=== PATIENT | female | born 1950 | race Caucasian/White ===

== ENCOUNTER 2017-02-14 07:49 | Emergency (ER) | payer MEDICARE, OTHER ==
[2017-02-14 07:56] VITALS: RESP 18; TEMP 97
[2017-02-14] MEDS ORDERED: HYDROcodone/APAP 5-325MG 1 EACH TAB PO STA (08:14)
--- NOTE | 2017-02-14 08:17 | ED ---
Fall HPI - General Chief Complaint: Fall Stated Complaint: fall knee injury Time Seen by Provider: 02/14/17 08:06 Source: patient, RN notes reviewed Mode of arrival: ambulatory Limitations: no limitations - History of Present Illness Initial Comments: 66-year-old female presents emergency Department with chief complaint of fall, left rib pain. Patient states that it was dark in the living room this morning states she tripped and fell. She states she bumped her left knee on the coffee table right knee on another object. Patient states that she is able to ambulate they're just sore. Patient states that she has no hip pain denies any neck or back pain. She states that she bumped her head on the couch but did not feel dazed or lose consciousness. Patient states that she has no headache no dizziness no blurred vision no focal weakness denies any nausea vomiting. Patient states she is left anterior to lateral rib pain and states it is worse with deep inspiration. Patient's had prior rib fractures on the right never on the left but states it feels very similar. Patient denies any other injuries at this time. Patient did not take anything for the pain. - Related Data Home Medications Medication Instructions Recorded Confirmed Ascorbic Acid [Vitamin C] 500 mg PO DAILY 06/25/15 02/17/16 Aspirin [Adult Low Dose Aspirin EC] 81 mg PO DAILY 06/25/15 02/17/16 Atenolol [Tenormin] 25 mg PO QAM 06/25/15 02/17/16 Atorvastatin [Lipitor] 20 mg PO Q48H 06/25/15 02/17/16 Enalapril Maleate [Vasotec] 10 mg PO BID 06/25/15 02/17/16 Gabapentin [Neurontin] 300 mg PO TID 06/25/15 02/17/16 Loratadine [Claritin] 10 mg PO DAILY 06/25/15 02/17/16 Multivit-Min/FA/Lycopen/Lutein 1 tab PO DAILY 06/25/15 02/17/16 [Centrum Silver Tablet] Potassium Gluconate 99 mg PO DAILY 06/25/15 02/17/16 Calcium Carbonate [Calcium] 1,200 mg PO DAILY 01/21/16 02/17/16 Furosemide [Lasix] 10 mg PO DAILY PRN 01/21/16 02/17/16 Hydrocodone/Acetaminophen [[place] 1 tab PO Q6H PRN 01/21/16 02/17/16 10-325] Ibuprofen [Motrin] 200 - 800 mg PO Q6HR PRN 01/21/16 02/17/16 Zinc Gluconate [Zinc] 50 mg PO DAILY 01/21/16 02/17/16 ALPRAZolam [Xanax] 1 mg PO HS 02/17/16 02/17/16 Cyclobenzaprine [Flexeril] 10 mg PO TID PRN 02/17/16 02/17/16 Previous Rx's Medication Instructions Recorded Meclizine [Antivert] 12.5 mg PO Q6H #30 tablet 02/17/16 Allergies Allergy/AdvReac Type Severity Reaction Status Date / Time Penicillins Allergy Swelling Verified 02/14/17 07:56 silver Allergy blister Verified 02/14/17 07:56 sulfamethoxazole Allergy Rash/Hives Verified 02/14/17 07:56 [From Bactrim] trimethoprim [From Bactrim] Allergy Rash/Hives Verified 02/14/17 07:56 adhesive AdvReac pulls skin Verified 02/14/17 07:56 off gold Allergy blister Uncoded 02/14/17 07:56 metal Allergy blister Uncoded 02/14/17 07:56 Review of Systems ROS Statement: Those systems with pertinent positive or pertinent negative responses have been documented in the HPI. ROS Other: All systems not noted in ROS Statement are negative. Past Medical History Past Medical History: Coronary Artery Disease (CAD), Hypertension Additional Past Medical History / Comment(s): neuropathy sciatica History of Any Multi-Drug Resistant Organisms: None Reported Past Surgical History: Heart Catheterization With Stent, Orthopedic Surgery Additional Past Surgical History / Comment(s): shoulder surg Past Anesthesia/Blood Transfusion Reactions: No Reported Reaction Date of Last Stent Placement:: 1998 Past Psychological History: No Psychological Hx Reported Smoking Status: Former smoker Past Alcohol Use History: Rare Past Drug Use History: None Reported - Past Family History Mother Family Medical History: No Reported History General Exam Limitations: no limitations General appearance: alert, in no apparent distress Head exam: Present: atraumatic, normocephalic, normal inspection Eye exam: Present: normal appearance, PERRL, EOMI. Absent: scleral icterus, conjunctival injection, periorbital swelling ENT exam: Present: normal exam, normal oropharynx, mucous membranes moist, TM's normal bilaterally, normal external ear exam Neck exam: Present: normal inspection, full ROM. Absent: tenderness, meningismus, lymphadenopathy Respiratory exam: Present: normal lung sounds bilaterally, chest wall tenderness (Moderate left anterior to lateral rib tenderness). Absent: respiratory distress, wheezes, rales, rhonchi, stridor Cardiovascular Exam: Present: regular rate, normal rhythm, normal heart sounds. Absent: systolic murmur, diastolic murmur, rubs, gallop, clicks GI/Abdominal exam: Present: soft, normal bowel sounds. Absent: distended, tenderness, guarding, rebound, rigid Extremities exam: Present: normal inspection, full ROM, normal capillary refill. Absent: tenderness, pedal edema, joint swelling, calf tenderness, other (Small area of ecchymosis noted to the left knee patient has full range of motion passive and active there is minimal tenderness, bilateral lower extremities full range of motion right knee small erythematous capri noted. Minimally tender in no pain with range of motion remaining extremity exam within normal limits) Back exam: Present: normal inspection, full ROM. Absent: tenderness, muscle spasm, paraspinal tenderness, vertebral tenderness Neurological exam: Present: alert, oriented X3, CN II-XII intact, reflexes normal. Absent: motor sensory deficit Skin exam: Present: warm, dry, intact, normal color. Absent: rash Course Vital Signs 02/14/17 07:52 Temperature 97.0 F L Pulse Rate 66 Respiratory 18 Rate Blood Pressure 200/81 O2 Sat by Pulse 97 Oximetry Medical Decision Making - Medical Decision Making 66-year-old female presented for fall. Patient primary complaint of left rib pain. Patient x-rays not showing any evidence of displaced rib fracture there may be a small nondisplaced that was not identified I did expenses the patient. Patient be discharged with pain medication advised to take 10 deep inspirations every hour. Return parameters were discussed. Patient had contusions noted to her knee had full range of motion and was able to ambulate. Patient states that she did hit her head but this is only on the couch padding she has no headache no dizziness. Disposition Clinical Impression: Fall, Contusion, knee, Contusion of rib on left side Disposition: HOME SELF-CARE Condition: Stable Instructions: Rib Contusion (ED) Additional Instructions: Please return to the Emergency Department if symptoms worsen or any other concerns. Referrals: Daniel Bansal DO [Primary Care Provider] - 1-2 days Time of Disposition: 08:42
--- NOTE | 2017-02-14 08:32 | XR ---
EXAMINATION TYPE: XR ribs LT w pa chest x-ray DATE OF EXAM: 02/14/2017 CLINICAL HISTORY: Following injury today with left-sided rib pain. TECHNIQUE: Single frontal view of the chest is obtained. A frontal and oblique images of the left-sided ribs are acquired. COMPARISON: None FINDINGS: There is chronic parenchymal change without suspicious focal air space opacity, pleural ef fusion, or pneumothorax seen bilaterally. The cardiac silhouette size is stable and upper limits of normal with atherosclerotic thoracic aorta. The osseous structures are demineralized. Dedicated images of the left-sided ribs show no acute displaced left-sided rib fracture. Incidental n ote is made of coronary stent on last image acquired. IMPRESSION: 1. No acute cardiopulmonary process. 2. No acute displaced left-sided rib fracture is evident.
[2017-02-14 09:00] VITALS: BP 162/77; PULSE 63
== END 2017-02-14 08:53 | disposition home or self-care (01) ==
LOC: EC 07:49
DX: S80.02XA Contusion of left knee, initial encounter (principal); S20.212A Contusion of left front wall of thorax, initial encounter; I10 Essential (primary) hypertension; I25.10 Atherosclerotic heart disease of native coronary artery without angina pectoris; Z87.891 Personal history of nicotine dependence; Z79.82 Long term (current) use of aspirin; Z79.899 Other long term (current) drug therapy; Z88.0 Allergy status to penicillin; Z88.2 Allergy status to sulfonamides; Z91.048 Other nonmedicinal substance allergy status; Z95.5 Presence of coronary angioplasty implant and graft; Z98.890 Other specified postprocedural states; W01.190A Fall on same level from slipping, tripping and stumbling with subsequent striking against furniture, initial encounter; Y92.009 Unspecified place in unspecified non-institutional (private) residence as the place of occurrence of the external cause
CPT/HCPCS: 99283

== ENCOUNTER 2017-02-24 14:10 | Emergency (ER) | payer MEDICARE, OTHER ==
[2017-02-24] MEDS ORDERED: KETOROLAC 30 MG/ML 1 ML VIAL IVP STA (15:03)
[2017-02-24] MEDS ORDERED: RX INFO: IV CONTRAST WAS GIVEN 1 EACH MISC MISCELLANE PRN (15:03)
--- NOTE | 2017-02-24 15:20 | ED ---
General Adult HPI - General Chief complaint: Recheck/Abnormal Lab/Rx Stated complaint: bruising/pain from fall last week Time Seen by Provider: 02/24/17 14:45 Source: patient Mode of arrival: ambulatory Limitations: no limitations - History of Present Illness Initial comments: Patient presents with a chief complaint of rib pain. She was seen one week ago after a fall accident. Patient had an x-ray that time that showed no acute fractures or intrathoracic process. Over the last week though the patient states that her pain has been getting worse. She has a bruise on her anterior chest. Patient states that it feels a deep ache, it is worsened with movement and palpation, and is alleviated with rest. Patient denies being short of breath, she states that she went for a 3 mile walk yesterday and did not have any difficulty and felt good. Patient did not have any other complaints at this time. - Related Data Home Medications Medication Instructions Recorded Confirmed Ascorbic Acid [Vitamin C] 500 mg PO DAILY 06/25/15 02/24/17 Aspirin [Adult Low Dose Aspirin EC] 81 mg PO DAILY 06/25/15 02/24/17 Atenolol [Tenormin] 25 mg PO QAM 06/25/15 02/24/17 Atorvastatin [Lipitor] 20 mg PO DAILY 06/25/15 02/24/17 Enalapril Maleate [Vasotec] 10 mg PO BID 06/25/15 02/24/17 Gabapentin [Neurontin] 300 mg PO TID 06/25/15 02/24/17 Loratadine [Claritin] 10 mg PO DAILY 06/25/15 02/24/17 Multivit-Min/FA/Lycopen/Lutein 1 tab PO DAILY 06/25/15 02/24/17 [Centrum Silver Tablet] Potassium Gluconate 99 mg PO DAILY 06/25/15 02/24/17 Calcium Carbonate [Calcium] 1,200 mg PO DAILY 01/21/16 02/24/17 Furosemide [Lasix] 10 mg PO DAILY PRN 01/21/16 02/24/17 Hydrocodone/Acetaminophen [[place] 1 tab PO Q6H PRN 01/21/16 02/24/17 10-325] Ibuprofen [Motrin] 200 - 800 mg PO Q6HR PRN 01/21/16 02/24/17 Zinc Gluconate [Zinc] 50 mg PO DAILY 01/21/16 02/24/17 ALPRAZolam [Xanax] 2 mg PO HS 02/24/17 02/24/17 Meclizine [Antivert] 12.5 mg PO Q6H PRN 02/24/17 02/24/17 Previous Rx's Medication Instructions Recorded Ibuprofen [Motrin] 800 mg PO Q6HR #21 tab 02/24/17 Methocarbamol [Robaxin] 500 mg PO QID #15 tab 02/24/17 Allergies Allergy/AdvReac Type Severity Reaction Status Date / Time Penicillins Allergy Swelling Verified 02/24/17 15:34 silver Allergy blister Verified 02/24/17 15:34 sulfamethoxazole Allergy Rash/Hives Verified 02/24/17 15:34 [From Bactrim] trimethoprim [From Bactrim] Allergy Rash/Hives Verified 02/24/17 15:34 adhesive AdvReac pulls skin Verified 02/24/17 15:34 off gold Allergy blister Uncoded 02/24/17 14:16 metal Allergy blister Uncoded 02/24/17 14:16 Review of Systems ROS Statement: Those systems with pertinent positive or pertinent negative responses have been documented in the HPI. Patient denies dizziness, lightheadedness, visual changes, chest pain, shortness of breath, nausea, vomiting, dysuria, constipation, diarrhea. ROS Other: All systems not noted in ROS Statement are negative. Past Medical History Past Medical History: Coronary Artery Disease (CAD), Hypertension Additional Past Medical History / Comment(s): neuropathy sciatica History of Any Multi-Drug Resistant Organisms: None Reported Past Surgical History: Heart Catheterization With Stent, Orthopedic Surgery Additional Past Surgical History / Comment(s): shoulder surg Past Anesthesia/Blood Transfusion Reactions: No Reported Reaction Date of Last Stent Placement:: 1998 Past Psychological History: No Psychological Hx Reported Smoking Status: Former smoker Past Alcohol Use History: Rare Past Drug Use History: None Reported - Past Family History Mother Family Medical History: No Reported History General Exam Limitations: no limitations General appearance: alert, in no apparent distress Head exam: Present: atraumatic, normocephalic Eye exam: Present: normal appearance, PERRL ENT exam: Present: normal exam, normal oropharynx Neck exam: Present: normal inspection Respiratory exam: Present: normal lung sounds bilaterally Cardiovascular Exam: Present: regular rate, normal rhythm GI/Abdominal exam: Present: soft Rectal exam: Present: deferred Extremities exam: Present: normal inspection Back exam: Present: normal inspection Neurological exam: Present: oriented X3 Psychiatric exam: Present: normal affect, normal mood Skin exam: Present: warm, dry, intact, other (Patient has ecchymosis over the anterior middle left aspect of her chest. There is some tenderness to palpation of the chest wall.) Course Vital Signs 02/24/17 02/24/17 02/24/17 14:16 15:29 16:37 Temperature 98.5 F 97.2 F L 98 F Pulse Rate 68 64 60 Respiratory 17 16 16 Rate Blood Pressure 147/89 132/70 102/60 O2 Sat by Pulse 97 98 95 Oximetry Medical Decision Making - Medical Decision Making Patient presents with a chief complaint anterior chest wall pain status post a fall 1 week ago. Patient was evaluated initially had a normal chest x-ray that showed no acute displaced fractures or intrathoracic process. Of note bone mineral density was diminished on that film. Patient returns today saying that her pain has increased over the last week and seems to be worse with movement. It is suspected that this is musculoskeletal in nature. Patient will be sent for a computed tomography scan of the chest today to rule out occult fracture. We'll send basic labs, and get EKG. Vital signs are stable initially, patient is in no acute distress. 3:42 PM EKG performed at 1536 shows normal sinus rhythm with a rate of 65 bpm. The left bundle branch block present. When compared to study performed 02/17/2016 EKG is similar. 5:43 PM Computed tomography scan of the chest with contrast shows no bony abnormality. Further there is no evidence of pleural effusion or lung contusion. At this point, patient is likely suffering from chest wall pain secondary to fall. Further discussion with the patient reveals that she has been taking Motrin periodically however she has not been on any consistent medications for pain control. I discussed appropriately dosed Motrin with her, and Robaxin for use at nighttime for sleep and muscle spasm. At this point, patient remains stable , she is safe for discharge and follow-up primary care. She is instructed to return to the emergency department if her symptoms worsen or change in anyway. - Lab Data Result diagrams: 02/24/17 15:20 02/24/17 15:20 Lab Results 02/24/17 02/24/17 Range/Units 15:20 15:20 WBC 7.7 (3.8-10.6) k/uL RBC 4.51 (3.80-5.40) m/uL Hgb 13.8 (11.4-16.0) gm/dL Hct 41.8 (34.0-46.0) % MCV 92.8 (80.0-100.0) fL MCH 30.7 (25.0-35.0) pg MCHC 33.1 (31.0-37.0) g/dL RDW 13.3 (11.5-15.5) % Plt Count 244 (150-450) k/uL Neutrophils % 61 % Lymphocytes % 28 % Monocytes % 6 % Eosinophils % 3 % Basophils % 1 % Neutrophils # 4.7 (1.3-7.7) k/uL Lymphocytes # 2.2 (1.0-4.8) k/uL Monocytes # 0.4 (0-1.0) k/uL Eosinophils # 0.3 (0-0.7) k/uL Basophils # 0.1 (0-0.2) k/uL Sodium 140 (137-145) mmol/L Potassium 4.3 (3.5-5.1) mmol/L Chloride 103 (98-107) mmol/L Carbon Dioxide 28 (22-30) mmol/L Anion Gap 9 mmol/L BUN 15 (7-17) mg/dL Creatinine 0.75 (0.52-1.04) mg/dL Est GFR (MDRD) Af Amer >60 (>60 ml/min/1.73 sqM) Est GFR (MDRD) Non-Af >60 (>60 ml/min/1.73 sqM) Glucose 87 (74-99) mg/dL Calcium 9.2 (8.4-10.2) mg/dL Disposition Clinical Impression: Chest pain, musculoskeletal, Contusion of rib on left side Disposition: HOME SELF-CARE Condition: Good Instructions: Chest Pain (ED) Prescriptions: Ibuprofen [Motrin] 800 mg PO Q6HR #21 tab Methocarbamol [Robaxin] 500 mg PO QID #15 tab Referrals: Daniel Bansal DO [Primary Care Provider] - 1-2 days
[2017-02-24 15:30] VITALS: RESP 16
[2017-02-24 15:40] LABS: Basophils # (A) 0.1 k/uL (0-0.2); Basophils % (A) 1 %; CH 31.1; CHCM 33.6; Eosinophils # (A) 0.3 k/uL (0-0.7); Eosinophils % (A) 3 %; HCT 41.8 % (34.0-46.0); HDW 2.35; HGB 13.8 gm/dL (11.4-16.0); Luc # (Auto) 0.11; Luc % (Auto) 1; Lymphocytes # (A) 2.2 k/uL (1.0-4.8); Lymphocytes % (A) 28 %; MCH 30.7 pg (25.0-35.0); MCHC 33.1 g/dL (31.0-37.0); MCV 92.8 fL (80.0-100.0); Mean Platelet Volume 7.7; Monocytes # (A) 0.4 k/uL (0-1.0); Monocytes % (A) 6 %; Neutrophils # (A) 4.7 k/uL (1.3-7.7); Neutrophils % (A) 61 %; RBC 4.51 m/uL (3.80-5.40); RDW 13.3 % (11.5-15.5); WBC 7.7 k/uL (3.8-10.6); WBC (Perox) 7.37
[2017-02-24 15:49] LABS: Anion Gap 9 mmol/L; Blood Urea Nitrogen 15 mg/dL (7-17); Calcium 9.2 mg/dL (8.4-10.2); Carbon Dioxide 28 mmol/L (22-30); Chloride 103 mmol/L (98-107); Glucose 87 mg/dL (74-99); Non-African American GFR(MDRD) >60 (>60 ml/min/1.73 sqM); Potassium 4.3 mmol/L (3.5-5.1); Sodium 140 mmol/L (137-145)
--- NOTE | 2017-02-24 17:13 | CT ---
EXAMINATION TYPE: CT chest w con DATE OF EXAM: 02/24/2017 COMPARISON: NONE HISTORY: Fall 1 week ago. Left sided rib pain and bruising. CT DLP: 806.20 mGycm Automated exposure control for dose reduction was used. CONTRAST: CT scan of the chest is performed with IV Contrast, patient injected with 100 mL of Omnipaque 300. FINDINGS: There is no acute or subacute fracture or malalignment. Multifocal right rib remodeling not ed, consistent with remote healed prior fractures. LUNGS: The lungs are grossly clear, there is no concerning parenchymal mass or nodule identified. T here is no pleural effusion or pneumothorax seen. The tracheobronchial tree is patent. MEDIASTINUM: There are no greater than 1 cm hilar or mediastinal lymph nodes. No pericardial effusi on is seen. There is mild enlargement of the cardiac silhouette with panchamber enlargement. Prominen t left and right coronary calcifications are appreciated on in addition to scattered atherosclerotic locations throughout the visualized arterial anatomy. OTHER: The spleen and remainder of the visualized subdiaphragmatic structures are unremarkable. No a dditional significant abnormality is seen. IMPRESSION: 1. Negative for acute or subacute fracture or malalignment. Negative for pleural effusion or pneumoth orax. 2. Incidental coronary calcifications.
[2017-02-24 17:59] VITALS: BP 115/70; PULSE 57; TEMP 97.4
== END 2017-02-24 17:59 | disposition home or self-care (01) ==
LOC: EC 14:10
DX: S20.212D Contusion of left front wall of thorax, subsequent encounter (principal); R07.89 Other chest pain; I44.7 Left bundle-branch block, unspecified; I25.10 Atherosclerotic heart disease of native coronary artery without angina pectoris; I10 Essential (primary) hypertension; Z87.891 Personal history of nicotine dependence; Z88.0 Allergy status to penicillin; Z88.2 Allergy status to sulfonamides; Z91.048 Other nonmedicinal substance allergy status; Z79.82 Long term (current) use of aspirin; Z79.899 Other long term (current) drug therapy
CPT/HCPCS: 36415; 93005; 80048; 85025; 71260; 99284; 96374; J1885; Q9967

== ENCOUNTER 2017-11-26 11:55 | Emergency (ER) | payer MEDICARE ==
[2017-11-26 12:06] VITALS: BP 139/73; PULSE 64; RESP 18; TEMP 98.4
--- NOTE | 2017-11-26 12:24 | ED ---
Fall HPI - General Chief Complaint: Fall Stated Complaint: Fell/shoulder/arm injury Time Seen by Provider: 11/26/17 12:12 Source: patient, RN notes reviewed Mode of arrival: wheelchair Limitations: no limitations - History of Present Illness Initial Comments: This is a pleasant 67-year-old female who presents emergency department after falling at her mother's nursing facility. She states that she stubbed her toe on a wood floor tripping forward and falling into a door jam. Patient states that the majority pain is at the right elbow. Although she does have some pain radiating toward the wrist and toward the shoulder. Patient states the pain is sharp, exacerbated by movement, relieved by rest, patient also has some mild pain to the right side of her neck, however, no midline tenderness. No shortness of breath or chest pain. No abdominal pain. No rib pain. Patient was able to get up and walk on her own. Patient sustained no head injury, no loc. no other injury. Onset/Timin -: hour(s) Fall From: standing When Fall Occurred: 1 hour [employer] Fall Witnessed: yes, by family, yes, by bystander Loss of Consciousness: none Prolonged Down Time?: no Symptoms Prior to Fall: none Location - Extremities: Right: Shoulder, Elbow, Hand Severity: severe Quality: sharp Context: tripped/slipped - Related Data Home Medications Medication Instructions Recorded Confirmed Ascorbic Acid [Vitamin C] 500 mg PO DAILY 06/25/15 02/24/17 Aspirin [Adult Low Dose Aspirin EC] 81 mg PO DAILY 06/25/15 02/24/17 Atenolol [Tenormin] 25 mg PO QAM 06/25/15 02/24/17 Atorvastatin [Lipitor] 20 mg PO DAILY 06/25/15 02/24/17 Enalapril Maleate [Vasotec] 10 mg PO BID 06/25/15 02/24/17 Gabapentin [Neurontin] 300 mg PO TID 06/25/15 02/24/17 Loratadine [Claritin] 10 mg PO DAILY 06/25/15 02/24/17 Multivit-Min/FA/Lycopen/Lutein 1 tab PO DAILY 06/25/15 02/24/17 [Centrum Silver Tablet] Potassium Gluconate 99 mg PO DAILY 06/25/15 02/24/17 Calcium Carbonate [Calcium] 1,200 mg PO DAILY 01/21/16 02/24/17 Furosemide [Lasix] 10 mg PO DAILY PRN 01/21/16 02/24/17 Hydrocodone/Acetaminophen [[place] 1 tab PO Q6H PRN 01/21/16 02/24/17 10-325] Ibuprofen [Motrin] 200 - 800 mg PO Q6HR PRN 01/21/16 02/24/17 Zinc Gluconate [Zinc] 50 mg PO DAILY 01/21/16 02/24/17 ALPRAZolam [Xanax] 2 mg PO HS 02/24/17 02/24/17 Meclizine [Antivert] 12.5 mg PO Q6H PRN 02/24/17 02/24/17 Previous Rx's Medication Instructions Recorded Ibuprofen [Motrin] 800 mg PO Q6HR #21 tab 02/24/17 Methocarbamol [Robaxin] 500 mg PO QID #15 tab 02/24/17 HYDROcodone/APAP 5-325MG [[place] 1 tab PO Q6HR PRN 3 Days #12 tab 11/26/17 5-325] Allergies Allergy/AdvReac Type Severity Reaction Status Date / Time Penicillins Allergy Swelling Verified 11/26/17 12:06 silver Allergy blister Verified 11/26/17 12:06 sulfamethoxazole Allergy Rash/Hives Verified 11/26/17 12:06 [From Bactrim] trimethoprim [From Bactrim] Allergy Rash/Hives Verified 11/26/17 12:06 adhesive AdvReac pulls skin Verified 11/26/17 12:06 off gold Allergy blister Uncoded 11/26/17 12:06 metal Allergy blister Uncoded 11/26/17 12:06 Review of Systems ROS Statement: Those systems with pertinent positive or pertinent negative responses have been documented in the HPI. ROS Other: All systems not noted in ROS Statement are negative. Past Medical History Past Medical History: Coronary Artery Disease (CAD), Hypertension Additional Past Medical History / Comment(s): neuropathy sciatica History of Any Multi-Drug Resistant Organisms: None Reported Past Surgical History: Heart Catheterization With Stent, Orthopedic Surgery Additional Past Surgical History / Comment(s): shoulder surg Past Anesthesia/Blood Transfusion Reactions: No Reported Reaction Date of Last Stent Placement:: 1998 Past Psychological History: No Psychological Hx Reported Smoking Status: Former smoker Past Alcohol Use History: Rare Past Drug Use History: None Reported Additional History: Past medical history was reviewed - Past Family History Mother Family Medical History: No Reported History General Exam - General Exam Comments Initial Comments: this is an obese female in mild distress. Limitations: no limitations General appearance: alert, in no apparent distress Head exam: Present: atraumatic, normocephalic, normal inspection Eye exam: Present: normal appearance, PERRL, EOMI. Absent: scleral icterus, conjunctival injection, periorbital swelling ENT exam: Present: normal exam, mucous membranes moist Neck exam: Present: normal inspection, tenderness (right side neck muscular), full ROM. Absent: meningismus, lymphadenopathy Respiratory exam: Present: normal lung sounds bilaterally. Absent: respiratory distress, wheezes, rales, rhonchi, stridor Cardiovascular Exam: Present: regular rate, normal rhythm, normal heart sounds. Absent: systolic murmur, diastolic murmur, rubs, gallop, clicks GI/Abdominal exam: Present: soft. Absent: distended, tenderness, guarding, rebound, rigid Extremities exam: Present: normal inspection, tenderness, normal capillary refill. Absent: full ROM, pedal edema, joint swelling, calf tenderness Right Shoulder Exam: Present: normal inspection, tenderness. Absent: full ROM, swelling, abrasion, laceration, ecchymosis, deformity, crepitus, dislocation, erythema, tenderness over AC joint Upper Arm exam: Present: normal inspection. Absent: tenderness Elbow exam: Present: normal inspection, tenderness. Absent: full ROM, swelling , abrasion, ecchymosis Forearm Wrist exam: Present: normal inspection, full ROM. Absent: tenderness Hand Wrist exam: Present: normal inspection, full ROM, tenderness. Absent: swelling, abrasion Neuro motor exam: Present: wrist extension intact, thumb opposition intact, thumb IP flexion intact, thumb adduction intact, fingers 2-5 abduction intact Vascular: Present: normal capillary refill. Absent: vascular compromise, Pallo , pulse deficit radial art, pulse deficit ulnar art, pulse deficit brachial art Back exam: Present: normal inspection, full ROM Neurological exam: Present: alert, oriented X3, CN II-XII intact Psychiatric exam: Present: normal affect, normal mood Skin exam: Present: warm, dry, intact, normal color. Absent: rash Course Vital Signs 11/26/17 12:02 Temperature 98.4 F Pulse Rate 64 Respiratory 18 Rate Blood Pressure 139/73 O2 Sat by Pulse 97 Oximetry Procedures - Orthopedic Splinting/Casting Injury #1 Side: right Upper Extremity Injury Location: elbow Upper Extremity Immobilizer: ulnar gutter (Long-arm, sling. Neurovascular status intact both pre-and post-application.) Medical Decision Making - Medical Decision Making I did review all of the plain film x-rays of the cervical spine, right shoulder , right elbow, right wrist, there were no abnormalities, acutely to the shoulder wrist and cervical spine as read by me awaiting radiology interpretation. I do believe there is a posterior fat pad on the right elbow, which is subtle. Studies were read by radiology prior to patient discharge. They were read as normal. Given the patient's symptomology and pain with supination and pronation I'm going to go ahead and splint her as well as put her in a sling and follow her up with orthopedics. We'll treat as a fractured otherwise noted. Return and follow-up parameters discussed. Case discussed with ER attending physician. Return to the ER at once if the symptoms worsen or problems or difficulties arise. Disposition Clinical Impression: Fracture of radial head, right, closed, Sprain of wrist, right, Cervical strain , acute, Strain of right shoulder Disposition: HOME SELF-CARE Condition: Good Instructions: Fall Prevention for Older Adults (ED), Elbow Fracture (ED), Rotator Cuff Injury (ED) Additional Instructions: Return to the ER at once if the symptoms worsen or problems or difficulties arise. Prescriptions: HYDROcodone/APAP 5-325MG [[place] 5-325] 1 tab PO Q6HR PRN 3 Days #12 tab PRN Reason: Pain Is patient prescribed a controlled substance at d/c from ED?: Yes When asked, does pt state using other controlled substances?: No Referrals: Nabil Mireles MD [STAFF PHYSICIAN] - 11/28/17 Time of Disposition: 13:38
[2017-11-26] MEDS ORDERED: MORPHINE SULFATE 4 MG/ML SYRINGE IM STA (13:15)
[2017-11-26] MEDS ORDERED: KETOROLAC 60 MG/2 ML VIAL IM STA (13:15)
--- NOTE | 2017-11-26 13:16 | XR ---
EXAMINATION TYPE: XR elbow complete RT , 3 VIEWS DATE OF EXAM ORDERED: 11/26/2017 HISTORY: Pain. COMPARISON: None. FINDINGS: No fracture, dislocation or elbow joint effusion is seen. IMPRESSION: NO ACUTE OSSEOUS LESION.
--- NOTE | 2017-11-26 13:18 | XR ---
EXAMINATION TYPE: XR wrist complete RT , 4 VIEWS DATE OF EXAM ORDERED: 11/26/2017 HISTORY: Pain. COMPARISON: None. FINDINGS: There are degenerative changes in the right first carpal metacarpal joint. There is an uln ar minus variant. No fracture is identified. A well-corticated ossific fragment just distal to the ul enid styloid may relate to previous trauma. There is some mild widening of the scapholunate distance. IMPRESSION: 1. NO ACUTE OSSEOUS LESION. 2. EVIDENCE OF PREVIOUS TRAUMA. 3. I COULD NOT EXCLUDE DISRUPTION OF THE SCAPHOLUNATE LIGAMENT. 4. DEGENERATIVE CHANGE IN THE FIRST CARPAL METACARPAL JOINT.
--- NOTE | 2017-11-26 13:19 | XR ---
EXAMINATION TYPE: XR shoulder complete RT , 4 VIEWS DATE OF EXAM ORDERED: 11/26/2017 HISTORY: Pain. COMPARISON: None. FINDINGS: No fracture, dislocation or other acute osseous lesion is seen. IMPRESSION: NO ACUTE OSSEOUS LESION.
--- NOTE | 2017-11-26 13:20 | XR ---
EXAMINATION TYPE: XR cervical spine limited , 4 VIEWS DATE OF EXAM ORDERED: 11/26/2017 HISTORY: Pain. COMPARISON: None. FINDINGS: The spine is only well-visualized the level of C5 in the lateral projection. Alignment bel ow this level is normal. Atlantoaxial relationships are normal. No acute fracture is seen. Prevertebr al soft tissues are normal. IMPRESSION: LIMITED STUDY DEMONSTRATING NO ACUTE OSSEOUS LESION.
== END 2017-11-26 14:10 | disposition home or self-care (01) ==
LOC: EC 11:55
DX: S52.121A Displaced fracture of head of right radius, initial encounter for closed fracture (principal); S63.501A Unspecified sprain of right wrist, initial encounter; S16.1XXA Strain of muscle, fascia and tendon at neck level, initial encounter; S46.911A Strain of unspecified muscle, fascia and tendon at shoulder and upper arm level, right arm, initial encounter; M54.2 Cervicalgia; I10 Essential (primary) hypertension; I25.10 Atherosclerotic heart disease of native coronary artery without angina pectoris; G62.9 Polyneuropathy, unspecified; E66.9 Obesity, unspecified; Z87.891 Personal history of nicotine dependence; Z79.82 Long term (current) use of aspirin; Z79.899 Other long term (current) drug therapy; Z88.0 Allergy status to penicillin; Z88.1 Allergy status to other antibiotic agents; Z91.09 Other allergy status, other than to drugs and biological substances; Z98.890 Other specified postprocedural states; Z68.36 Body mass index [BMI] 36.0-36.9, adult; W18.09XA Striking against other object with subsequent fall, initial encounter; Y92.89 Other specified places as the place of occurrence of the external cause
CPT/HCPCS: 99283; 29105; 96372 ×2; 72040; 73030; 73080; 73110; J2270; J1885

== ENCOUNTER → 2017-12-06 | Outpatient (CLI) | payer MEDICARE ==
--- NOTE | 2017-12-06 12:37 | XR ---
EXAMINATION TYPE: XR knee complete RT DATE OF EXAM: 12/06/2017 COMPARISON: NONE HISTORY: Fall on right side November 26 pain TECHNIQUE: Three-view right knee FINDINGS: There is narrowing of the medial compartment joint space. Lateral femoral condylar and late ral tibial plateau spurring is present. No acute fractures evident. No joint effusion is evident. There is loss of the patellofemoral joint s pace with posterior patellar spurring superiorly and inferiorly. Upright views were obtained. There i s greater loss of the joint space of the long the medial compartment on the upright views. IMPRESSION: 1. Moderately advanced degenerative change medial compartment right knee. Moderate narrowing of the patellofemoral joint space is present and spurring is present from the lateral compartment joint spac e. 2. No acute fractures identified
--- NOTE | 2017-12-06 13:12 | XR ---
EXAMINATION TYPE: XR ankle complete RT DATE OF EXAM: 12/06/2017 COMPARISON: NONE HISTORY: Pain left knee pain right ankle SIDE SWELLING TECHNIQUE: Three-view right ankle is performed. FINDINGS: Ankle mortise is intact. No displaced fractures are evident. Diffuse soft tissue swelling m ay be present, slightly greater along the lateral malleolus region. Plantar and Achilles tendon calca stephanie heel spurs are present. IMPRESSION: 1. Mild diffuse soft tissue swelling. 2. Calcaneal heel spurs.
== END | disposition home or self-care (01) ==
LOC: RADXRMAIN 09:37
PROVIDERS: ATTEND Family Medicine
DX: M77.31 Calcaneal spur, right foot (principal); M79.89 Other specified soft tissue disorders; M76.41 Tibial collateral bursitis [Pellegrini-Stieda], right leg

== ENCOUNTER → 2018-02-21 | Outpatient (CLI) | payer MEDICARE ==
--- NOTE | 2018-02-21 23:16 | BD ---
EXAMINATION TYPE: Axial Bone Density DATE OF EXAM: 02/21/2018 COMPARISON: NONE CLINICAL HISTORY: 67-year-old female osteoporosis Height: 5 FT 1 1/2 IN Weight: 281 FRAX RISK QUESTIONS: History of Fracture in Adulthood: YES RISK FACTORS HISTORY OF: History of Wrist Fracture: YES When: 2017 Active: YES Postmenopausal woman: AGE 50 Lost more than 2 inches in height since high school: YES Frequent falls: YES MEDICATIONS: Additional Medications: ZINC, NEURONTIN, IMDUR, ATENOLOL, LASIX, Additional History: ZINC, EXAM MEASUREMENTS: Bone mineral densitometry was performed using the [employer] System. Bone mineral density as measured about the Lumbar spine is: ----- L1-L4(G/cm2): 1.243 T Score Values are as follows: ----- L2: -0.2 ----- L3: 0.9 ----- L4: 0.7 ----- L1-L4: 0.5 BASELINE Bone mineral density about the R hip (g/cm2): 0.879 Bone mineral density about the L hip (g/cm2): 0.892 T Score values are as follows: -----R Neck: -1.1 -----L Neck: -1.1 -----R Total: -0.4 -----L Total: -0.6 BASELINE IMPRESSION: Osteopenia (T Score between -2.5 and -1). There is slightly increased risk of fracture and the patient may be considered for treatment. Re-Screen 2-5 years. NOTE: T-SCORE=SD OF THE YOUNG ADULT MEAN.
--- NOTE | 2018-02-22 13:55 | MM ---
Reason for exam: screening (asymptomatic). Last mammogram was performed 1 year and 10 months ago. History: Patient is postmenopausal. Physical Findings: A clinical breast exam by your physician is recommended on an annual basis and results should be correlated with mammographic findings. MG Screening Mammo w CAD Bilateral CC and MLO view(s) were taken. Prior study comparison: April 23, 2016, bilateral MG screening mammo w CAD. September 11, 2012, bilateral digital screening mammo w/CAD. There are scattered fibroglandular densities. Benign appearing bilateral calcifications. There is no discrete abnormality. ASSESSMENT: Benign, BI-RAD 2 RECOMMENDATION: Routine screening mammogram of both breasts in 1 year.
== END | disposition home or self-care (01) ==
LOC: RADMAMWWP 11:50
PROVIDERS: ATTEND Family Medicine
DX: Z12.31 Encounter for screening mammogram for malignant neoplasm of breast (principal); M85.80 Other specified disorders of bone density and structure, unspecified site; M19.90 Unspecified osteoarthritis, unspecified site
CPT/HCPCS: 77067; 77080

== ENCOUNTER → 2018-07-25 | Outpatient (CLI) | payer MEDICARE ==
--- NOTE | 2018-07-25 13:33 | XR ---
EXAMINATION TYPE: XR shoulder complete 3 views LT, XR humerus 2 views LT XR forearm 2 views LT XR knee complete 3 views LT DATE OF EXAM: 07/25/2018 COMPARISON: NONE HISTORY: 68-year-old female with pain since trauma in fall FINDINGS: Left shoulder: Mild degenerative joint space narrowing and marginal spurring at the acromioclavicular joint. There i s prominent bony irregularity at the greater tuberosity. No acute fracture, subluxation, or dislocati on is seen. Some limitation in the exam due to underpenetration. Humerus: No humeral shaft fracture. Elbow articulation appears grossly intact. Forearm: No elbow joint effusion. No acute fracture of the visualized radius or ulna. Moderate to severe degen erative changes at the base of the thumb. Left knee: Left knee total arthroplasty is present. Both distal femoral and proximal tibial components of prosth esis appear well seated without periprosthetic fracture. Alignment grossly anatomic. Extensor mechani sm appears intact. Some nonspecific soft tissue calcifications anteromedially below the level of the knee joint line, nonspecific soft tissue calcifications or phleboliths. No knee joint effusion. IMPRESSION: 1. Left shoulder: Mild AC joint OA. Bony changes suggesting chronic rotator cuff tendinopathy. No acu te osseous abnormality seen. 2. Humerus and forearm: No acute osseous abnormality seen. Moderate to severe osteoarthrosis at the b ase of the thumb. 3. Left knee: Uncomplicated left total knee arthroplasty.
== END | disposition home or self-care (01) ==
LOC: RADXRMAIN 08:41
PROVIDERS: ATTEND Family Medicine
DX: M19.012 Primary osteoarthritis, left shoulder (principal); M19.042 Primary osteoarthritis, left hand; M79.602 Pain in left arm; M25.562 Pain in left knee; Z96.652 Presence of left artificial knee joint

== ENCOUNTER → 2018-12-05 | Outpatient (CLI) | payer MEDICARE ==
--- NOTE | 2018-12-05 15:15 | XR ---
EXAMINATION TYPE: XR hand complete RT DATE OF EXAM: 12/05/2018 CLINICAL HISTORY: First digit right hand pain at the metacarpal phalangeal joint after injury one yea r ago TECHNIQUE: Frontal, lateral and oblique images of the right hand are obtained. COMPARISON: 11/26/2017 FINDINGS: There is no acute fracture/dislocation evident in the right hand. There is advanced arthro jarek of the first carpometacarpal joint with opposing surface sclerosis, joint space narrowing, and osseous laceration. Findings are seen to a much lesser degree of the distal interphalangeal joints in the distribution of osteoarthritis. There is a well-corticated ovoid osseous fragment of the distal ulna from prior fracture deformity. Negative ulnar variance is also incidentally noted. Exam there is slight widening of the scapholunate interval as seen on the prior of 11/26/2017. The overlying soft tissue appears unremarkable. IMPRESSION: 1. There is no acute fracture or dislocation in the right hand. 2. Extensive arthropathy of the first carpometacarpal joint and mild of the distal interphalangeal eve int in the distribution of osteoarthritis. 3. Persistent widening of the scapholunate interval that may relate to scapholunate ligament tear and could be confirmed with MRI.
== END | disposition home or self-care (01) ==
LOC: RADXRMAIN 14:23
PROVIDERS: ATTEND Family Medicine
DX: M18.11 Unilateral primary osteoarthritis of first carpometacarpal joint, right hand (principal); M19.041 Primary osteoarthritis, right hand

== ENCOUNTER → 2019-04-13 | Outpatient (CLI) | payer MEDICARE ==
--- NOTE | 2019-04-17 08:23 | MM ---
Reason for exam: screening (asymptomatic). Last mammogram was performed 1 year and 2 months ago. History: Patient is postmenopausal. Physical Findings: A clinical breast exam by your physician is recommended on an annual basis and results should be correlated with mammographic findings. MG 3D Screening Mammo W/Cad Bilateral CC and MLO view(s) were taken. Prior study comparison: February 21, 2018, bilateral MG screening mammo w CAD. April 23, 2016, bilateral MG screening mammo w CAD. There are scattered fibroglandular densities. No significant changes when compared with prior studies. ASSESSMENT: Negative, BI-RAD 1 RECOMMENDATION: Routine screening mammogram of both breasts in 1 year.
== END | disposition home or self-care (01) ==
LOC: RADMAMWWP 09:56
PROVIDERS: ATTEND Family Medicine
DX: Z12.31 Encounter for screening mammogram for malignant neoplasm of breast (principal)
CPT/HCPCS: 77063; 77067

== ENCOUNTER 2019-05-05 08:58 | Emergency (ER) | payer MEDICARE ==
[2019-05-05] MEDS ORDERED: LIDOCAINE 2% GEL 30 ML TUBE TOPICAL ONE (09:18)
--- NOTE | 2019-05-05 09:21 | ED ---
Fall HPI - General Chief Complaint: Fall Stated Complaint: FALL, LEFT EAR LAC Time Seen by Provider: 05/05/19 09:05 Source: patient, EMS Mode of arrival: EMS Limitations: no limitations - History of Present Illness Initial Comments: 68-year-old female presents emergency Department with chief complaint of fall, head injury. Patient states that she slipped getting out of bed she states that she may have lost consciousness when she struck her head. Patient has a laceration to her left ear her tetanus is up-to-date last 5 years. Patient complains of left-sided headache pain denies neck pain, no extremity pain denies any back or upper and lower back pain. Denies any blood thinners. - Related Data Home Medications Medication Instructions Recorded Confirmed Aspirin [Adult Low Dose Aspirin EC] 81 mg PO DAILY 06/25/15 05/05/19 Atorvastatin [Lipitor] 20 mg PO HS 06/25/15 05/05/19 Gabapentin [Neurontin] 300 mg PO BID 06/25/15 05/05/19 Multivit-Min/FA/Lycopen/Lutein 1 tab PO DAILY 06/25/15 05/05/19 [Centrum Silver Tablet] Potassium Gluconate 99 mg PO DAILY 06/25/15 05/05/19 Furosemide [Lasix] 10 mg PO DAILY PRN 01/21/16 05/05/19 Zinc Gluconate [Zinc] 50 mg PO DAILY 01/21/16 05/05/19 ALPRAZolam [Xanax] 2 mg PO HS 02/24/17 05/05/19 Meclizine [Antivert] 12.5 mg PO Q6H PRN 02/24/17 05/05/19 Atenolol [Tenormin] 50 mg PO DAILY 05/05/19 05/05/19 Bromfenac Sodium [Prolensa Ophth 1 drop LEFT EYE DIRECTED 05/05/19 05/05/19 Soln] Calcium Carbonate/Vitamin D3 1 tab PO DAILY 05/05/19 05/05/19 [Calcium 500-Vit D3 200 Tablet] DULoxetine HCL [Cymbalta] 60 mg PO DAILY 05/05/19 05/05/19 Difluprednate [Durezol] 1 drop LEFT EYE DIRECTED 05/05/19 05/05/19 Enalapril Maleate [Vasotec] 20 mg PO BID 05/05/19 05/05/19 Loteprednol Etabonate [Alrex] 1 drop BOTH EYES DAILY 05/05/19 05/05/19 Ofloxacin 0.3% Ophth Soln [Ocuflox 1 drops LEFT EYE DIRECTED 05/05/19 05/05/19 Ophth Soln] Tetrahydrozoline HCl/Zinc Sulf 1 drop BOTH EYES DAILY PRN 05/05/19 05/05/19 [Visine Allergy Relief Drop] Allergies Allergy/AdvReac Type Severity Reaction Status Date / Time Penicillins Allergy Swelling Verified 05/05/19 09:43 silver Allergy blister Verified 05/05/19 09:43 sulfamethoxazole Allergy Rash/Hives Verified 05/05/19 09:43 [From Bactrim] trimethoprim [From Bactrim] Allergy Rash/Hives Verified 05/05/19 09:43 adhesive AdvReac pulls skin Verified 05/05/19 09:43 off gold Allergy blister Uncoded 05/05/19 09:43 metal Allergy blister Uncoded 05/05/19 09:43 Review of Systems ROS Statement: Those systems with pertinent positive or pertinent negative responses have been documented in the HPI. ROS Other: All systems not noted in ROS Statement are negative. Past Medical History Past Medical History: Coronary Artery Disease (CAD), Hypertension Additional Past Medical History / Comment(s): neuropathy sciatica History of Any Multi-Drug Resistant Organisms: None Reported Past Surgical History: Heart Catheterization With Stent, Orthopedic Surgery Additional Past Surgical History / Comment(s): shoulder surg, heart stents in 1997 Past Anesthesia/Blood Transfusion Reactions: No Reported Reaction Date of Last Stent Placement:: 1998 Past Psychological History: No Psychological Hx Reported Smoking Status: Former smoker Past Alcohol Use History: Rare Past Drug Use History: None Reported - Past Family History Mother Family Medical History: No Reported History General Exam General appearance: alert, in no apparent distress Head exam: Present: atraumatic, normocephalic, normal inspection Eye exam: Present: normal appearance, PERRL, EOMI. Absent: scleral icterus, conjunctival injection, periorbital swelling ENT exam: Present: normal oropharynx, mucous membranes moist, TM's normal bilaterally. Absent: normal exam, normal external ear exam (2 cm V-shaped laceration on posterior aspect of the left ear) Neck exam: Present: normal inspection, full ROM. Absent: tenderness, meningismus, lymphadenopathy Respiratory exam: Present: normal lung sounds bilaterally. Absent: respiratory distress, wheezes, rales, rhonchi, stridor Cardiovascular Exam: Present: regular rate, normal rhythm, normal heart sounds. Absent: systolic murmur, diastolic murmur, rubs, gallop, clicks Neurological exam: Present: alert, oriented X3, CN II-XII intact, reflexes normal. Absent: motor sensory deficit Skin exam: Present: warm, dry, intact, normal color. Absent: rash Course Vital Signs 05/05/19 08:59 Temperature 98.6 F Pulse Rate 74 Respiratory 18 Rate Blood Pressure 168/81 O2 Sat by Pulse 96 Oximetry Procedures - Laceration Laceration #1 Consent Obtained: verbal consent Indication: laceration Site: other (Left ear) Size (cm): 2 Description: flap, irregular Depth: simple, single layer Anesthetic Used: lidocaine 1%, without epi Anesthesia Technique: local infiltration Amount (mls): 3 Pre-repair: wound explored, irrigated extensively, deep structures intact Type of Sutures: nylon Size of Sutures: 5-0 Number of Sutures: 7 Technique: simple, interrupted Patient Tolerated Procedure: well, no complications Medical Decision Making - Medical Decision Making Patient CT of the brain and C-spine are unremarkable. Patient did have an irregular extensive laceration of her left ear this was approximated. We discussed wound care, wound recheck within 48 hours and return parameters. Disposition Clinical Impression: Fall, Laceration of left ear, Head injury Disposition: HOME SELF-CARE Condition: Stable Instructions (If sedation given, give patient instructions): Care For Your Stit ches (ED), Laceration (ED) Additional Instructions: Have sutures removed in 7 days.Please return to the Emergency Department if symptoms worsen or any other concerns. Is patient prescribed a controlled substance at d/c from ED?: No Referrals: Daniel Bansal DO [Primary Care Provider] - 1-2 days Time of Disposition: 11:06
--- NOTE | 2019-05-05 10:01 | CT ---
EXAMINATION TYPE: CT brain sandy rosario con DATE OF EXAM: 05/05/2019 COMPARISON: Previous study dated 01/04/2015. HISTORY: Fall, Left ear laceration CT DLP: 1837.4 mGycm Automated exposure control for dose reduction was used. TECHNIQUE: CT scan of the head and cervical spine are performed without contrast. FINDINGS: BRAIN: There are generalized changes of sulcal prominence and ventriculomegaly, compatible with atrop hic change. There is diffuse periventricular white matter lucency, compatible with chronic white katy er ischemic change. There is no acute focal lesion, mass effect or midline shift identified. I do not see evidence of intracranial blood. There is chronic mucoperiosteal thickening involving the maxillary sinuses bilaterally. The mastoid a ir cells are clear. The bony calvarium is intact. IMPRESSION: 1. NO ACUTE INTRACRANIAL ABNORMALITY. 2. MILD DEGENERATIVE CHANGE. 3. CHRONIC, BILATERAL MAXILLARY SINUS MUCOSAL DISEASE. CERVICAL SPINE: Visualized portions of the lungs are clear. Prevertebral soft tissues are normal. Vertebral body height and alignment are maintained. Atlantoaxial relationships are normal. There is d egenerative disc disease and mild hypertrophic spondylosis at C5-6. The facet and uncovertebral joint s are normal. No definite protrusion is seen. No fractures are identified. IMPRESSION: 1. NO ACUTE OSSEOUS LESION. 2. MINIMAL DEGENERATIVE CHANGE.
[2019-05-05] MEDS ORDERED: LIDOCAINE 1% INJ 10MG/ML (20 ML MDV) SQ ONE (10:24)
[2019-05-05 11:24] VITALS: BP 141/95; PULSE 66; RESP 16; TEMP 97.6
== END 2019-05-05 11:25 | disposition home or self-care (01) ==
LOC: EC 08:58
DX: S01.312A Laceration without foreign body of left ear, initial encounter (principal); I25.10 Atherosclerotic heart disease of native coronary artery without angina pectoris; I10 Essential (primary) hypertension; Z79.82 Long term (current) use of aspirin; Z79.899 Other long term (current) drug therapy; Z88.0 Allergy status to penicillin; Z88.1 Allergy status to other antibiotic agents; Z88.2 Allergy status to sulfonamides; Z91.048 Other nonmedicinal substance allergy status; Z88.8 Allergy status to other drugs, medicaments and biological substances; Z95.5 Presence of coronary angioplasty implant and graft; Z87.891 Personal history of nicotine dependence; W06.XXXA Fall from bed, initial encounter; Y92.003 Bedroom of unspecified non-institutional (private) residence as the place of occurrence of the external cause
CPT/HCPCS: 72125; 70450; 99283; 12011; J2001

== ENCOUNTER 2019-10-27 09:14 | Emergency (ER) | payer MEDICARE ==
[2019-10-27 09:20] VITALS: RESP 18; TEMP 97.8
--- NOTE | 2019-10-27 09:29 | ED ---
Lower Extremity Injury HPI - General Chief Complaint: Extremity Injury, Lower Stated Complaint: RIGHT FOOT SWELLING Time Seen by Provider: 10/27/19 09:21 Source: patient, RN notes reviewed, old records reviewed Mode of arrival: wheelchair Limitations: no limitations - History of Present Illness Initial Comments: This is a 69-year-old female presents emergency Department with chief complaint of right leg, right foot pain. Patient states that her foot was half asleep states that she went to stand up and states that she rolled her foot. Patient has pain in her lower leg, right foot region. She's had no prior fractures no prior surgeries. Patient denies any discoloration. Patient states there is mild swelling to the lateral portion of her foot. She denies any hip pain denies any fall or head trauma from this. - Related Data Home Medications Medication Instructions Recorded Confirmed Aspirin [Adult Low Dose Aspirin EC] 81 mg PO DAILY 06/25/15 05/05/19 Atorvastatin [Lipitor] 20 mg PO HS 06/25/15 05/05/19 Gabapentin [Neurontin] 300 mg PO BID 06/25/15 05/05/19 Multivit-Min/FA/Lycopen/Lutein 1 tab PO DAILY 06/25/15 05/05/19 [Centrum Silver Tablet] Potassium Gluconate 99 mg PO DAILY 06/25/15 05/05/19 Furosemide [Lasix] 10 mg PO DAILY PRN 01/21/16 05/05/19 Zinc Gluconate [Zinc] 50 mg PO DAILY 01/21/16 05/05/19 ALPRAZolam [Xanax] 2 mg PO HS 02/24/17 05/05/19 Meclizine [Antivert] 12.5 mg PO Q6H PRN 02/24/17 05/05/19 Atenolol [Tenormin] 50 mg PO DAILY 05/05/19 05/05/19 Bromfenac Sodium [Prolensa Ophth 1 drop LEFT EYE DIRECTED 05/05/19 05/05/19 Soln] Calcium Carbonate/Vitamin D3 1 tab PO DAILY 05/05/19 05/05/19 [Calcium 500-Vit D3 200 Tablet] DULoxetine HCL [Cymbalta] 60 mg PO DAILY 05/05/19 05/05/19 Difluprednate [Durezol] 1 drop LEFT EYE DIRECTED 05/05/19 05/05/19 Enalapril Maleate [Vasotec] 20 mg PO BID 05/05/19 05/05/19 Loteprednol Etabonate [Alrex] 1 drop BOTH EYES DAILY 05/05/19 05/05/19 Ofloxacin 0.3% Ophth Soln [Ocuflox 1 drops LEFT EYE DIRECTED 05/05/19 05/05/19 Ophth Soln] Tetrahydrozoline HCl/Zinc Sulf 1 drop BOTH EYES DAILY PRN 05/05/19 05/05/19 [Visine Allergy Relief Drop] Allergies Allergy/AdvReac Type Severity Reaction Status Date / Time Penicillins Allergy Swelling Verified 10/27/19 09:20 silver Allergy blister Verified 10/27/19 09:20 sulfamethoxazole Allergy Rash/Hives Verified 10/27/19 09:20 [From Bactrim] trimethoprim [From Bactrim] Allergy Rash/Hives Verified 10/27/19 09:20 adhesive AdvReac pulls skin Verified 10/27/19 09:20 off gold Allergy blister Uncoded 10/27/19 09:20 metal Allergy blister Uncoded 10/27/19 09:20 Review of Systems ROS Statement: Those systems with pertinent positive or pertinent negative responses have been documented in the HPI. ROS Other: All systems not noted in ROS Statement are negative. Past Medical History Past Medical History: Coronary Artery Disease (CAD), Hypertension Additional Past Medical History / Comment(s): neuropathy sciatica History of Any Multi-Drug Resistant Organisms: None Reported Past Surgical History: Heart Catheterization With Stent, Orthopedic Surgery Additional Past Surgical History / Comment(s): shoulder surg, heart stents in 1997 Past Anesthesia/Blood Transfusion Reactions: No Reported Reaction Date of Last Stent Placement:: 1998 Past Psychological History: No Psychological Hx Reported Smoking Status: Former smoker Past Alcohol Use History: Rare Past Drug Use History: None Reported - Past Family History Mother Family Medical History: No Reported History General Exam Limitations: no limitations General appearance: alert, in no apparent distress Head exam: Present: atraumatic, normocephalic, normal inspection Respiratory exam: Present: normal lung sounds bilaterally. Absent: respiratory distress, wheezes, rales, rhonchi, stridor Cardiovascular Exam: Present: regular rate, normal rhythm, normal heart sounds. Absent: systolic murmur, diastolic murmur, rubs, gallop, clicks Extremities exam: Present: other (There is tenderness the right foot no lateral portion of the fifth metatarsal region, pedal pulses dorsal pedis and posterior tibialis are equal bilaterally equal color equal warmth, there is some mild proximal tib-fib tenderness but no obvious deformity no noted swelling or erythema.) Neurological exam: Present: alert, oriented X3, CN II-XII intact, reflexes normal. Absent: motor sensory deficit Skin exam: Present: warm, dry, intact, normal color. Absent: rash Course Vital Signs 10/27/19 09:18 Temperature 97.8 F Pulse Rate 66 Respiratory 18 Rate Blood Pressure 164/129 O2 Sat by Pulse 96 Oximetry Procedures - Orthopedic Splinting/Casting Injury #1 Side: right Lower Extremity Injury Location: short leg, foot Lower Extremity Immobilizer: posterior splint, synthetic pre-padded splint Other Orthopedic Equipment: walker Medical Decision Making - Medical Decision Making 69-year-old female presented for right foot injury, right leg pain. X-ray shows evidence of right fifth metatarsal fracture. She's neurovascularly intact. Patient is advised to be nonweightbearing or limit weightbearing to right foot. She is advised follow-up with orthopedics on Tuesday return for any worsening symptoms. She was splinted and is walking device at home. Disposition Clinical Impression: Nondisplaced fracture of fifth right metatarsal bone Disposition: HOME SELF-CARE Condition: Stable Instructions (If sedation given, give patient instructions): Foot Fracture in Adults (ED) Additional Instructions: Please return to the Emergency Department if symptoms worsen or any other concerns. Is patient prescribed a controlled substance at d/c from ED?: No Referrals: Daniel Bansal DO [Primary Care Provider] - 1-2 days Nabil Mireles MD [STAFF PHYSICIAN] - 1-2 days Time of Disposition: 09:59
--- NOTE | 2019-10-27 09:43 | XR ---
EXAMINATION TYPE: XR foot complete RT , 3 VIEWS DATE OF EXAM ORDERED: 10/27/2019 HISTORY: pain. COMPARISON: None. FINDINGS: There is a mild hallux valgus deformity. There is an undisplaced fracture of the base of t he fifth metatarsal. There are both plantar and calcaneal spurs. There are degenerative changes in th e intertarsal row. IMPRESSION: 1. UNDISPLACED "DAS" FRACTURE OF THE FIFTH METATARSAL. 2. MILD HALLUX VALGUS DEFORMITY. 3. CALCANEAL SPURS. 4. DEGENERATIVE CHANGE CODE A: INITIAL ENCOUNTER FOR CLOSED FRACTURE.
--- NOTE | 2019-10-27 09:45 | XR ---
EXAMINATION TYPE: XR tibia fibula RT , 2 VIEWS DATE OF EXAM ORDERED: 10/27/2019 HISTORY: pain. COMPARISON: None. FINDINGS: . Also reaction along the middle diaphysis of the midshaft of the right fibula. This may b e related to previous trauma. There are degenerative changes within the right knee joint. No acute fr acture or dislocation is seen. IMPRESSION: NO ACUTE OSSEOUS LESION.
[2019-10-27] MEDS ORDERED: ACET/COD 300 MG/30 MG STARTER PACK 6 TAB BTL PO STA (09:59)
[2019-10-27 10:13] VITALS: BP 170/74; PULSE 75
== END 2019-10-27 10:15 | disposition home or self-care (01) ==
LOC: EC 09:14
DX: S92.354A Nondisplaced fracture of fifth metatarsal bone, right foot, initial encounter for closed fracture (principal); I25.10 Atherosclerotic heart disease of native coronary artery without angina pectoris; I10 Essential (primary) hypertension; G62.9 Polyneuropathy, unspecified; Z79.82 Long term (current) use of aspirin; Z79.899 Other long term (current) drug therapy; Z88.0 Allergy status to penicillin; Z88.1 Allergy status to other antibiotic agents; Z88.2 Allergy status to sulfonamides; Z91.048 Other nonmedicinal substance allergy status; Z87.891 Personal history of nicotine dependence; Z95.5 Presence of coronary angioplasty implant and graft; X50.9XXA Other and unspecified overexertion or strenuous movements or postures, initial encounter
CPT/HCPCS: 29515; 99284

== ENCOUNTER → 2020-02-15 | Outpatient (CLI) | payer MEDICARE | END | disposition home or self-care (01) | LOC: LABWHC1 11:27 | PROVIDERS: ATTEND Family Medicine | DX: R05 Cough (principal); R50.9 Fever, unspecified | CPT/HCPCS: U0003; C9803 ==

== ENCOUNTER 2020-04-21 12:55 | Emergency (ER) | payer MEDICARE ==
[2020-04-21 13:14] VITALS: RESP 18; TEMP 97.6
--- NOTE | 2020-04-21 13:21 | ED ---
Female Urogenital HPI - General Chief complaint: Vaginal Bleeding Stated complaint: Vaginal Bleeding Time Seen by Provider: 04/21/20 13:20 Source: patient Mode of arrival: wheelchair Limitations: no limitations - History of Present Illness Initial comments: Patient is 69-year-old female presenting to emergency Department with chief complaint of vaginal bleeding. Patient states the vaginal bleeding started this morning around 7 AM. Patient reports subsequently she developed some lower abdominal cramping. States there is some blood clots in the vagina that she was able to notice on her underwear. Patient believes this is vaginal bleeding rather than hematuria that is noted on the underwear. Patient states she's had a UTI several months ago but that was treated with antibiotics. She denies any vaginal itching, follow small or other discharge. Denies dysuria, increased urgency or frequency. Denies hematuria, hematochezia or melena. States she is sexually active with her . States that she was not sexually active prior to onset of symptoms. Abdominal surgical history includes and appendectomy. - Related Data Home Medications Medication Instructions Recorded Confirmed Aspirin [Adult Low Dose Aspirin EC] 81 mg PO DAILY 06/25/15 05/05/19 Atorvastatin [Lipitor] 20 mg PO HS 06/25/15 05/05/19 Gabapentin [Neurontin] 300 mg PO BID 06/25/15 05/05/19 Multivit-Min/FA/Lycopen/Lutein 1 tab PO DAILY 06/25/15 05/05/19 [Centrum Silver Tablet] Potassium Gluconate 99 mg PO DAILY 06/25/15 05/05/19 Furosemide [Lasix] 10 mg PO DAILY PRN 01/21/16 05/05/19 Zinc Gluconate [Zinc] 50 mg PO DAILY 01/21/16 05/05/19 ALPRAZolam [Xanax] 2 mg PO HS 02/24/17 05/05/19 Meclizine [Antivert] 12.5 mg PO Q6H PRN 02/24/17 05/05/19 Bromfenac Sodium [Prolensa Ophth 1 drop LEFT EYE DIRECTED 05/05/19 05/05/19 Soln] Calcium Carbonate/Vitamin D3 1 tab PO DAILY 05/05/19 05/05/19 [Calcium 500-Vit D3 200 Tablet] DULoxetine HCL [Cymbalta] 60 mg PO DAILY 05/05/19 05/05/19 Difluprednate [Durezol] 1 drop LEFT EYE DIRECTED 05/05/19 05/05/19 Enalapril Maleate [Vasotec] 20 mg PO BID 05/05/19 05/05/19 Loteprednol Etabonate [Alrex] 1 drop BOTH EYES DAILY 05/05/19 05/05/19 Ofloxacin 0.3% Ophth Soln [Ocuflox 1 drops LEFT EYE DIRECTED 05/05/19 05/05/19 Ophth Soln] Tetrahydrozoline HCl/Zinc Sulf 1 drop BOTH EYES DAILY PRN 05/05/19 05/05/19 [Visine Allergy Relief Drop] atenoloL [Tenormin] 50 mg PO DAILY 05/05/19 05/05/19 Allergies Allergy/AdvReac Type Severity Reaction Status Date / Time Penicillins Allergy Swelling Verified 04/21/20 13:15 silver Allergy blister Verified 04/21/20 13:15 sulfamethoxazole Allergy Rash/Hives Verified 04/21/20 13:15 [From Bactrim] trimethoprim [From Bactrim] Allergy Rash/Hives Verified 04/21/20 13:15 adhesive AdvReac pulls skin Verified 04/21/20 13:15 off gold Allergy blister Uncoded 04/21/20 13:15 metal Allergy blister Uncoded 04/21/20 13:15 Review of Systems ROS Statement: Those systems with pertinent positive or pertinent negative responses have been documented in the HPI. ROS Other: All systems not noted in ROS Statement are negative. Past Medical History Past Medical History: Coronary Artery Disease (CAD), Hypertension Additional Past Medical History / Comment(s): neuropathy sciatica History of Any Multi-Drug Resistant Organisms: None Reported Past Surgical History: Heart Catheterization With Stent, Orthopedic Surgery Additional Past Surgical History / Comment(s): shoulder surg, heart stents in 1997 Past Anesthesia/Blood Transfusion Reactions: No Reported Reaction Date of Last Stent Placement:: 1998 Past Psychological History: No Psychological Hx Reported Smoking Status: Former smoker Past Alcohol Use History: Rare Past Drug Use History: None Reported - Past Family History Mother Family Medical History: No Reported History General Exam Limitations: no limitations General appearance: alert, in no apparent distress, obese (Morbidly obese) Head exam: Present: atraumatic, normocephalic, normal inspection Eye exam: Present: normal appearance, PERRL, EOMI Pupils: Present: normal accommodation ENT exam: Present: normal exam, normal oropharynx, mucous membranes moist, TM's normal bilaterally, normal external ear exam Neck exam: Present: normal inspection, full ROM. Absent: tenderness Respiratory exam: Present: normal lung sounds bilaterally. Absent: respiratory distress, wheezes, rales Cardiovascular Exam: Present: regular rate, normal rhythm, normal heart sounds GI/Abdominal exam: Present: soft. Absent: distended, tenderness, guarding External exam: Present: normal external exam. Absent: erythema, swelling Speculum exam: Present: normal speculum exam, vaginal bleeding (Scant amount of vaginal bleeding). Absent: erythema, vaginal discharge Extremities exam: Present: normal inspection, full ROM, normal capillary refill, other (+2 ulnar and radial pulses bilaterally.). Absent: tenderness Back exam: Present: normal inspection, full ROM. Absent: tenderness, CVA tenderness (R), CVA tenderness (L) Neurological exam: Present: alert, oriented X3 Psychiatric exam: Present: normal affect, normal mood Skin exam: Present: warm, dry, intact, normal color Course Vital Signs 04/21/20 04/21/20 04/21/20 13:12 14:30 15:30 Temperature 97.6 F Pulse Rate 63 69 67 Respiratory 18 18 18 Rate Blood Pressure 132/71 193/84 139/68 O2 Sat by Pulse 97 98 98 Oximetry Medical Decision Making - Medical Decision Making Patient is a 69-year-old male presenting to the emergency department with a chief complaint of vaginal bleeding. On physical examination, patient has scant amount of vaginal bleeding. This appears to be residual blood rather than any active bleeding. CBC and CMP are unremarkable. UA is positive for moderate amounts of blood but no red blood cells. Elevated leukocyte esterase. No concern for urinary tract infection at this time. Transvaginal ultrasound along with a transabdominal per recommendation of the vascular technologist was performed. Imaging study was somewhat limiting due to the pain that the patient was not able to tolerate. The imaging study revealed leiomyomatous changes of the uterus. There is a concern for possible endometrial hyperplasia or cancer. Patient was advised to follow-up with a spanish moss picker. Strict return parameters were thoroughly discussed with patient is understanding and agreeable. Case discussed with physician. - Lab Data Result diagrams: 04/21/20 14:08 04/21/20 14:08 Lab Results 04/21/20 04/21/20 04/21/20 Range/Units 14:08 14:08 14:08 WBC 7.6 (3.8-10.6) k/uL RBC 4.69 (3.80-5.40) m/uL Hgb 13.8 (11.4-16.0) gm/dL Hct 42.7 (34.0-46.0) % MCV 91.1 (80.0-100.0) fL MCH 29.3 (25.0-35.0) pg MCHC 32.2 (31.0-37.0) g/dL RDW 12.5 (11.5-15.5) % Plt Count 244 (150-450) k/uL Neutrophils % 60 % Lymphocytes % 29 % Monocytes % 6 % Eosinophils % 3 % Basophils % 1 % Neutrophils # 4.5 (1.3-7.7) k/uL Lymphocytes # 2.2 (1.0-4.8) k/uL Monocytes # 0.4 (0-1.0) k/uL Eosinophils # 0.2 (0-0.7) k/uL Basophils # 0.1 (0-0.2) k/uL PT (9.0-12.0) sec INR (<1.2) APTT (22.0-30.0) sec Sodium 138 (137-145) mmol/L Potassium 4.2 (3.5-5.1) mmol/L Chloride 103 (98-107) mmol/L Carbon Dioxide 30 (22-30) mmol/L Anion Gap 5 mmol/L BUN 16 (7-17) mg/dL Creatinine 0.74 (0.52-1.04) mg/dL Est GFR (CKD-EPI)AfAm >90 (>60 ml/min/1.73 sqM) Est GFR (CKD-EPI)NonAf 84 (>60 ml/min/1.73 sqM) Glucose 105 H (74-99) mg/dL Calcium 9.3 (8.4-10.2) mg/dL Total Bilirubin 0.6 (0.2-1.3) mg/dL AST 34 (14-36) U/L ALT 24 (4-34) U/L Alkaline Phosphatase 94 (38-126) U/L Total Protein 7.0 (6.3-8.2) g/dL Albumin 4.3 (3.5-5.0) g/dL Urine Color Yellow Urine Appearance Clear (Clear) Urine pH 5.0 (5.0-8.0) Ur Specific [place] 1.023 (1.001-1.035) Urine Protein Negative (Negative) Urine Glucose (UA) Negative (Negative) Urine Ketones Negative (Negative) Urine Blood Small H (Negative) Urine Nitrite Negative (Negative) Urine Bilirubin Negative (Negative) Urine Urobilinogen <2.0 (<2.0) mg/dL Ur Leukocyte Esterase Moderate H (Negative) Urine RBC 5 (0-5) /hpf Urine WBC 2 (0-5) /hpf Ur Squamous Epith Cells 1 (0-4) /hpf Urine Bacteria Rare H (None) /hpf Urine Mucus Rare H (None) /hpf 04/21/20 Range/Units 14:08 WBC (3.8-10.6) k/uL RBC (3.80-5.40) m/uL Hgb (11.4-16.0) gm/dL Hct (34.0-46.0) % MCV (80.0-100.0) fL MCH (25.0-35.0) pg MCHC (31.0-37.0) g/dL RDW (11.5-15.5) % Plt Count (150-450) k/uL Neutrophils % % Lymphocytes % % Monocytes % % Eosinophils % % Basophils % % Neutrophils # (1.3-7.7) k/uL Lymphocytes # (1.0-4.8) k/uL Monocytes # (0-1.0) k/uL Eosinophils # (0-0.7) k/uL Basophils # (0-0.2) k/uL PT 10.4 (9.0-12.0) sec INR 1.0 (<1.2) APTT 23.1 (22.0-30.0) sec Sodium (137-145) mmol/L Potassium (3.5-5.1) mmol/L Chloride (98-107) mmol/L Carbon Dioxide (22-30) mmol/L Anion Gap mmol/L BUN (7-17) mg/dL Creatinine (0.52-1.04) mg/dL Est GFR (CKD-EPI)AfAm (>60 ml/min/1.73 sqM) Est GFR (CKD-EPI)NonAf (>60 ml/min/1.73 sqM) Glucose (74-99) mg/dL Calcium (8.4-10.2) mg/dL Total Bilirubin (0.2-1.3) mg/dL AST (14-36) U/L ALT (4-34) U/L Alkaline Phosphatase (38-126) U/L Total Protein (6.3-8.2) g/dL Albumin (3.5-5.0) g/dL Urine Color Urine Appearance (Clear) Urine pH (5.0-8.0) Ur Specific [place] (1.001-1.035) Urine Protein (Negative) Urine Glucose (UA) (Negative) Urine Ketones (Negative) Urine Blood (Negative) Urine Nitrite (Negative) Urine Bilirubin (Negative) Urine Urobilinogen (<2.0) mg/dL Ur Leukocyte Esterase (Negative) Urine RBC (0-5) /hpf Urine WBC (0-5) /hpf Ur Squamous Epith Cells (0-4) /hpf Urine Bacteria (None) /hpf Urine Mucus (None) /hpf Disposition Clinical Impression: Vaginal bleeding Disposition: HOME SELF-CARE Condition: Stable Instructions (If sedation given, give patient instructions): Uterine Artery Embolization for Fibroids (DC) Additional Instructions: Follow up with a spanish moss picker. Return to emergency department if symptoms worsen. Is patient prescribed a controlled substance at d/c from ED?: No Referrals: Vinay Mendez DO [Doctor of Osteopathic Medicine] - 1-2 days Daniel Bansal DO [Primary Care Provider] - 1-2 days Kusum Wyatt DO [Doctor of Osteopathic Medicine] - 1-2 days Amy Flores MD [STAFF PHYSICIAN] - 1-2 days Time of Disposition: 16:00
[2020-04-21 14:33] LABS: Basophils # (A) 0.1 k/uL (0-0.2); Basophils % (A) 1 %; Eosinophils # (A) 0.2 k/uL (0-0.7); Eosinophils % (A) 3 %; HCT 42.7 % (34.0-46.0); HGB 13.8 gm/dL (11.4-16.0); Lymphocytes # (A) 2.2 k/uL (1.0-4.8); Lymphocytes % (A) 29 %; MCH 29.3 pg (25.0-35.0); MCHC 32.2 g/dL (31.0-37.0); MCV 91.1 fL (80.0-100.0); Mean Platelet Volume 7.2; Monocytes # (A) 0.4 k/uL (0-1.0); Monocytes % (A) 6 %; Neutrophils # (A) 4.5 k/uL (1.3-7.7); Neutrophils % (A) 60 %; Platelet Count 244 k/uL (150-450); RBC 4.69 m/uL (3.80-5.40); RDW 12.5 % (11.5-15.5); WBC 7.6 k/uL (3.8-10.6)
[2020-04-21 14:41] LABS: Partial Thromboplastin Time 23.1 sec (22.0-30.0); Prothrombin Time 10.4 sec (9.0-12.0)
[2020-04-21 14:49] LABS: ALT 24 U/L (4-34); AST 34 U/L (14-36); African American GFR (CKD) >90 (>60 ml/min/1.73 sqM); Albumin 4.3 g/dL (3.5-5.0); Alkaline Phosphatase 94 U/L (38-126); Anion Gap 5 mmol/L; Appearance,Urine Clear (Clear); Bacteria,Urine Rare /hpf; Bilirubin,Urine Negative (Negative); Blood Urea Nitrogen 16 mg/dL (7-17); Blood,Urine Small (Negative); Calcium 9.3 mg/dL (8.4-10.2); Carbon Dioxide 30 mmol/L (22-30); Chloride 103 mmol/L (98-107); Color,Urine Yellow; Glucose 105 mg/dL (74-99); Glucose,Urine (UA) Negative (Negative); Ketones,Urine Negative (Negative); Leukocyte Esterase,Urine Moderate (Negative); Mucus,Urine Rare /hpf; Nitrite,Urine Negative (Negative); Non-African American GFR(CKD) 84 (>60 ml/min/1.73 sqM); Potassium 4.2 mmol/L (3.5-5.1); Protein,Urine Negative (Negative); RBC,Urine 5 /hpf (0-5); Sodium 138 mmol/L (137-145); Specific Gravity,Urine 1.023 (1.001-1.035); Squamous Epithelial Cell,Urine 1 /hpf (0-4); Total Bilirubin 0.6 mg/dL (0.2-1.3); Urobilinogen,Urine <2.0 mg/dL (<2.0); WBC,Urine 2 /hpf (0-5)
--- NOTE | 2020-04-21 15:34 | US ---
EXAMINATION TYPE: US transvaginal DATE OF EXAM: 04/21/2020 COMPARISON: NONE CLINICAL HISTORY: vaginal bleeding, concern for endometrial abdorman. abnormal vaginal bleeding TECHNIQUE: Transvaginal (TV). Transabdominal sonographic images of the pelvis were acquired. Trans vaginal sonographic images were medically necessary to better assess the following anatomy: Date of LMP: Post menopausal EXAM MEASUREMENTS: Uterus: 10.0 x 8.0 x 5.4 cm cm Endometrial Stripe: 0.4 cm Right Ovary: Not seen cm Left Ovary: Not seen cm 1. Uterus: Anteverted Partially Obscured by overlying bowel gas. Uterus appears enlarged and heter ogeneous. ? myomas. 2. Endometrium: wnl 3. Right Ovary: Not seen 4. Left Ovary: Not seen Spectral, color and waveform doppler imaging shows good arterial and venous flow within the ovaries ; there is no evidence for ovarian torsion. 5. Bilateral Adnexa: Obscured by overlying bowel gas, No masses seen. 6. Posterior cul-de-sac: Obscured by overlying bowel gas, No masses seen. Patient did not tolerate exam well due to pelvic discomfort and pain. She could not elevate hips to a llow full angling of transducer. IMPRESSION: 1. Leiomyomatous change of the uterus.
[2020-04-21 15:35] VITALS: BP 139/68; PULSE 67
== END 2020-04-21 16:31 | disposition home or self-care (01) ==
LOC: EC 12:55
DX: N93.9 Abnormal uterine and vaginal bleeding, unspecified (principal); R10.30 Lower abdominal pain, unspecified; I10 Essential (primary) hypertension; E66.01 Morbid (severe) obesity due to excess calories; I25.10 Atherosclerotic heart disease of native coronary artery without angina pectoris; Z79.899 Other long term (current) drug therapy; Z88.0 Allergy status to penicillin; Z88.2 Allergy status to sulfonamides; Z91.048 Other nonmedicinal substance allergy status; Z87.891 Personal history of nicotine dependence; Z95.5 Presence of coronary angioplasty implant and graft; Z68.41 Body mass index [BMI] 40.0-44.9, adult
CPT/HCPCS: 36415; 76830; 80053; 81001; 85025; 85610; 85730; 87086; 99284

== ENCOUNTER → 2020-05-07 | Outpatient (CLI) | payer MEDICARE ==
[2020-05-07 15:44] VITALS: BP 139/80; PULSE 121; RESP 20; TEMP 98; BMI 53.2
--- NOTE | 2020-05-07 16:13 | P.HPBAR ---
Bariatric H&P - History & Physicial H&P Date: 05/07/20 History & Physicial: Visit/CC: initial visit Patient initial contact: Initial weight: Initial weight in pounds: Height: 5 ft 2.5 in Initial BMI: Last weight: Current weight: 134.263 kg Current weight in pounds: 296.00 Current BMI: 53.2 [place] body weight (based on NIH guidelines): 51.029 kg Excess body weight loss: The patient is a 69 year-old F who presents for Bariatric Assessment. She comes in with 100+ pounds in 2 years for weight gain. She has tried exercise and food adjustment. She has knee replacement. She wants to get down to at least 177 pounds. No moderate GERD at this time. She has heart condition. She is l ooking into the sleeve gastrectomy. She had bleeding from the vagina. She was in the ER. She has never had a colonoscopy. Suprep. No stomach or esophageal cancer. Grandfather had stomach cancer. Still hasd gallbladder. She has a scar along the lower abdomen. Recommend possible check of gallbladder. Her family/son had gallbladder problems. She has not seen a data specialist. Past Medical History Past Medical History: Coronary Artery Disease (CAD), Hypertension Additional Past Medical History / Comment(s): neuropathy sciatica History of Any Multi-Drug Resistant Organisms: None Reported Past Surgical History: Heart Catheterization With Stent, Orthopedic Surgery Additional Past Surgical History / Comment(s): shoulder surg, heart stents in 1997 Past Anesthesia/Blood Transfusion Reactions: No Reported Reaction Date of Last Stent Placement:: 1998 Past Psychological History: No Psychological Hx Reported Smoking Status: Former smoker Past Alcohol Use History: Rare Past Drug Use History: None Reported - Past Family History Mother Family Medical History: No Reported History Surgical - Exam Vital Signs Temp Pulse Resp BP 98 F 121 H 20 139/80 05/07/20 15:13 05/07/20 15:13 05/07/20 15:13 05/07/20 15:13 Bariatric Checklist Checklist: Plan: Checklist: EGD: 1. Hiatal hernia: 2. H. Pylori: HgbA1c: Vitamin D: Smoking: Former smoker Primary care physician referral: Dr Bansal Psychiatry clearance: Cardiology clearance: Sleep study: Diet journal: VTE risk score: VTE risk level: Rehab needs at discharge:
== END | disposition home or self-care (01) ==
LOC: BARWHC3 14:46
PROVIDERS: ATTEND Surgery Plastic and Reconstructive Surgery
DX: E66.01 Morbid (severe) obesity due to excess calories (principal); Z68.43 Body mass index [BMI] 50.0-59.9, adult; Z87.891 Personal history of nicotine dependence
CPT/HCPCS: 99211

== ENCOUNTER → 2020-05-08 | Outpatient (CLI) | payer MEDICARE ==
[2020-05-08 15:53] LABS: HCT 43.1 % (34.0-46.0); HGB 14.2 gm/dL (11.4-16.0); MCH 30.9 pg (25.0-35.0); MCHC 32.8 g/dL (31.0-37.0); MCV 94.3 fL (80.0-100.0); Mean Platelet Volume 7.3; Platelet Count 243 k/uL (150-450); RBC 4.57 m/uL (3.80-5.40); RDW 12.3 % (11.5-15.5); WBC 6.4 k/uL (3.8-10.6)
[2020-05-08 23:18] LABS: Prothrombin Time 10.7 sec (9.9-11.9)
[2020-05-09 01:05] LABS: % Iron Saturation 23.21 (12.00-45.00); African American GFR (CKD) 75.1 (60.0-200.0); Albumin 4.5 g/dL (3.80-4.90); Albumin/Globulin Ratio 1.96 (1.60-3.17); Anion Gap 10.4 mmol/L (4.00-12.00); BUN/Creat Ratio 15.56 Ratio (12.00-20.00); Calcium 9.4 mg/dL (8.7-10.3); Carbon Dioxide 29.6 mmol/L (21.6-31.8); Chol/HDL Ratio 2.4; Globulin 2.3 g/dL (1.6-3.3); LDL Cholesterol,Calculated 37.8 mg/dL (0.0-131.0); Magnesium 1.9 mg/dL (1.5-2.4); Non-African American GFR(CKD) 64.8 (60.0-200.0); Phosphorus 3.4 mg/dL (2.4-5.1); Potassium 3.9 mmol/L (3.5-5.5); Total Bilirubin 0.7 mg/dL (0.3-1.2); Total Protein 6.8 g/dL (6.2-8.2); VLDL Calculation 35.2 mg/dL (5.00-40.00)
[2020-05-09 01:13] LABS: Ferritin 82.3 ng/mL (10.0-291.0)
[2020-05-09 12:50] LABS: Zinc, Serum 110 ug/dL (60-130)
[2020-05-09 13:11] LABS: Vit B1(Thiamine) 75 ug/L (38-122)
[2020-05-11 01:21] LABS: Selenium 126 mcg/L (63-160)
[2020-05-12 08:07] LABS: Vitamin A 34 ug/dL (38-106)
== END | disposition home or self-care (01) ==
LOC: LABWHC1 14:57
PROVIDERS: ATTEND Surgery Plastic and Reconstructive Surgery
DX: D50.8 Other iron deficiency anemias (principal); K90.89 Other intestinal malabsorption; E55.9 Vitamin D deficiency, unspecified; N19 Unspecified kidney failure; K50.90 Crohn's disease, unspecified, without complications; K74.1 Hepatic sclerosis; E89.1 Postprocedural hypoinsulinemia; E66.01 Morbid (severe) obesity due to excess calories
CPT/HCPCS: 36415; 80053; 80061; 82306; 82525; 82607; 82728; 82746; 83540; 83550; 83735; 83970; 84100; 84134; 84255; 84425; 84443; 84590; 84630; 85027; 85610; 85730; 93005

== ENCOUNTER → 2020-05-26 | Outpatient (CLI) | payer MEDICARE ==
[2020-05-26 13:15] LABS: Basophils # (A) 0.1 k/uL (0-0.2); Basophils % (A) 1 %; Eosinophils # (A) 0.2 k/uL (0-0.7); Eosinophils % (A) 2 %; HCT 43.2 % (34.0-46.0); Lymphocytes # (A) 2.2 k/uL (1.0-4.8); Lymphocytes % (A) 29 %; MCHC 32.3 g/dL (31.0-37.0); MCV 92.9 fL (80.0-100.0); Mean Platelet Volume 7.5; Monocytes # (A) 0.5 k/uL (0-1.0); Monocytes % (A) 7 %; Neutrophils # (A) 4.6 k/uL (1.3-7.7); Neutrophils % (A) 61 %; Platelet Count 229 k/uL (150-450); RBC 4.65 m/uL (3.80-5.40); RDW 12.1 % (11.5-15.5); WBC 7.7 k/uL (3.8-10.6)
== END | disposition home or self-care (01) ==
LOC: LABPAT 10:26
PROVIDERS: ATTEND Obstetrics & Gynecology
DX: Z01.818 Encounter for other preprocedural examination (principal); N95.0 Postmenopausal bleeding
CPT/HCPCS: 36415; 85025

== ENCOUNTER 2020-06-16 06:09 | Day surgery (SDC) | payer MEDICARE ==
[2020-06-11 14:07] VITALS: BMI 48.0
[~2020-06-16 06:09] MED LIST: LACTATED RINGERS 1,000 ML IV SCH; Pre Op ABX Message 1 EACH MISC MISCELLANE ONE
[2020-06-16] MEDS ORDERED: LIDOCAINE 1% (10MG/ML) FOR IV START INTRADERMA ONE (06:44)
[2020-06-16] MEDS ORDERED: ONDANSETRON 4 MG/2 ML VIAL ONE (06:51)
[2020-06-16] MEDS ORDERED: ONDANSETRON 4 MG/2 ML VIAL IVP ONE (06:52)
[2020-06-16] MEDS ORDERED: DEXAMETHASONE SOD PHOSPHATE 4 MG/ML 1 ML VIAL IVP ONE (06:53)
[2020-06-16] MEDS ORDERED: fentaNYL (PF) 50 MCG/ML 2 ML AMP ONE (07:22)
[2020-06-16] MEDS ORDERED: PROPOFOL 10 MG/ML 20 ML VIAL IV ONE (07:22)
[2020-06-16] MEDS ORDERED: SUCCINYLCHOLINE CHLORIDE 100 MG/5 ML SYR IV ONE (07:22)
[2020-06-16] MEDS ORDERED: LIDOCAINE 1% INJ 10MG/ML (20 ML MDV) ONE (07:22)
[2020-06-16] MEDS ORDERED: SILVER NITRATE APPLICATOR 1 EACH STICK..EA. TOPICAL ONE (07:56)
--- NOTE | 2020-06-16 08:07 | P.OP ---
Date of Procedure: 06/16/20 Preoperative Diagnosis: Post menopausal bleeding, morbid obesity, atrophic cervix Postoperative Diagnosis: Same, grade 3 cystocele, grade 2 rectocele, essentially negative appearing uterine cavity. Procedure(s) Performed: Hysteroscopy, fractional D&C Anesthesia: ILA Surgeon: Amy Flores Estimated Blood Loss (ml): 10 IV fluids (ml): 300 Urine output (ml): 200 Pathology: other (Cervical and uterine curettings) Condition: stable Disposition: PACU Operative Findings: Essentially negative appearing uterine cavity, no polyps tumors fibroids or defects. Grade 3 cystocele, grade 2 rectocele noted. Description of Procedure: Patient is brought to the operating suite where a general anesthetic is administered without difficulty. She's placed in the dorsal lithotomy position. The cervix, vagina, perineal bodies are all prepped and draped in usual sterile fashion. The appropriate timeout is performed to assure proper patient and procedural identification. Restrained for approximately 200 mL of clear yellow urine using a red Hui catheter. Speculum is then placed into the vagina. Anterior lip of the cervix is grasped with a double-tooth tenaculum. Kevorkian curette is used and cervical curettings are obtained, they are scant. Uterus then sounds to a depth of 8.5 cm in the anteverted position. The cervix is gently and systematically dilated using Hanks dilators. The hysteroscope is placed in the uterus is distended using sterile saline. Cavity is noted to be completely negative, no polyps, no unusual appearing tissue, no fibroids, no defects. Hysteroscope was removed. A small sharp curette is then used and all 4 quadrants and sampling of the cavity is performed. Again, a scant amount of tissue is obtained. When this is performed the hysteroscope is reintroduced and the cavity appears negative. All sponge needle and enhancement counts are correct. Perineal body is clean and dry. Peripads applied. Patient is brought back to recovery room in very good condition with stable vital signs including a blood pressure of 139/75, pulse 75, 100% O2 saturation. Total estimated blood loss 10 mL's. Patient will follow-up with me in the office in 2 weeks.
[2020-06-16 08:13] VITALS: TEMP 97.7
[2020-06-16 08:54] VITALS: RESP 18
[2020-06-16 09:11] VITALS: BP 149/79; PULSE 74
== END 2020-06-16 10:00 | disposition home or self-care (01) ==
LOC: OR 06:09
PROVIDERS: ATTEND Obstetrics & Gynecology
DX: N95.0 Postmenopausal bleeding (principal); N95.8 Other specified menopausal and perimenopausal disorders; N81.10 Cystocele, unspecified; N81.6 Rectocele; E66.01 Morbid (severe) obesity due to excess calories; R94.31 Abnormal electrocardiogram [ECG] [EKG]; I10 Essential (primary) hypertension; I25.10 Atherosclerotic heart disease of native coronary artery without angina pectoris; M48.00 Spinal stenosis, site unspecified; F41.9 Anxiety disorder, unspecified; Z91.09 Other allergy status, other than to drugs and biological substances; Z88.0 Allergy status to penicillin; Z88.2 Allergy status to sulfonamides; Z95.5 Presence of coronary angioplasty implant and graft; Z79.82 Long term (current) use of aspirin; Z79.899 Other long term (current) drug therapy; Z79.1 Long term (current) use of non-steroidal anti-inflammatories (NSAID); Z79.52 Long term (current) use of systemic steroids; Z87.891 Personal history of nicotine dependence; Z68.35 Body mass index [BMI] 35.0-35.9, adult; Z97.2 Presence of dental prosthetic device (complete) (partial); Z96.652 Presence of left artificial knee joint; Z98.890 Other specified postprocedural states; Z87.2 Personal history of diseases of the skin and subcutaneous tissue
CPT/HCPCS: 88305; 58558; J1100; J2405; J2001; J3010; J0330; J2704

== ENCOUNTER → 2020-08-26 | Outpatient (CLI) | payer MEDICARE ==
--- NOTE | 2020-08-29 10:49 | MM ---
Reason for exam: screening (asymptomatic). Last mammogram was performed 1 year and 4 months ago. History: Patient is postmenopausal. Physical Findings: A clinical breast exam by your physician is recommended on an annual basis and results should be correlated with mammographic findings. MG 3D Screening Mammo W/Cad Bilateral CC and MLO view(s) were taken. XCCM view(s) were taken of the left breast. Prior study comparison: April 13, 2019, bilateral MG 3d screening mammo w/cad. February 21, 2018, bilateral MG screening mammo w CAD. There are scattered fibroglandular densities. Benign oil cyst calcifications. No significant changes when compared with prior studies. ASSESSMENT: Negative, BI-RAD 1 RECOMMENDATION: Routine screening mammogram of both breasts in 1 year.
== END | disposition home or self-care (01) ==
LOC: RADMAMWWP 14:32
PROVIDERS: ATTEND Obstetrics & Gynecology
DX: Z12.31 Encounter for screening mammogram for malignant neoplasm of breast (principal)
CPT/HCPCS: 77063; 77067

== ENCOUNTER → 2020-11-04 | Outpatient (CLI) | payer MEDICARE ==
--- NOTE | 2020-11-04 17:21 | XR ---
EXAMINATION TYPE: XR knee complete bilateral DATE OF EXAM: 11/04/2020 COMPARISON: Left knee 07/25/2018 HISTORY: 70-year-old female with bilateral knee pain. M25.561, M25.562 TECHNIQUE: 3 views each side FINDINGS: Left: Slight progression in the heterotopic ossification along the anteromedial aspect of the left knee ky suring up to 2.8 x 2.6 cm. Left total knee arthroplasty is demonstrated. Both distal femoral and prox imal tibial components of prosthesis appear well seated. Underlying joint effusion is difficult to ex clude. Right: Moderate to severe narrowing of cartilage and joint space in the medial compartment. An 8 mm loose miladys dy is present in the medial gutter. Tricompartmental degenerative spurring is present. Joint space na rrowing also noted in the patellofemoral compartment. No acute fracture, subluxation, or dislocation. IMPRESSION: 1. Left: Unable to exclude underlying joint effusion. Some heterotopic ossification redemonstrated al vicenta the anteromedial soft tissues. Otherwise, uncomplicated appearance of the left total knee arthrop lasty. 2. Right: Moderate to severe medial and at least moderate patellofemoral compartment osteoarthrosis. No acute osseous abnormality seen.
== END | disposition home or self-care (01) ==
LOC: RADXRMAIN 13:52
PROVIDERS: ATTEND Family Medicine
DX: M17.11 Unilateral primary osteoarthritis, right knee (principal); M25.562 Pain in left knee; Z96.652 Presence of left artificial knee joint

== ENCOUNTER → 2020-11-28 | Outpatient (CLI) | payer MEDICARE | END | disposition home or self-care (01) | LOC: LABWHC1 14:00 | PROVIDERS: ATTEND Family Medicine | DX: Z01.812 Encounter for preprocedural laboratory examination (principal) | CPT/HCPCS: 87070 ==

== ENCOUNTER 2020-12-30 06:05 | Day surgery (SDC) | payer MEDICARE ==
[2020-12-26 10:39] VITALS: BMI 34.3
--- NOTE | 2020-12-29 09:34 | HP ---
HISTORY AND PHYSICAL CHIEF COMPLAINT: Right knee pain. HISTORY OF PRESENT ILLNESS: The patient is a 70-year-old retired female who presents with progressive right knee pain for the past 5 years. It has worsened recently. She is having pain with any weightbearing activities. She notes multiple falls recently. She has been using a walker. She has tried multiple medications in addition to injections with only partial temporary relief. She notes significant limitation. She has also worked on a weight loss program. PAST MEDICAL HISTORY: Significant for angina/coronary artery disease, arthritis, and hypertension. PAST SURGICAL HISTORY: Significant for bilateral shoulder surgery, left knee surgery, section, and cardiac stent placement. CURRENT MEDICATIONS: Aspirin, atenolol, Cymbalta, gabapentin, and Lipitor. ALLERGIES: She has allergies to PENICILLIN and SULFA. FAMILY HISTORY: Significant for heart disease. SOCIAL HISTORY: Significant for previous tobacco use. REVIEW OF SYSTEMS: Sixteen-point review of systems otherwise reviewed and is noncontributory. PHYSICAL EXAMINATION: On examination, the patient is approximately 5 foot 4, 248 pounds of endomorphic habitus. HEENT exam is nonfocal. Neck is supple. She has painless passive motion of the right hip. Straight leg raise is negative. Active motion right knee -12 to 100 degrees of flexion. She has a mild effusion. She is tender about the medial joint line. Collaterals are stable, Fidelina is negative, Omar's is equivocal. She has genu varum alignment. She does have an antalgic gait pattern. Weightbearing notch, lateral and Merchant views of the right knee obtained in the office show severe medial and patellofemoral compartment osteoarthrosis with bone-on- bone changes along with subchondral sclerosis and medial compartment spurring. IMPRESSION: 1. Right knee severe tricompartmental osteoarthrosis. 2. Obesity. 3. Coronary artery disease. RECOMMENDATIONS: I talked to the patient at length regarding her condition and treatment options. At this point, she is quite limited because of pain related to her osteoarthrosis despite previous attempted conservative measures. After thorough discussion, she opts to proceed with surgery. We will plan to proceed with right total knee arthroplasty. Risks and benefits were discussed at length in layman's terms. We will institute DVT prophylaxis postoperatively. MMODL / IJN: [id number] /
[~2020-12-30 06:05] MED LIST changes: +ACETAMINOPHEN TAB 500 MG TAB PO PRN; +DEXAMETHASONE SOD PHOSPHATE 4 MG/ML 1 ML VIAL IV ONE; -LACTATED RINGERS 1,000 ML IV SCH; +LIDOCAINE 1% (10MG/ML) FOR IV START INTRADERMA PRN; +MELOXICAM 7.5 MG TAB PO PRN; +ONDANSETRON 4 MG/2 ML VIAL IVP ONE; -Pre Op ABX Message 1 EACH MISC MISCELLANE ONE; +ROPIVACAINE/EPI/CLONIDINE/KET 50 ML SYRINGE MISCELLANE PRN; +TRANEXAMIC ACID 1,000 MG in SODIUM CHLORIDE 0.9% 100 ML IVPB PRN
[2020-12-30] MEDS: LACTATED RINGERS 1,000 ML IV SCH ×2 (07:00→21:38)
[2020-12-30] MEDS ORDERED: fentaNYL (PF) 50 MCG/ML 2 ML AMP IV ONE (07:16)
[2020-12-30] MEDS ORDERED: MIDAZOLAM 2 MG/2 ML VIAL IV ONE (07:16)
[2020-12-30] MEDS ORDERED: ceFAZolin 1,000 MG VIAL IVPB ONE (07:52)
[2020-12-30] MEDS ORDERED: ceFAZolin 3,000 MG in SODIUM CHLORIDE 0.9% IRRIGATIO 3,000 ML IRRIGATION ONE (08:26)
--- NOTE | 2020-12-30 08:30 | P.ANPRN ---
Procedure Note - Anesthesia - Nerve Block Performed Right Adductor Canal Infusion Time Out Performed: Yes Date of Procedure: 12/30/20 Procedure Start Time: 07:16 Procedure Stop Time: 07:36 Location of Patient: PreOp Indication: Acute Post-Operative Pain, Requested by Surgeon Specifically requested for management of pain by : Amado Shaikh Sedation Type: Sedate with meaningful contact maintained Preparation: Sterile Prep, Sterile Dressing Position: Supine Catheter Depth at Skin (cm): 8 Catheter: Indwelling Needle Types: Pajunk Needle Gauge: 20 Ultrasound used to visualize needle placement: Yes Ultrasound used to observe medication spread: Yes Injectate: 0.5% Ropivacaine (see comment for volume) Blood Aspirated: No Pain Paresthesia on Injection Noted: No Resistance on Injection: Normal Image Stored and Saved: Yes Events: Uneventful and Well Tolerated (0.5% Ropivacaine 20cc)
[2020-12-30] MEDS ORDERED: ONDANSETRON 4 MG/2 ML VIAL IVP PRN (09:34)
[2020-12-30] MEDS ORDERED: MAGNESIUM HYDROXIDE 2,400 MG/10 ML CUP PO PRN (09:34)
[2020-12-30] MEDS ORDERED: HYDROcodone/APAP 5-325MG 1 EACH TAB PO PRN (09:34)
[2020-12-30] MEDS ORDERED: NALOXONE 0.4 MG/ML 1 ML VIAL IV PRN (09:34)
[2020-12-30] MEDS ORDERED: ACETAMINOPHEN TAB 325 MG TAB PO PRN (09:34)
--- NOTE | 2020-12-30 09:58 | P.OP ---
Date of Procedure: 12/30/20 Preoperative Diagnosis: Right knee severe tricompartmental osteoarthrosis Postoperative Diagnosis: Same Procedure(s) Performed: Right total knee arthroplastycementedposterior stabilized Implants: Depuy Attune size 4 narrow cemented femoral component, size 3 cemented tibial component with a 50 mm stem extension, 9 mm articular surface, 32 mm cemented patellar component. This is a posterior stabilized implant. Anesthesia: GETA, regional, local Surgeon: Amado Shaikh Veneer Jointer Returner #1: Andrzej Lucas Estimated Blood Loss (ml): 50 Pathology: other (Bone fragments) Condition: stable Disposition: PACU Indications for Procedure: Patient is a 70-year-old female presents with progressive right knee pain secondary osteoarthrosis despite conservative measures. She has also worked on weight loss. A discussion of the risks and benefits of continued conservative measures versus operative intervention was made with patient she opted to proceed with surgery. Operative risks to include infection, neurovascular injury, development blood clots, possible component loosening, possible component failure need for subsequent procedures was discussed. Informed consent was obtained. Operative Findings: As below Description of Procedure: The patient was brought to the operating room, and after induction of spinal anesthesia the right lower extremity was prepped and draped in a normal fashion. The tourniquet was inflated to 270 mm marker. A longitudinal incision extending 3 finger breaths above the superior pole of patella extending to the medial aspect the tibial tubercle was then made. The skin and subcutaneous tissues were divided sharply. Electrocautery was used for hemostasis. A medial parapatellar arthrotomy was performed. The medial soft tissues to include the superficial and deep portions of the medial collateral ligament were elevated subperiosteally. The patella was everted. A portion of the retropatellar fat pad was excised sharply. The anterior cruciate ligament was sacrificed. Blunt retractors were placed. A starting hole was made in the distal femur 1 cm anterior to the posterior cruciate ligament origin. An intramedullary femoral guide was then inserted planning on 5 valgus distal cut with 9 mm distal resection. The cutting block was pinned in place. The distal cut was then made. The posterior referencing sizing guide was utilized. I felt size 4 narrow was most appropriate. 3 of external rotation was built into the system and verified off the trans-epicondylar axis and the posterior condyles. The cutting block was pinned in place. The anterior, posterior, and chamfer cuts then made. Bone fragments were removed. The intercondylar guide was placed and the notch cut was made with a sagittal saw. The bone block was removed in one fragment. The trial component was then placed. There is good anterior to posterior and medial to lateral fit. The distal peg holes were drilled. The trial component was removed. Attention was then paid towards preparing the proximal femur. An extra medullary guide was utilized in line with the tibial shaft and second metatarsal distally. I planned on 2 mm resection from the medial compartment. The cutting block was pinned in place. The proximal tibial cut was then made. The bone was removed in one fragment. The remnants of the medial and lateral menisci were excised at the capsular junction with electrocautery. The tibia sized most appropriately at size 3. The trial femoral and tibial components were placed along with a 9 mm articular surface. I was able to obtain full flexion and extension with internal and external rotation. After several flexion and extension cycles, the tibial rotation was marked with electrocautery line with the medial one third of the tibial tubercle. Attention was then paid towards preparing the patella. A patella reamer was utilized taking stem to 14 mm of bone stock. A good flush cut was made. The patella sized most appropriately 32 mm. The peg holes were drilled. The trial components placed. I had good patellofemoral tracking with no hands technique. The trial components were then removed. The tibia was prepared in the appropriate rotation with appropriate drill and keel punch. I planned on a 50 mm tibial stem extension. The posterior osteophytes were removed with a curved osteotome. The flexion and extension gaps were checked and felt to be symmetric at 9 mm. A trial components were then removed. The posterior soft tissues were injected with ropivacaine. The bony surfaces were prepared with p ulsatile lavage and dried. The tibial component was then cemented place was fully seated. Excess cement was removed. The femoral component cemented place and was fully seated. Excess cement was removed. The trial 9 mm articular surface was placed and the knee was put in full extension. The patella component was cemented place. After the cement had sufficiently hardened, the knee was again taken through a range of motion. Again I was able to obtain full flexion and extension with varus and valgus stress. The trial 9 mm articular surface was removed and the final one inserted. This was fully seated. Care was taken to avoid any soft tissue interposition. Pulsatile lavage was again utilized. The medial parapatellar arthrotomy was closed with #2 Ethibond suture. The tourniquet was deflated with approximately 60 minutes total tourniquet time. Final hemostasis was obtained with the cautery. There was minimal bleeding therefore a deep drain was not placed. The subcutaneous ti ssues were reapproximated with interrupted 2-0 Vicryl sutures. The skin was reapproximated with 3-0 subcuticular strata fix suture. Skin tape and adhesive was applied. A sterile dressing was applied. The patient was awoken from sedation and transferred to recovery room in good condition. Blood loss was estimated at 50 mL. No complications were incurred. Sponge and needle counts were correct at the end of the case. Zan DAMON assisted during the major components of this case to include exposure, bone resection, implantation, and closure.
[2020-12-30] MEDS ORDERED: ROPIVACAINE 0.2%-NS ON-Q PUMP 1,090 MG, EMPTY PAIN BALL 1 EACH MISCELLANE PRN (10:22)
[2020-12-30] MEDS: HYDROmorphone 0.5 MG/0.5 ML SYRINGE IVP PRN ×2 (10:27→10:35)
--- NOTE | 2020-12-30 10:31 | XR ---
EXAMINATION TYPE: XR knee limited RT DATE OF EXAM: 12/30/2020 CLINICAL HISTORY: Right knee pain and arthritis status post total knee replacement. TECHNIQUE: Portable AP and crosstable lateral views of the right knee are obtained immediately posto peratively. COMPARISON: None FINDINGS: Metallic hardware from total right knee arthroplasty is seen and appears satisfactory in a lignment and position. There is evidence of recent surgery with diffuse subcutaneous gas , vertical skin gwendolyn, and joint effusion with gas noted. IMPRESSION: METALLIC HARDWARE FROM TOTAL right KNEE ARTHROPLASTY IS SATISFACTORY IN ALIGNMENT.
[2020-12-30] MEDS ORDERED: LABETALOL SYRINGE 5 MG/ML IVP ONE (11:08)
[2020-12-30] MEDS ORDERED: LACTATED RINGERS 1,000 ML IV ONE ×2 (11:15)
[2020-12-30] MEDS ORDERED: FUROSEMIDE 10 MG TAB PO PRN (14:07)
[2020-12-30] MEDS ORDERED: ALBUTEROL NEBULIZED 2.5 MG/3 ML INHALATION PRN (14:07)
[2020-12-30] MEDS: HYDROcodone/APAP 5-325MG 1 EACH TAB PO PRN ×2 (15:58→21:29)
[2020-12-30] MEDS: GABAPENTIN 300 MG CAP PO SCH ×2 (15:58→21:29)
[2020-12-30] MEDS: ceFAZolin 3 GM in SODIUM CHLORIDE 0.9% 100 ML IVPB SCH (15:58)
[2020-12-30] MEDS ORDERED: HYDROmorphone 0.5 MG/0.5 ML SYRINGE IVP PRN (17:20)
[2020-12-30] MEDS ORDERED: HYDROmorphone 0.2 MG/1 ML SYRINGE IVP PRN (19:10)
[2020-12-30] MEDS ORDERED: SENNOSIDES-DOCUSATE SODIUM 1 EACH TAB PO SCH (21:00)
[2020-12-30] MEDS ORDERED: ALPRAZolam 1 MG TAB PO SCH (21:00)
[2020-12-30] MEDS: lisinopriL 20 MG TAB PO SCH (21:29)
[2020-12-31] MEDS: ceFAZolin 3 GM in SODIUM CHLORIDE 0.9% 100 ML IVPB SCH (00:08)
[2020-12-31 03:13] VITALS: RESP 16; TEMP 97.7
[2020-12-31] MEDS: HYDROcodone/APAP 5-325MG 1 EACH TAB PO PRN (03:56)
[2020-12-31 08:01] VITALS: BP 148/69; PULSE 71
[2020-12-31] MEDS: lisinopriL 20 MG TAB PO SCH (08:10)
[2020-12-31] MEDS: GABAPENTIN 300 MG CAP PO SCH (08:11)
[2020-12-31] MEDS ORDERED: RIVAROXABAN 10 MG TAB PO SCH (09:00)
[2020-12-31] MEDS ORDERED: atenoloL 50 MG TAB PO SCH (09:00)
[2020-12-31] MEDS ORDERED: DULoxetine HCL 60 MG CAPSULE.DR PO SCH (09:00)
[2020-12-31] MEDS ORDERED: POTASSIUM CHLORIDE ER 20 MEQ TAB.ER PO SCH (09:00)
[2020-12-31] MEDS ORDERED: CHOLECALCIFEROL 25 MCG (1000 IU) TABLET PO SCH (09:00)
[2020-12-31] MEDS ORDERED: MAGNESIUM OXIDE 400 MG TAB PO SCH (09:00)
[2020-12-31] MEDS ORDERED: ATORVASTATIN 10 MG TAB PO SCH (09:00)
--- NOTE | 2020-12-31 09:54 | P.PN ---
Subjective Progress Note Date: 12/31/20 Principal diagnosis: Status post right total knee arthroplasty Patient tolerated bedside, she is resting comfortably. Her pain is well- controlled. She's ambulate well with therapy. She has no urinary difficulties at this time. She denies any headaches, lightheadedness, chest pain or shortness of breath Objective - Vital Signs Vital signs: Vital Signs Temp 97.7 F 12/31/20 07:57 Pulse 71 12/31/20 07:57 Resp 16 12/31/20 07:57 BP 148/69 12/31/20 07:57 Pulse Ox 94 L 12/31/20 07:57 Intake & Output 12/30/20 12/31/20 12/31/20 18:59 06:59 18:59 Intake Total 1201 Output Total 50 Balance 1151 Weight 135.9 kg Intake: IV 1201 Output: Estimated Blood Loss 50 Other: # Voids 1 4 - Exam Right lower extremity: Incision is clean, dry, and intact. The gwendolyn are in good condition. There is minimal soft tissue swelling and ecchymosis surrounding the medial and lateral aspects of the incision. Calf is soft, no tenderness with palpation. Plantar flexion, dorsiflexion, EHL, FHL are intact. Sensory exam to light touch throughout the extremity is intact, dorsal pedis pulses 2+. Assessment and Plan Assessment: Postoperative day 1 status post right total knee arthroplasty Plan: Pain control, plan for discharge home on oral medication DVT prophylaxis, Eliquis 2.5 mg twice a day for 2 weeks Wound care instructions were discussed On-Q pain ball instructions are discussed Encourage incentive spirometer Home physical therapy and nursing after discharge Medical recommendations Discharge planning: Stable for discharge home today Time with Patient: Less than 30
--- NOTE | 2020-12-31 09:59 | P.DS ---
Providers Date of admission: 12/30/2020 Expected date of discharge: 12/31/20 Attending physician: Amado Shaikh Consults: 12/30/20 16:41 Consult Physician Routine Consulting Provider: Camden De Jesus Reason/Comments: medical management Do you want consulting provider notified?: Already Contacted Primary care physician: Daniel [facility] Course: Date of admission: 12/30/2020 Date of discharge: 12/31/2020 Admission diagnosis: Status post right total knee arthroplasty Discharge diagnosis: Same Attending physician: Dr. Shaikh Surgical procedures: Right total knee arthroplasty Brief history: Patient is a 70-year-old female with a history of progressive primary right knee osteoarthritis. At this point patient has failed conservative treatment measures and has opted to proceed with a elective right total knee arthroplasty. Hospital course: Details of patient's surgery can be found in operative report. Patient tolerated the procedure well and was subsequently transported to orthopedic floor. Patient's orthopeidc and medical care was provided daily. Patient had daily laboratory tests performed for evaluation of overall blood counts. Patient had daily physical therapy to include strengthening range of motion as well as education with walker ambulation. Patient was treated with Xarelto for their postoperative DVT prophylaxis during their inpatient stay. Patient was noted to have a relatively uneventful postoperative course. Patient reported satisfactory pain control with oral pain medications by postoperative day 0. Patient showed satisfactory progress with physical therapy. Patient moved steadily through the program and had no difficulty meeting the goals by postoperative day 1. Given patient's otherwise satisfactory course and having met physical therapy goals, plan is to discharge patient home on postoperative day 1. Discharge condition/disposition: Patient will be discharged home in stable condition. Discharge medications: Instructions are given on resumption of patient's normal daily medications per primary care recommendation, in addition patient will be prescribed Barton 5 mg/325 mg, Colace 100 mg, Eliquis 2.5 mg. Discharge instructions: 1. Wound care and infection precautions, keep incision dry and covered while showering, no lotions, creams, moisturizers. No soaking, tubs, pools, hottubs. Do not scrub over the incision. 2. Weight-bear as tolerated with walker / cane until follow-up. 3. Ice and elevate when necessary. Do not exceed 20 minutes per hour with ice pack. 4. Utilize compression sleeve until seen at first follow up appointment. 5. Visiting nursing care. 6. Home physical therapy including home CPM. 7. Pain meds and anticoagulants per prescription. 8. Pain medication has potential to cause constipation. Increase oral fluid and fiber intake. Contact primary care provider if you have not had a bowel movement within 48 hours after discharge 9. No anti-inflammatory medication until discussed at first post operative visit, this including Motrin, Aleve, Mobic, Diclofenac 10. Follow up in office at 2 weeks postop with Zan Lucas PA-C/Eduardo Dodge 11. Follow up with your primary care doctor 7-10 days after discharge. 12. Contact [facility] with any questions, . Procedures: Right total knee arthroplasty Patient Condition at Discharge: Good Plan - Discharge Summary Discharge Rx Participant: Yes New Discharge Prescriptions: New Sennosides-Docusate Sodium [Senokot-S] 2 each PO HS tab Apixaban [Eliquis] 2.5 mg PO BID #60 tab HYDROcodone/APAP 5-325MG [Barton 5-325] 1 - 2 tab PO Q6HR PRN #56 tab PRN Reason: Pain Continue Gabapentin [Neurontin] 300 mg PO TID Potassium Gluconate 595 mg PO DAILY Multivit-Min/FA/Lycopen/Lutein [Centrum Silver Tablet] 1 tab PO DAILY Aspirin [Adult Low Dose Aspirin EC] 81 mg PO DAILY Zinc Gluconate [Zinc] 100 mg PO DAILY Furosemide [Lasix] 10 mg PO Q48H PRN PRN Reason: Edema ALPRAZolam [Xanax] 2 mg PO HS Tetrahydrozoline HCl/Zinc Sulf [Visine Allergy Relief Drop] 1 drop BOTH EYES DAILY PRN PRN Reason: ITCHY EYES Enalapril Maleate [Vasotec] 20 mg PO BID Calcium Carbonate/Vitamin D3 [Calcium 500-Vit D3 5 Mcg (200 Iu)] 1 tab PO DAILY atenoloL [Tenormin] 50 mg PO QAM Magnesium 250 mg PO DAILY DULoxetine HCL [Cymbalta] 60 mg PO DAILY Atorvastatin [Lipitor] 10 mg PO DAILY Albuterol Nebulized [Ventolin Nebulized] 2.5 mg INHALATION Q6H PRN PRN Reason: Shortness Of Breath Cholecalciferol [Vitamin D3 (25 Mcg = 1000 Iu)] 25 mcg PO DAILY Discontinued Ibuprofen 200 - 800 mg PO Q8H PRN PRN Reason: Pain Discharge Medication List Aspirin [Adult Low Dose Aspirin EC] 81 mg PO DAILY 06/25/15 [History] Gabapentin [Neurontin] 300 mg PO TID 06/25/15 [History] Multivit-Min/FA/Lycopen/Lutein [Centrum Silver Tablet] 1 tab PO DAILY 06/25/15 [History] Potassium Gluconate 595 mg PO DAILY 06/25/15 [History] Furosemide [Lasix] 10 mg PO Q48H PRN 01/21/16 [History] Zinc Gluconate [Zinc] 100 mg PO DAILY 01/21/16 [History] ALPRAZolam [Xanax] 2 mg PO HS 02/24/17 [History] Calcium Carbonate/Vitamin D3 [Calcium 500-Vit D3 5 Mcg (200 Iu)] 1 tab PO DAILY 05/05/19 [History] Enalapril Maleate [Vasotec] 20 mg PO BID 05/05/19 [History] Tetrahydrozoline HCl/Zinc Sulf [Visine Allergy Relief Drop] 1 drop BOTH EYES DAILY PRN 05/05/19 [History] atenoloL [Tenormin] 50 mg PO QAM 05/05/19 [History] Atorvastatin [Lipitor] 10 mg PO DAILY 08/04/20 [History] DULoxetine HCL [Cymbalta] 60 mg PO DAILY 08/04/20 [History] Magnesium 250 mg PO DAILY 08/04/20 [History] Albuterol Nebulized [Ventolin Nebulized] 2.5 mg INHALATION Q6H PRN 12/26/20 [History] Cholecalciferol [Vitamin D3 (25 Mcg = 1000 Iu)] 25 mcg PO DAILY 12/26/20 [History] Apixaban [Eliquis] 2.5 mg PO BID #60 tab 12/31/20 [Rx] HYDROcodone/APAP 5-325MG [Barton 5-325] 1 - 2 tab PO Q6HR PRN #56 tab 12/31/20 [Rx] Sennosides-Docusate Sodium [Senokot-S] 2 each PO HS tab 12/31/20 [Rx] Follow up Appointment(s)/Referral(s): [facility], [NON-STAFF] - As Needed Andrzej Lucas PAC [PHYSICIAN GEOSCIENTIST] - 2 Weeks Rolf,Daniel, DO [Primary Care Provider] - 1 Week Araceli Gonzalez [NON-STAFF] - As Needed (Continuous Passive Motion knee machine) Activity/Diet/Wound Care/Special Instructions: Hold aspirin 81 mg while on Xarelto, resume after course of Xarelto is completed. Orthopedic Discharge Instructions: 1. Wound care and infection precautions, keep incision dry and covered while showering, no lotions, creams, moisturizers. No soaking, pools, hot tubs. Do not scrub over incision. 2. Weight-bear as tolerated with walker / cane until follow-up. 3. Ice and elevate when necessary. Do not exceed 20 minutes per hour with ice pack. 4. Utilize compression sleeve until seen at first follow up appointment. 5. Pain meds and anticoagulants per prescription. 6. Pain medication has potential to cause constipation. Increase oral fluid and fiber intake. Contact primary care provider if you have not had a bowel movement within 48 hours after discharge. 7. No anti-inflammatory medication until discussed at first post operative visit, this including Motrin, Aleve, Mobic, Diclofenac. 8. Follow up in office at 2 weeks postop with Zan Lucas PA-C/Eduardo Dukes PA-C 9. Follow up with your primary care doctor 7-10 days after discharge. 10. Contact [facility] with any questions, . Discharge Disposition: HOME WITH HOME HEALTH SERVICES
--- NOTE | 2020-12-31 11:38 | P.PN ---
Progress Note - Text Progress Note Date: 12/31/20 Patient seen and examined. Pain well controlled s/p total knee replacement. Patient is able to ambulate without difficulty with assistance. Patient denies headache, fever, chills. Pain well controlled with adductor canal catheter and oral medication. Continue will current pain regime and catheter.
--- NOTE | 2020-12-31 11:53 | P.CONS ---
History of Present Illness - Reason for Consult Consult date: 12/31/20 Medical management - History of Present Illness HISTORY OF PRESENT ILLNESS This is a 70-year-old female patient of Dr. Bansal with past medical history of coronary artery disease s/p 2 stents, hypertension, hyperlipidemia, mild intermittent asthma, bilateral lower extremity neuropathy, sciatica, seasonal ALLERGIES. Patient was brought in the hospital under the care of Dr. Shaikh status post right knee arthroplasty. Patient gives history that she was recently seen by Dr. Shrestha 3 days ago and is scheduled for a sleep study because she has been feeling exhausted. Her kettle coordinator is Dr. KEVIN Higginbotham. She had 2 stents placed when she was 48 years old. She denies having any chest pain or shortness of breath. No history of CVA. Patient has had no postop complications. She states she has walked in the hallway with physical therapy and is scheduled for discharge home today. REVIEW OF SYSTEMS Constitutional: No fever, no chills, no night sweats. No weight change. No weakness, fatigue or lethargy. No daytime sleepiness. EENT: No headache. No blurred vision or double vision, no loss of vision. No loss of Hearing, no ringing in the ears, no dizziness. No nasal drainage or congestion. No epistaxis. No sore throat. Lungs: No shortness of breath, cough, no sputum production. No wheezing. Cardiovascular: No chest pain, no lower extremity edema. No palpitations. No paroxysmal nocturnal dyspnea. No orthopnea. No lightheadedness or dizziness. No syncopal episodes. Abdominal: No abdominal pain. No nausea, vomiting. No diarrhea. No constipa tion. No bloody or tarry stools.. No loss of appetite. Genitourinary: No dysuria, increased frequency, urgency. No urinary retention. Musculoskeletal: No myalgias. No muscle weakness, no gait dysfunction, no frequent falls. No back pain. No neck pain. Integumentary: No wounds, no lesions. No rash or pruritus. No unusual bruising. No change in hair or nails. Neurologic: No aphasia. No facial droop. No change in mentation. No head injury. No headache. No paralysis. No paresthesia. Psychiatric: No depression. No anxiety. No mood swings. Endocrine: No abnormal blood sugars. SOCIAL HISTORY The patient denies history of tobacco use, alcohol use, illicit drug use. She worked in the past for [employer]. She is . FAMILY HISTORY Mother at age 95 from old age. Father at age 68 from a myocardial infarction. Patient has 4 sisters and one from alcohol and drug abuse. Patient has 3 brothers with no major medical problems. Patient has 3 sons ages 49, 41 and 36 with no major medical problems. PHYSICAL EXAMINATION Gen: This is a morbidly obese female patient. She is resting in a recliner appears to be comfortable and in no acute distress. HEENT: Head is atraumatic, normocephalic. Pupils equal, round. Sclerae is anicteric. NECK: Supple. No JVD. No lymphadenopathy. No thyromegaly. LUNGS: Clear to auscultation. No wheezes or rhonchi. No intercostal retractions. HEART: Regular rate and rhythm. Systolic murmur. ABDOMEN: Soft. Bowel sounds are present. No masses. No tenderness. EXTREMITIES: No pedal edema. No calf tenderness. Dressing in place to the right knee. NEUROLOGICAL: Patient is awake, alert and oriented x3. Cranial nerves 2 through 12 are grossly intact. ASSESSMENT AND PLAN 1. Osteoarthritis status post right total knee arthroplasty, POD #1. Continue current pain management per orthopedics, PT and OT. Patient was switched to eliquis for discharge for DVT prophylaxis. Patient to hold aspirin while on DVT prophylaxis. 2. Coronary artery disease status post stents. Continue atenolol 50 mg daily, Lipitor 10 mg daily, hold aspirin 81 mg daily. 3. Hyperlipidemia. Continue statin. 4. Mild intermittent asthma. Continue albuterol nebulizer treatment every 6 hours as needed. 5. Lower extremity neuropathy. Continue gabapentin 300 mg 3 times daily 6. Seasonal ALLERGIES. Continue ALLERGY drops. 7. Recurrent depression and generalized anxiety disorder. Continue Cymbalta 60 mg daily, Xanax 2 mg at bedtime. 8. Hypertension. Continue atenolol and Vasotec 20 mg twice daily. 9. Insomnia. Patient has seen Dr. Shrestha with plan for sleep study. DISCHARGE PLAN Home with [facility]. Impression and plan of care have been directed as dictated by the signing physician. Jackie Devries nurse practitioner acting as scribe for signing physician. Past Medical History Past Medical History: Asthma, Coronary Artery Disease (CAD), Hyperlipidemia, Hypertension, Osteoarthritis (OA) Additional Past Medical History / Comment(s): Neuropathy in feet, sciatica.seaonal allergies . History of Any Multi-Drug Resistant Organisms: None Reported Past Surgical History: Section, Heart Catheterization With Stent, Joint Replacement, Orthopedic Surgery Additional Past Surgical History / Comment(s): Bilateral shoulder surgeries, left knee replacement, lt eye cataract surgery, removal of uterine polyps, pilonidal cyst, COLONOSCOPY, EGD, Past Anesthesia/Blood Transfusion Reactions: No Reported Reaction Date of Last Stent Placement:: 1998 Past Psychological History: Anxiety Smoking Status: Never smoker Past Alcohol Use History: None Reported Additional Past Alcohol Use History / Comment(s): Quit smoking 2010 Past Drug Use History: None Reported - Past Family History Mother Family Medical History: No Reported History Medications and Allergies Home Medications Medication Instructions Recorded Confirmed Type Aspirin [Adult Low Dose Aspirin EC] 81 mg PO DAILY 06/25/15 12/30/20 History Gabapentin [Neurontin] 300 mg PO TID 06/25/15 12/30/20 History Multivit-Min/FA/Lycopen/Lutein 1 tab PO DAILY 06/25/15 12/30/20 History [Centrum Silver Tablet] Potassium Gluconate 595 mg PO DAILY 06/25/15 12/30/20 History Furosemide [Lasix] 10 mg PO Q48H PRN 01/21/16 12/30/20 History Zinc Gluconate [Zinc] 100 mg PO DAILY 01/21/16 12/30/20 History ALPRAZolam [Xanax] 2 mg PO HS 02/24/17 12/30/20 History Calcium Carbonate/Vitamin D3 1 tab PO DAILY 05/05/19 12/30/20 History [Calcium 500-Vit D3 5 Mcg (200 Iu)] Enalapril Maleate [Vasotec] 20 mg PO BID 05/05/19 12/30/20 History Tetrahydrozoline HCl/Zinc Sulf 1 drop BOTH EYES DAILY PRN 05/05/19 12/30/20 History [Visine Allergy Relief Drop] atenoloL [Tenormin] 50 mg PO QAM 05/05/19 12/30/20 History Atorvastatin [Lipitor] 10 mg PO DAILY 08/04/20 12/30/20 History DULoxetine HCL [Cymbalta] 60 mg PO DAILY 08/04/20 12/30/20 History Magnesium 250 mg PO DAILY 08/04/20 12/30/20 History Albuterol Nebulized [Ventolin 2.5 mg INHALATION Q6H PRN 12/26/20 12/30/20 History Nebulized] Cholecalciferol [Vitamin D3 (25 25 mcg PO DAILY 12/26/20 12/30/20 History Mcg = 1000 Iu)] Apixaban [Eliquis] 2.5 mg PO BID #60 tab 12/31/20 Rx HYDROcodone/APAP 5-325MG [[place] 1 - 2 tab PO Q6HR PRN #56 tab 12/31/20 Rx 5-325] Sennosides-Docusate Sodium 2 each PO HS tab 12/31/20 Rx [Senokot-S] Allergies Allergy/AdvReac Type Severity Reaction Status Date / Time Penicillins Allergy Swelling Verified 12/30/20 06:43 silver Allergy blister Verified 12/30/20 06:43 Sulfa (Sulfonamide Allergy Rash/Hives Verified 12/30/20 06:43 Antibiotics) sulfamethoxazole Allergy Rash/Hives Verified 12/30/20 06:43 [From Bactrim] trimethoprim [From Bactrim] Allergy Rash/Hives Verified 12/30/20 06:43 adhesive AdvReac pulls skin Verified 12/30/20 06:43 off gold Allergy blister Uncoded 12/30/20 06:43 metal Allergy blister Uncoded 12/30/20 06:43 Physical Exam Vitals: Vital Signs Temp Pulse Pulse Resp BP Pulse Ox 12/31/20 07:57 97.7 F 71 16 148/69 94 L 12/31/20 03:12 97.7 F 83 16 152/70 95 12/30/20 20:48 97.8 F 88 18 179/74 96 12/30/20 15:09 73 147/72 94 L 12/30/20 14:09 77 115/60 93 L 12/30/20 14:00 98.0 F 75 18 104/69 94 L 12/30/20 13:55 73 160/74 95 12/30/20 13:09 84 104/69 93 L 12/30/20 12:30 68 16 138/67 97 12/30/20 12:00 73 16 155/63 97 12/30/20 11:35 74 16 164/73 100 12/30/20 11:20 75 16 163/72 100 12/30/20 11:05 79 16 191/87 100 12/30/20 10:55 78 16 169/85 100 12/30/20 10:40 75 16 180/77 100 12/30/20 10:25 73 16 195/86 100 12/30/20 10:10 74 18 182/86 100 12/30/20 09:55 97.5 F L 82 16 192/87 100 Intake and Output 12/30/20 12/31/20 12/31/20 22:59 06:59 14:59 Other: # Voids 1 4
[2020-12-31 13:36] LABS: Basophils # (A) 0.02 X 10*3/uL (0.00-0.10); Basophils % (A) 0.2 %; Eosinophils # (A) 0.01 X 10*3/uL (0.04-0.35); Eosinophils % (A) 0.1 %; HCT 40.6 % (37.2-46.3); Lymphocytes # (A) 1.64 X 10*3/uL (0.90-5.00); Lymphocytes % (A) 16.2 %; MCH 30.4 pg (27.0-32.0); MCV 94.9 fL (80.0-97.0); Mean Platelet Volume 11.4 fL (9.5-12.2); Monocytes # (A) 0.93 X 10*3/uL (0.20-1.00); Monocytes % (A) 9.2 %; Neutrophils % (A) 73.9 %; Platelet Count 188 X 10*3/uL (140-440); RBC 4.28 X 10*6/uL (4.10-5.20); RDW 12.2 % (11.5-14.5); WBC 10.14 X 10*3/uL (4.50-10.00)
== END 2020-12-31 12:30 | disposition home health service (06) ==
LOC: OR 06:05 → 4SSUR 09:52 → OR 12-31 12:30
PROVIDERS: ATTEND Orthopaedic Surgery
DX: M17.11 Unilateral primary osteoarthritis, right knee (principal); I25.10 Atherosclerotic heart disease of native coronary artery without angina pectoris; I10 Essential (primary) hypertension; Z98.890 Other specified postprocedural states; Z98.891 History of uterine scar from previous surgery; Z95.5 Presence of coronary angioplasty implant and graft; E66.01 Morbid (severe) obesity due to excess calories; Z68.43 Body mass index [BMI] 50.0-59.9, adult; J45.20 Mild intermittent asthma, uncomplicated; G47.00 Insomnia, unspecified; Z20.822 Contact with and (suspected) exposure to COVID-19; G47.33 Obstructive sleep apnea (adult) (pediatric); G62.9 Polyneuropathy, unspecified; Z98.42 Cataract extraction status, left eye; F41.9 Anxiety disorder, unspecified; Z87.891 Personal history of nicotine dependence; Z97.2 Presence of dental prosthetic device (complete) (partial); Z88.8 Allergy status to other drugs, medicaments and biological substances; Z91.048 Other nonmedicinal substance allergy status; Z91.09 Other allergy status, other than to drugs and biological substances; Z79.82 Long term (current) use of aspirin; Z79.899 Other long term (current) drug therapy; Z88.5 Allergy status to narcotic agent; Z88.0 Allergy status to penicillin; Z88.2 Allergy status to sulfonamides; J30.2 Other seasonal allergic rhinitis
CPT/HCPCS: 97161; 64448; 76942; 85025; 88300; 87635; 73560; 27447; C1713; C1776; J2250; J1100; J0690 ×3; J2405; J3010; J1170; J2795

== ENCOUNTER 2021-01-31 17:10 | Emergency (ER) | payer MEDICARE ==
[2021-01-31 17:22] VITALS: TEMP 98.6
[2021-01-31] MEDS ORDERED: traMADol 50 MG TAB PO STA (18:01)
--- NOTE | 2021-01-31 18:44 | XR ---
EXAMINATION TYPE: XR knee complete RT DATE OF EXAM: 01/31/2021 COMPARISON: 11/04/2020 HISTORY: Knee pain TECHNIQUE: 3 views FINDINGS: There is right knee prosthesis. Components appear in anatomic position. There is evidence o f knee joint effusion. I see no fracture. IMPRESSION: Joint effusion. No fracture seen. Fluid is probably new compared to old exam.
[2021-01-31] MEDS ORDERED: IBUPROFEN 600 MG TAB PO STA (19:14)
--- NOTE | 2021-01-31 20:35 | ED ---
Fall HPI - General Chief Complaint: Fall Stated Complaint: Rt Knee Injury Time Seen by Provider: 01/31/21 17:10 Source: patient, EMS Mode of arrival: EMS - History of Present Illness Initial Comments: 7-year-old female presents emergency Department with reported right knee pain. Patient is brought in by EMS from [facility]. She states that she had a knee replacement done by Dr. Graham on December 30. She just started physical therapy on . Reports after physical therapy she has had some increasing pain in her right knee. Today when she was at [facility] she was attempting to get into the car when her knee gave out on her. Denies falling on the knee or having a twisting injury however felt a pop and began having significant pain. She has been unable to ambulate. EMS was called. She was offered something for pain control however refused. Patient presents today and states she cannot extend her knee. Denies any other injuries from the fall. No headache or neck pain. Chest pain or shortness of breath. Denies any redness or swelling to the joint previous to her trauma. No fevers or chills. No other alleviating, precipitating or modifying factors - Related Data Home Medications Medication Instructions Recorded Confirmed Aspirin [Adult Low Dose Aspirin EC] 81 mg PO DAILY 06/25/15 12/30/20 Gabapentin [Neurontin] 300 mg PO TID 06/25/15 12/30/20 Multivit-Min/FA/Lycopen/Lutein 1 tab PO DAILY 06/25/15 12/30/20 [Centrum Silver Tablet] Potassium Gluconate 595 mg PO DAILY 06/25/15 12/30/20 Furosemide [Lasix] 10 mg PO Q48H PRN 01/21/16 12/30/20 Zinc Gluconate [Zinc] 100 mg PO DAILY 01/21/16 12/30/20 ALPRAZolam [Xanax] 2 mg PO HS 02/24/17 12/30/20 Calcium Carbonate/Vitamin D3 1 tab PO DAILY 05/05/19 12/30/20 [Calcium 500-Vit D3 5 Mcg (200 Iu)] Enalapril Maleate [Vasotec] 20 mg PO BID 05/05/19 12/30/20 Tetrahydrozoline HCl/Zinc Sulf 1 drop BOTH EYES DAILY PRN 05/05/19 12/30/20 [Visine Allergy Relief Drop] atenoloL [Tenormin] 50 mg PO QAM 05/05/19 12/30/20 Atorvastatin [Lipitor] 10 mg PO DAILY 08/04/20 12/30/20 DULoxetine HCL [Cymbalta] 60 mg PO DAILY 08/04/20 12/30/20 Magnesium 250 mg PO DAILY 08/04/20 12/30/20 Albuterol Nebulized [Ventolin 2.5 mg INHALATION Q6H PRN 12/26/20 12/30/20 Nebulized] Cholecalciferol [Vitamin D3 (25 25 mcg PO DAILY 12/26/20 12/30/20 Mcg = 1000 Iu)] Previous Rx's Medication Instructions Recorded Apixaban [Eliquis] 2.5 mg PO BID #60 tab 12/31/20 HYDROcodone/APAP 5-325MG [[place] 1 - 2 tab PO Q6HR PRN #56 tab 12/31/20 5-325] Sennosides-Docusate Sodium 2 each PO HS tab 12/31/20 [Senokot-S] HYDROcodone/APAP 5-325MG [[place] 1 tab PO Q6HR PRN #14 tab 01/10/21 5-325] traMADol HCl [Ultram] 50 mg PO Q6H PRN #20 tab 01/31/21 Allergies Allergy/AdvReac Type Severity Reaction Status Date / Time Penicillins Allergy Swelling Verified 01/31/21 17:23 silver Allergy blister Verified 01/31/21 17:23 Sulfa (Sulfonamide Allergy Rash/Hives Verified 01/31/21 17:23 Antibiotics) sulfamethoxazole Allergy Rash/Hives Verified 01/31/21 17:23 [From Bactrim] trimethoprim [From Bactrim] Allergy Rash/Hives Verified 01/31/21 17:23 adhesive AdvReac pulls skin Verified 01/31/21 17:23 off gold Allergy blister Uncoded 01/31/21 17:23 metal Allergy blister Uncoded 01/31/21 17:23 Review of Systems ROS Statement: Those systems with pertinent positive or pertinent negative responses have been documented in the HPI. ROS Other: All systems not noted in ROS Statement are negative. Past Medical History Past Medical History: Coronary Artery Disease (CAD), Hyperlipidemia, Hypertension, Osteoarthritis (OA), Pneumonia Additional Past Medical History / Comment(s): Neuropathy in feet, sciatica.seaonal allergies . recent falls History of Any Multi-Drug Resistant Organisms: None Reported Past Surgical History: Heart Catheterization With Stent, Joint Replacement, Orthopedic Surgery Additional Past Surgical History / Comment(s): Bilateral shoulder surgeries, left knee replacement, lt eye cataract surgery, removal of uterine polyps, pilonidal cyst Past Anesthesia/Blood Transfusion Reactions: No Reported Reaction Date of Last Stent Placement:: 1998 Past Psychological History: Anxiety Past Alcohol Use History: Rare - Past Family History Mother Family Medical History: No Reported History General Exam General appearance: alert, in no apparent distress Head exam: Present: atraumatic, normocephalic, normal inspection Respiratory exam: Present: normal lung sounds bilaterally. Absent: respiratory distress, wheezes, rales, rhonchi, stridor Cardiovascular Exam: Present: regular rate, normal rhythm, normal heart sounds. Absent: systolic murmur, diastolic murmur, rubs, gallop, clicks Extremities exam: Present: other (well healed surgical scar over the right knee. Right knee joint swelling. No lacerations or abrasions. No ecchymosis. Patient can not extend at the knee. Intact hip flexion, ankle plantar and dorsiflexion. 2+ DP and PT pulses. Intact sensation. ) Course Vital Signs 01/31/21 01/31/21 17:11 20:56 Temperature 98.6 F Pulse Rate 70 68 Respiratory 18 16 Rate Blood Pressure 185/72 189/92 O2 Sat by Pulse 98 98 Oximetry Medical Decision Making - Medical Decision Making Upon arrival the patient was placed into room 28. Thorough history and physical exam was performed. Patient is given Ultram for pain control and sent over for an x-ray of her right knee. I did call and speak [facility]. Patient will be placed in a knee immobilizer. She is to weight- bear as tolerated. Rest, ice and elevate the extremity. She is to call Dr. Graham's office on Tuesday for follow-up. We'll likely need an MRI for possible quadriceps rupture. Return to the emergency department for any new or worsening symptoms. Prescription for Ultram was called to the pharmacy. Patient agreed to this was discharged home in stable condition Disposition Clinical Impression: Fall, Right knee pain Disposition: HOME SELF-CARE Condition: Stable Instructions (If sedation given, give patient instructions): Knee Pain (ED) Additional Instructions: Ambulate as tolerated. Rest, ice and elevate the extremity. Take tramadol and Motrin for pain control. Call Dr. Graham on Tuesday for an appointment. Return to the emergency room for any new or worsening symptoms Prescriptions: traMADol HCl [Ultram] 50 mg PO Q6H PRN #20 tab PRN Reason: Pain Is patient prescribed a controlled substance at d/c from ED?: Yes When asked, does pt state using other controlled substances?: No If prescribed controlled substance>3 days was MAPS reviewed?: Prescribed <3 Days If opioid is for acute pain is fill amount 7 days or less?: No If Rx opioid, was Start Talking consent form obtained?: No Referrals: Daniel Bansal DO [Primary Care Provider] - 1-2 days Time of Disposition: 20:34
[2021-01-31 20:57] VITALS: BP 189/92; PULSE 68; RESP 16
== END 2021-01-31 20:57 | disposition home or self-care (01) ==
LOC: EC 17:10
DX: M25.561 Pain in right knee (principal); F41.9 Anxiety disorder, unspecified; I10 Essential (primary) hypertension; E78.5 Hyperlipidemia, unspecified; I25.10 Atherosclerotic heart disease of native coronary artery without angina pectoris; G62.9 Polyneuropathy, unspecified; M19.90 Unspecified osteoarthritis, unspecified site; Z79.01 Long term (current) use of anticoagulants; Z79.82 Long term (current) use of aspirin; Z88.0 Allergy status to penicillin; W18.30XA Fall on same level, unspecified, initial encounter
CPT/HCPCS: 73562; 99284; L1830

== ENCOUNTER 2021-02-02 16:08 | Emergency (ER) | payer MEDICARE ==
[2021-02-02 16:21] VITALS: BP 158/80; PULSE 69; RESP 18; TEMP 97.9
[2021-02-02] MEDS ORDERED: MORPHINE SULFATE 4 MG/ML SYRINGE IM STA (16:28)
--- NOTE | 2021-02-02 17:13 | XR ---
EXAMINATION TYPE: XR knee complete RT DATE OF EXAM: 02/02/2021 COMPARISON: 01/31/2021 HISTORY: Knee pain TECHNIQUE: 3 views FINDINGS: There is right knee prosthesis. Components are in anatomic position. I see no fracture. The re is probably knee joint effusion. IMPRESSION: No fracture seen. There is probably knee joint effusion without change.
--- NOTE | 2021-02-02 17:14 | ED ---
Lower Extremity Injury HPI - General Chief Complaint: Extremity Injury, Lower Stated Complaint: rt knee pain Time Seen by Provider: 02/02/21 16:18 Source: patient, EMS, RN notes reviewed Mode of arrival: EMS Limitations: physical limitation - History of Present Illness Initial Comments: Patient is a 70-year-old female that presents to emergency department complaining of right lateral knee pain. She notes that she recently had a knee replacement done in December. She notes that he'll well but she is having difficulty bearing weight. She notes that she has mailed to therapy. She notes that she has to call EMS to help her get up to go the bathroom. She was in no apparent distress or pain while sitting in bed during exam and interview. She did have full range of motion and feeling in his patient in her right lower extremity. She noted that her pain was a 9 out of 10 while sitting in bed with no relief from at home medications. She did have a follow-up with her orthopedist who told her to rest in bed for a week and then see him again on Tuesday. She denied any new injury or trauma chest pendulous breath headache nausea vomiting diarrhea constipation fever fatigue chills. - Related Data Home Medications Medication Instructions Recorded Confirmed Aspirin [Adult Low Dose Aspirin EC] 81 mg PO DAILY 06/25/15 12/30/20 Gabapentin [Neurontin] 300 mg PO TID 06/25/15 12/30/20 Multivit-Min/FA/Lycopen/Lutein 1 tab PO DAILY 06/25/15 12/30/20 [Centrum Silver Tablet] Potassium Gluconate 595 mg PO DAILY 06/25/15 12/30/20 Furosemide [Lasix] 10 mg PO Q48H PRN 01/21/16 12/30/20 Zinc Gluconate [Zinc] 100 mg PO DAILY 01/21/16 12/30/20 ALPRAZolam [Xanax] 2 mg PO HS 02/24/17 12/30/20 Calcium Carbonate/Vitamin D3 1 tab PO DAILY 05/05/19 12/30/20 [Calcium 500-Vit D3 5 Mcg (200 Iu)] Enalapril Maleate [Vasotec] 20 mg PO BID 05/05/19 12/30/20 Tetrahydrozoline HCl/Zinc Sulf 1 drop BOTH EYES DAILY PRN 05/05/19 12/30/20 [Visine Allergy Relief Drop] atenoloL [Tenormin] 50 mg PO QAM 05/05/19 12/30/20 Atorvastatin [Lipitor] 10 mg PO DAILY 08/04/20 12/30/20 DULoxetine HCL [Cymbalta] 60 mg PO DAILY 08/04/20 12/30/20 Magnesium 250 mg PO DAILY 08/04/20 12/30/20 Albuterol Nebulized [Ventolin 2.5 mg INHALATION Q6H PRN 12/26/20 12/30/20 Nebulized] Cholecalciferol [Vitamin D3 (25 25 mcg PO DAILY 12/26/20 12/30/20 Mcg = 1000 Iu)] Previous Rx's Medication Instructions Recorded Apixaban [Eliquis] 2.5 mg PO BID #60 tab 12/31/20 HYDROcodone/APAP 5-325MG [[place] 1 - 2 tab PO Q6HR PRN #56 tab 12/31/20 5-325] Sennosides-Docusate Sodium 2 each PO HS tab 12/31/20 [Senokot-S] HYDROcodone/APAP 5-325MG [[place] 1 tab PO Q6HR PRN #14 tab 01/10/21 5-325] traMADol HCl [Ultram] 50 mg PO Q6H PRN #20 tab 01/31/21 Allergies Allergy/AdvReac Type Severity Reaction Status Date / Time Penicillins Allergy Swelling Verified 02/02/21 16:21 silver Allergy blister Verified 02/02/21 16:21 Sulfa (Sulfonamide Allergy Rash/Hives Verified 02/02/21 16:21 Antibiotics) sulfamethoxazole Allergy Rash/Hives Verified 02/02/21 16:21 [From Bactrim] trimethoprim [From Bactrim] Allergy Rash/Hives Verified 02/02/21 16:21 adhesive AdvReac pulls skin Verified 02/02/21 16:21 off gold Allergy blister Uncoded 02/02/21 16:21 metal Allergy blister Uncoded 02/02/21 16:21 Review of Systems ROS Statement: Those systems with pertinent positive or pertinent negative responses have been documented in the HPI. ROS Other: All systems not noted in ROS Statement are negative. Past Medical History Past Medical History: Coronary Artery Disease (CAD), Hyperlipidemia, Hypertension, Osteoarthritis (OA), Pneumonia Additional Past Medical History / Comment(s): Neuropathy in feet, sciatica.seaonal allergies . recent falls History of Any Multi-Drug Resistant Organisms: None Reported Past Surgical History: Heart Catheterization With Stent, Joint Replacement, Orthopedic Surgery Additional Past Surgical History / Comment(s): Bilateral shoulder surgeries, left knee replacement, lt eye cataract surgery, removal of uterine polyps, pilonidal cyst, right knee replacement- dr white, Past Anesthesia/Blood Transfusion Reactions: No Reported Reaction Date of Last Stent Placement:: 1998 Past Psychological History: Anxiety Smoking Status: Former smoker Past Alcohol Use History: Rare Past Drug Use History: None Reported - Past Family History Mother Family Medical History: No Reported History General Exam Limitations: physical limitation General appearance: alert, in no apparent distress, obese Head exam: Present: atraumatic, normocephalic, normal inspection Eye exam: Present: normal appearance, PERRL, EOMI. Absent: scleral icterus, conjunctival injection, periorbital swelling Neck exam: Present: normal inspection Respiratory exam: Present: normal lung sounds bilaterally. Absent: respiratory distress, wheezes, rales, rhonchi, stridor Cardiovascular Exam: Present: regular rate, normal rhythm, normal heart sounds. Absent: systolic murmur, diastolic murmur, rubs, gallop, clicks Right Knee exam: Present: normal inspection, full ROM, tenderness (Lateral aspect over the IT band.), swelling (Minimal) Neurological exam: Present: alert, oriented X3 Psychiatric exam: Present: normal affect, normal mood Skin exam: Present: warm, dry, intact, normal color. Absent: rash Course Vital Signs 02/02/21 16:14 Temperature 97.9 F Pulse Rate 69 Respiratory 18 Rate Blood Pressure 158/80 O2 Sat by Pulse 95 Oximetry Medical Decision Making - Medical Decision Making 70-year-old female complaining of right knee pain status post knee replacement surgery. X-ray of the right knee, 4 mg of morphine ordered. X-ray negative for any acute process, mild joint effusion no change from previous. Case discussed with Dr. Knight, patient can follow-up with orthopedist as planned. - Radiology Data Radiology results: report reviewed, image reviewed X-ray right knee: No fracture seen. There is probable knee joint effusion wi thout change. Disposition Clinical Impression: Right knee pain Disposition: HOME SELF-CARE Condition: Stable Instructions (If sedation given, give patient instructions): Knee Pain (ED) Additional Instructions: Please return to the Emergency Department if symptoms worsen or any other concerns. Follow-up with orthopedist as scheduled on Tuesday. Continue take at home medications as prescribed. Is patient prescribed a controlled substance at d/c from ED?: No Referrals: Daniel Bansal DO [Primary Care Provider] - 1-2 days Time of Disposition: 17:32
[2021-02-02] MEDS ORDERED: ACET/COD 300 MG/30 MG STARTER PACK 6 TAB BTL PO STA (17:50)
== END 2021-02-02 18:00 | disposition home or self-care (01) ==
LOC: EC 16:08
DX: M25.561 Pain in right knee (principal); E66.9 Obesity, unspecified; I10 Essential (primary) hypertension; I25.10 Atherosclerotic heart disease of native coronary artery without angina pectoris; E78.5 Hyperlipidemia, unspecified; F41.9 Anxiety disorder, unspecified; M19.90 Unspecified osteoarthritis, unspecified site; Z79.01 Long term (current) use of anticoagulants; Z79.82 Long term (current) use of aspirin; Z79.891 Long term (current) use of opiate analgesic; Z79.51 Long term (current) use of inhaled steroids; Z79.899 Other long term (current) drug therapy; Z87.891 Personal history of nicotine dependence; Z88.0 Allergy status to penicillin; Z88.1 Allergy status to other antibiotic agents; Z88.2 Allergy status to sulfonamides; Z96.653 Presence of artificial knee joint, bilateral; Z68.37 Body mass index [BMI] 37.0-37.9, adult
CPT/HCPCS: 73562; 99284; 96372; J2270

== ENCOUNTER 2021-05-30 21:17 | Inpatient (IN) | payer MEDICARE ==
[2021-05-30] MEDS ORDERED: IPRATROPIUM-ALBUTEROL 3 ML NEB INHALATION STA (21:28)
[2021-05-30] MEDS ORDERED: SODIUM CHLORIDE 0.9% 1,000 ML IV STA ×2 (21:28→22:59)
--- NOTE | 2021-05-30 21:29 | ED ---
SOB HPI - General Stated Complaint: MARIPOSA Time Seen by Provider: 05/30/21 21:26 - Related Data Home Medications Medication Instructions Recorded Confirmed Aspirin [Adult Low Dose Aspirin EC] 81 mg PO DAILY 06/25/15 12/30/20 Gabapentin [Neurontin] 300 mg PO TID 06/25/15 12/30/20 Multivit-Min/FA/Lycopen/Lutein 1 tab PO DAILY 06/25/15 12/30/20 [Centrum Silver Tablet] Potassium Gluconate [Potassium 595 mg PO DAILY 06/25/15 12/30/20 Gluconate ER] Furosemide [Lasix] 10 mg PO Q48H PRN 01/21/16 12/30/20 Zinc Gluconate [Zinc] 100 mg PO DAILY 01/21/16 12/30/20 ALPRAZolam [Xanax] 2 mg PO HS 02/24/17 12/30/20 Calcium Carbonate/Vitamin D3 1 tab PO DAILY 05/05/19 12/30/20 [Calcium 500-Vit D3 5 Mcg (200 Iu)] Enalapril Maleate [Vasotec] 20 mg PO BID 05/05/19 12/30/20 Tetrahydrozoline HCl/Zinc Sulf 1 drop BOTH EYES DAILY PRN 05/05/19 12/30/20 [Visine Allergy Relief Drop] atenoloL [Tenormin] 50 mg PO QAM 05/05/19 12/30/20 Atorvastatin [Lipitor] 10 mg PO DAILY 08/04/20 12/30/20 DULoxetine HCL [Cymbalta] 60 mg PO DAILY 08/04/20 12/30/20 Magnesium 250 mg PO DAILY 08/04/20 12/30/20 Albuterol Nebulized [Ventolin 2.5 mg INHALATION Q6H PRN 12/26/20 12/30/20 Nebulized] Cholecalciferol [Vitamin D3 (25 25 mcg PO DAILY 12/26/20 12/30/20 Mcg = 1000 Iu)] Previous Rx's Medication Instructions Recorded Apixaban [Eliquis] 2.5 mg PO BID #60 tab 12/31/20 HYDROcodone/APAP 5-325MG [Lynch 1 - 2 tab PO Q6HR PRN #56 tab 12/31/20 5-325] Sennosides-Docusate Sodium 2 each PO HS tab 12/31/20 [Senokot-S] HYDROcodone/APAP 5-325MG [Lynch 1 tab PO Q6HR PRN #14 tab 01/10/21 5-325] traMADol HCl [Ultram] 50 mg PO Q6H PRN #20 tab 01/31/21 Allergies Allergy/AdvReac Type Severity Reaction Status Date / Time Penicillins Allergy Swelling Verified 02/02/21 16:21 silver Allergy blister Verified 02/02/21 16:21 Sulfa (Sulfonamide Allergy Rash/Hives Verified 02/02/21 16:21 Antibiotics) sulfamethoxazole Allergy Rash/Hives Verified 02/02/21 16:21 [From Bactrim] trimethoprim [From Bactrim] Allergy Rash/Hives Verified 02/02/21 16:21 adhesive AdvReac pulls skin Verified 02/02/21 16:21 off gold Allergy blister Uncoded 02/02/21 16:21 metal Allergy blister Uncoded 02/02/21 16:21 Review of Systems ROS Statement: Those systems with pertinent positive or pertinent negative responses have been documented in the HPI. ROS Other: All systems not noted in ROS Statement are negative. Past Medical History Past Medical History: Coronary Artery Disease (CAD), Hyperlipidemia, Hypertension, Osteoarthritis (OA), Pneumonia Additional Past Medical History / Comment(s): Neuropathy in feet, sciatica.seaonal allergies . recent falls History of Any Multi-Drug Resistant Organisms: None Reported Past Surgical History: Heart Catheterization With Stent, Joint Replacement, Orthopedic Surgery Additional Past Surgical History / Comment(s): Bilateral shoulder surgeries, left knee replacement, lt eye cataract surgery, removal of uterine polyps, pilonidal cyst, right knee replacement- dr white, Past Anesthesia/Blood Transfusion Reactions: No Reported Reaction Date of Last Stent Placement:: 1998 Past Psychological History: Anxiety Smoking Status: Former smoker Past Alcohol Use History: Rare Past Drug Use History: None Reported - Past Family History Mother Family Medical History: No Reported History Course Vital Signs 05/30/21 05/30/21 21:28 23:17 Temperature 100.2 F H Pulse Rate 95 100 Respiratory 20 24 Rate Blood Pressure 143/105 155/71 O2 Sat by Pulse 99 90 L Oximetry Medical Decision Making - Lab Data Result diagrams: 05/30/21 22:30 05/30/21 22:30 Lab Results 05/30/21 05/30/21 05/30/21 Range/Units 22:30 22:30 22:30 WBC 6.3 (3.8-10.6) k/uL RBC 4.93 (3.80-5.40) m/uL Hgb 15.0 (11.4-16.0) gm/dL Hct 45.1 (34.0-46.0) % MCV 91.4 (80.0-100.0) fL MCH 30.4 (25.0-35.0) pg MCHC 33.3 (31.0-37.0) g/dL RDW 12.3 (11.5-15.5) % Plt Count 132 L (150-450) k/uL MPV 8.1 Neutrophils % 75 % Lymphocytes % 16 % Monocytes % 7 % Eosinophils % 1 % Basophils % 0 % Neutrophils # 4.7 (1.3-7.7) k/uL Lymphocytes # 1.0 (1.0-4.8) k/uL Monocytes # 0.4 (0-1.0) k/uL Eosinophils # 0.1 (0-0.7) k/uL Basophils # 0.0 (0-0.2) k/uL Sodium 137 (137-145) mmol/L Potassium 3.6 (3.5-5.1) mmol/L Chloride 101 (98-107) mmol/L Carbon Dioxide 25 (22-30) mmol/L Anion Gap 11 mmol/L BUN 15 (7-17) mg/dL Creatinine 0.63 (0.52-1.04) mg/dL Est GFR (CKD-EPI)AfAm >90 (>60 ml/min/1.73 sqM) Est GFR (CKD-EPI)NonAf >90 (>60 ml/min/1.73 sqM) Glucose 136 H (74-99) mg/dL Plasma Lactic Acid Adam (0.7-2.0) mmol/L Calcium 9.4 (8.4-10.2) mg/dL Magnesium 1.8 (1.6-2.3) mg/dL Total Bilirubin 0.7 (0.2-1.3) mg/dL AST 39 H (14-36) U/L ALT 20 (4-34) U/L Alkaline Phosphatase 101 (38-126) U/L Lactate Dehydrogenase 637 H (313-618) U/L Troponin I 0.016 (0.000-0.034) ng/mL C-Reactive Protein 5.8 H (<1.0) mg/dL Total Protein 7.8 (6.3-8.2) g/dL Albumin 4.2 (3.5-5.0) g/dL Coronavirus (PCR) (Not Detectd) 05/30/21 05/30/21 Range/Units 23:03 23:51 WBC (3.8-10.6) k/uL RBC (3.80-5.40) m/uL Hgb (11.4-16.0) gm/dL Hct (34.0-46.0) % MCV (80.0-100.0) fL MCH (25.0-35.0) pg MCHC (31.0-37.0) g/dL RDW (11.5-15.5) % Plt Count (150-450) k/uL MPV Neutrophils % % Lymphocytes % % Monocytes % % Eosinophils % % Basophils % % Neutrophils # (1.3-7.7) k/uL Lymphocytes # (1.0-4.8) k/uL Monocytes # (0-1.0) k/uL Eosinophils # (0-0.7) k/uL Basophils # (0-0.2) k/uL Sodium (137-145) mmol/L Potassium (3.5-5.1) mmol/L Chloride (98-107) mmol/L Carbon Dioxide (22-30) mmol/L Anion Gap mmol/L BUN (7-17) mg/dL Creatinine (0.52-1.04) mg/dL Est GFR (CKD-EPI)AfAm (>60 ml/min/1.73 sqM) Est GFR (CKD-EPI)NonAf (>60 ml/min/1.73 sqM) Glucose (74-99) mg/dL Plasma Lactic Acid Adam 1.3 (0.7-2.0) mmol/L Calcium (8.4-10.2) mg/dL Magnesium (1.6-2.3) mg/dL Total Bilirubin (0.2-1.3) mg/dL AST (14-36) U/L ALT (4-34) U/L Alkaline Phosphatase (38-126) U/L Lactate Dehydrogenase (313-618) U/L Troponin I (0.000-0.034) ng/mL C-Reactive Protein (<1.0) mg/dL Total Protein (6.3-8.2) g/dL Albumin (3.5-5.0) g/dL Coronavirus (PCR) Detected A (Not Detectd) - EKG Data -: EKG Interpreted by Me (EKG shows sinus rhythm 97 AL 170 QRS 150 QTC 518) Disposition Clinical Impression: Altered mental status, Coronavirus infection, Pneumonia due to COVID-19 virus Disposition: ADMITTED IP TO THIS HOSP Condition: Fair Is patient prescribed a controlled substance at d/c from ED?: No Referrals: Daniel Bansal DO [Primary Care Provider] - 1-2 days
[2021-05-30] MEDS ORDERED: ONDANSETRON 4 MG/2 ML VIAL IVP STA (22:02)
[2021-05-30] MEDS ORDERED: DIAZEPAM 5 MG/ML 2 ML INJ IVP STA (22:02)
--- NOTE | 2021-05-30 22:05 | XR ---
EXAMINATION TYPE: XR chest 1V portable DATE OF EXAM: 05/30/2021 COMPARISON: February 17, 2016 HISTORY: Chest pain TECHNIQUE: Single view FINDINGS: There is some coarsening of the interstitial markings. Heart size is normal. There is no ob vious heart failure. There is no pleural effusion. IMPRESSION: There is mild increased interstitial lung markings compared to old exam. No pulmonary con solidation or heart failure.
[2021-05-30] MEDS ORDERED: IBUPROFEN 800 MG TAB PO STA (22:59)
[2021-05-30] MEDS ORDERED: ACETAMINOPHEN TAB 500 MG TAB PO STA (22:59)
[2021-05-30 23:10] LABS: ALT 20 U/L (4-34); AST 39 U/L (14-36); African American GFR (CKD) >90 (>60 ml/min/1.73 sqM); Albumin 4.2 g/dL (3.5-5.0); Alkaline Phosphatase 101 U/L (38-126); Anion Gap 11 mmol/L; Blood Urea Nitrogen 15 mg/dL (7-17); C Reactive Protein 5.8 mg/dL (<1.0); Calcium 9.4 mg/dL (8.4-10.2); Carbon Dioxide 25 mmol/L (22-30); Chloride 101 mmol/L (98-107); Glucose 136 mg/dL (74-99); LDH 637 U/L (313-618); Magnesium 1.8 mg/dL (1.6-2.3); Non-African American GFR(CKD) >90 (>60 ml/min/1.73 sqM); Potassium 3.6 mmol/L (3.5-5.1); Sodium 137 mmol/L (137-145); Total Bilirubin 0.7 mg/dL (0.2-1.3); Total Protein 7.8 g/dL (6.3-8.2)
[2021-05-31 00:12] LABS: Basophils % (A) 0 %; Eosinophils # (A) 0.1 k/uL (0-0.7); Eosinophils % (A) 1 %; HCT 45.1 % (34.0-46.0); Lymphocytes % (A) 16 %; MCH 30.4 pg (25.0-35.0); MCHC 33.3 g/dL (31.0-37.0); MCV 91.4 fL (80.0-100.0); Mean Platelet Volume 8.1; Monocytes # (A) 0.4 k/uL (0-1.0); Monocytes % (A) 7 %; Neutrophils # (A) 4.7 k/uL (1.3-7.7); Neutrophils % (A) 75 %; Platelet Count 132 k/uL (150-450); RBC 4.93 m/uL (3.80-5.40); RDW 12.3 % (11.5-15.5); WBC 6.3 k/uL (3.8-10.6)
[2021-05-31] MEDS ORDERED: ONDANSETRON 4 MG/2 ML VIAL IVP PRN (00:30)
[2021-05-31] MEDS ORDERED: NALOXONE 0.4 MG/ML 1 ML VIAL IV PRN (00:30)
[2021-05-31] MEDS ORDERED: MORPHINE SULFATE 4 MG/ML SYRINGE IV PRN (00:30)
[2021-05-31] MEDS ORDERED: IBUPROFEN 400 MG TAB PO PRN (00:30)
[2021-05-31] MEDS ORDERED: diphenhydrAMINE 50 MG/ML 1 ML VIAL IVP STA (00:30)
[2021-05-31] MEDS ORDERED: ACETAMINOPHEN TAB 325 MG TAB PO PRN (00:30)
[2021-05-31] MEDS ORDERED: LORazepam 2 MG/ML INJ IV STA (00:30)
[2021-05-31 01:46] LABS: INR 1.1 (<1.2); Partial Thromboplastin Time 25.3 sec (22.0-30.0)
[2021-05-31] MEDS: ASCORBIC ACID 500 MG TAB PO SCH ×2 (11:13→11:17)
[2021-05-31] MEDS: CHOLECALCIFEROL 25 MCG (1000 IU) TABLET PO SCH (11:14)
[2021-05-31] MEDS: DEXAMETHASONE SOD PHOSPHATE 10 MG/ML 1 ML VIAL IVP SCH ×2 (11:14→22:07)
[2021-05-31] MEDS: ENOXAPARIN 40 MG/0.4 ML SYRINGE SQ SCH (11:15)
[2021-05-31] MEDS: ZINC SULFATE 220 MG CAP PO SCH (11:17)
[2021-05-31] MEDS ORDERED: [UNRECOGNIZED DRUG - REMARK] BOTH EYES PRN (11:59)
--- NOTE | 2021-05-31 12:03 | P.HPIM ---
History of Present Illness H&P Date: 05/31/21 HISTORY OF PRESENT ILLNESS This is a 71-year-old female of Dr. Bansal with a past medical history of coronary artery disease status post 2 stents, hypertension, hyperlipidemia, mild intermittent asthma, bilateral lower extremity neuropathy, sciatica, seasonal ALLERGIES. Who presented to the emergency room with increased shortness of breath and difficulty breathing. Patient states that she started to feel poorly on Tuesday night with coughing sneezing. However she worsened yesterday with increased shortness of breath aching and chills. Patient states that she had a fever. She did have a cold that and August with 2 doses. Patient unsure who she seen that was positive for comfort prior to her becoming sick. She does live at home with her boyfriend who is also ill. At this time patient in the emergency room resting comfortably in bed with no acute distress. Patient has no complaints or concerns. Patient states that she does continue to have congestion and cough with wheezing. She previously had a knee surgery approximately 4 months ago. Patient is complaining of shortness of breath and cough. Denies any chest pain. No history of CVA or diabetes. REVIEW OF SYSTEMS Constitutional: No fever, reports chills, no night sweats. No weight change. No weakness, fatigue or lethargy. No daytime sleepiness. Reports body ache EENT: No headache. No blurred vision or double vision, no loss of vision. No loss of Hearing, no ringing in the ears, no dizziness. No nasal drainage or congestion. No epistaxis. No sore throat. Lungs: Reports shortness of breath, reports cough, no sputum production. No wheezing. Cardiovascular: No chest pain, no lower extremity edema. No palpitations. No paroxysmal nocturnal dyspnea. No orthopnea. No lightheadedness or dizziness. No syncopal episodes. Abdominal: No abdominal pain. No nausea, vomiting. No diarrhea. No constipation. No bloody or tarry stools.. No loss of appetite. Genitourinary: No dysuria, increased frequency, urgency. No urinary retention. Musculoskeletal: No myalgias. No muscle weakness, no gait dysfunction, no frequent falls. No back pain. No neck pain. Integumentary: No wounds, no lesions. No rash or pruritus. No unusual bruising. No change in hair or nails. Neurologic: No aphasia. No facial droop. No change in mentation. No head injury. No headache. No paralysis. No paresthesia. Psychiatric: No depression. No anxiety. No mood swings. Endocrine: No abnormal blood sugars. SOCIAL HISTORY The patient denies history of tobacco use, alcohol use, illicit drug use. She worked in the past for [email or web address]. She is . FAMILY HISTORY Mother at age 95 from old age. Father at age 68 from a myocardial infarction. Patient has 4 sisters and one from alcohol and drug abuse. Patient has 3 brothers with no major medical problems. Patient has 3 sons ages 49, 41 and 36 with no major medical problems. PHYSICAL EXAMINATION Gen: This is a morbidly obese female patient. Ill appearance, resting in bed in no acute distress HEENT: Head is atraumatic, normocephalic. Pupils equal, round. Sclerae is anicteric. NECK: Supple. No JVD. No lymphadenopathy. No thyromegaly. LUNGS: Increased congestion and wheezing noted on the right more than the left. HEART: Regular rate and rhythm. Systolic murmur. ABDOMEN: Soft. Bowel sounds are present. No masses. No tenderness. EXTREMITIES: No pedal edema. No calf tenderness. Dressing in place to the right knee. NEUROLOGICAL: Patient is awake, alert and oriented x3. Cranial nerves 2 through 12 are grossly intact. ASSESSMENT AND PLAN 1. Hypoxia with COVID-19 pneumonitis. Consult pulmonology, zinc, vitamin C, vitamin D, dexamethasone started. Continue with albuterol. 2. Coronary artery disease status post stents. Continue atenolol 50 mg daily, Lipitor 10 mg daily, aspirin 81 mg daily. 3. Hyperlipidemia. Continue statin. 4. Mild intermittent asthma. Continue albuterol nebulizer treatment every 6 hours as needed. 5. Lower extremity neuropathy. Continue gabapentin 300 mg 3 times daily 6. Seasonal ALLERGIES. Continue ALLERGY drops. 7. Recurrent depression and generalized anxiety disorder. Continue Cymbalta 60 mg daily, Xanax 2 mg at bedtime. 8. Hypertension. Continue atenolol and Vasotec 20 mg twice daily. 9. Insomnia. Patient has seen Dr. Shrestha with plan for sleep study. 10. DVT prophylaxis. Lovenox 40 mg subcu 11. GI prophylaxis. Protonix CODE STATUS: Full code Patient will be admitted for a minimum 2 nights day. DISCHARGE PLAN More than likely home. Impression and plan of care have been directed as dictated by the signing physician. Mitzi Hebert nurse practitioner acting as scribe for signing physician. Past Medical History Past Medical History: Coronary Artery Disease (CAD), Hyperlipidemia, Hypertension, Osteoarthritis (OA), Pneumonia Additional Past Medical History / Comment(s): Neuropathy in feet, sciatica.seaonal allergies History of Any Multi-Drug Resistant Organisms: None Reported Past Surgical History: Heart Catheterization With Stent, Joint Replacement, Orthopedic Surgery Additional Past Surgical History / Comment(s): Bilateral shoulder surgeries, left knee replacement, lt eye cataract surgery, removal of uterine polyps, pilonidal cyst, right knee replacement- dr white, Past Anesthesia/Blood Transfusion Reactions: No Reported Reaction Date of Last Stent Placement:: 1998 Past Psychological History: Anxiety Smoking Status: Never smoker Past Alcohol Use History: Rare Additional Past Alcohol Use History / Comment(s): Quit smoking 10+ yrs ago. Past Drug Use History: None Reported - Past Family History Mother Family Medical History: No Reported History Medications and Allergies Home Medications Medication Instructions Recorded Confirmed Type Aspirin [Adult Low Dose Aspirin EC] 81 mg PO DAILY 06/25/15 05/31/21 History Gabapentin [Neurontin] 300 mg PO TID 06/25/15 05/31/21 History Multivit-Min/FA/Lycopen/Lutein 1 tab PO DAILY 06/25/15 05/31/21 History [Centrum Silver Tablet] Zinc Gluconate [Zinc] 50 mg PO DAILY 01/21/16 05/31/21 History ALPRAZolam [Xanax] 2 mg PO BID PRN 02/24/17 05/31/21 History Calcium Carbonate/Vitamin D3 1 tab PO DAILY 05/05/19 05/31/21 History [Calcium 500-Vit D3 5 Mcg (200 Iu)] Enalapril Maleate [Vasotec] 20 mg PO BID 05/05/19 05/31/21 History Tetrahydrozoline HCl/Zinc Sulf 1 drop BOTH EYES DAILY PRN 05/05/19 05/31/21 History [Visine Allergy Relief Drop] atenoloL [Tenormin] 50 mg PO DAILY 05/05/19 05/31/21 History Atorvastatin [Lipitor] 10 mg PO DAILY 08/04/20 05/31/21 History DULoxetine HCL [Cymbalta] 60 mg PO DAILY 08/04/20 05/31/21 History Magnesium 250 mg PO DAILY 08/04/20 05/31/21 History Cholecalciferol [Vitamin D3 (25 25 mcg PO DAILY 12/26/20 05/31/21 History Mcg = 1000 Iu)] Albuterol Sulfate [Albuterol 2 puff PO RT-Q6H PRN 05/31/21 05/31/21 History Sulfate Hfa] Allergies Allergy/AdvReac Type Severity Reaction Status Date / Time Penicillins Allergy Swelling Verified 05/31/21 11:33 silver Allergy blister Verified 05/31/21 11:33 Sulfa (Sulfonamide Allergy Rash/Hives Verified 05/31/21 11:33 Antibiotics) sulfamethoxazole Allergy Rash/Hives Verified 05/31/21 11:33 [From Bactrim] trimethoprim [From Bactrim] Allergy Rash/Hives Verified 05/31/21 11:33 adhesive AdvReac pulls skin Verified 05/31/21 11:33 off gold Allergy blister Uncoded 05/31/21 11:33 metal Allergy blister Uncoded 05/31/21 11:33 Physical Exam Vitals: Vital Signs Temp Pulse Pulse Resp BP BP Pulse Ox 05/31/21 11:00 98.7 F 72 18 111/84 99 05/31/21 08:00 134 H 17 134/42 96 05/31/21 06:18 97 F L 24 134/82 98 05/31/21 05:12 97.9 F 18 141/63 97 05/31/21 02:00 18 124/70 97 05/31/21 01:36 100.7 F H 16 115/61 97 05/31/21 00:50 99.4 F 20 124/55 97 05/31/21 00:39 99 F 87 24 120/53 96 05/30/21 23:17 100 24 155/71 90 L 05/30/21 21:28 100.2 F H 95 20 143/105 99 Intake and Output 05/30/21 05/31/21 05/31/21 22:59 06:59 14:59 Intake Total 750 Balance 750 Intake: Intake, IV Titration 650 Amount Sodium Chloride 0.9% 1, 650 000 ml @ 130 mls/hr IV . Q7H42M STA Rx#:[id number] Oral 100 Other: # Voids 2 Weight 111.13 kg 111.13 kg Results CBC & Chem 7: 05/30/21 22:30 05/30/21 22:30 Labs: Abnormal Lab Results - Last 24 Hours (Table) 05/30/21 05/30/21 05/30/21 Range/Units 22:30 22:30 23:03 Plt Count 132 L (150-450) k/uL Glucose 136 H (74-99) mg/dL AST 39 H (14-36) U/L Lactate Dehydrogenase 637 H (313-618) U/L C-Reactive Protein 5.8 H (<1.0) mg/dL Coronavirus (PCR) Detected A (Not Detectd)
[2021-05-31] MEDS: ALBUTEROL HFA INHALER INHALATION SCH ×3 (12:59→20:04)
--- NOTE | 2021-05-31 13:07 | P.CNPUL ---
History of Present Illness Consult date: 05/31/21 Reason for consult: dyspnea, pneumonia History of present illness: 71-year-old female patient hospitalized for COVID 19 related pneumonia. The p julia came into the hospital because of worsening shortness of breath. She has multiple medical problems and comorbidities. The patient apparently started up feeling poorly last Tuesday night and she was having coughing and sneezing. Her condition got worse and she developed also diffuse body aches. She also stated that she was having fever. She has completed COVID 19 vaccination back in 2020 and the patient has taken 2 doses of messenger RNA. Her COVID 19 test that came back positive. LDH is mildly elevated at this point in time. Chest x-ray showing diffuse bilateral pulmonary infiltrates and the patient is currently on 2 L of oxygen by nasal cannula. Review of Systems Constitutional: Reports fatigue, Reports fever, Reports lethargy, Reports weakness Eyes: denies as per HPI, denies blurred vision, denies bulging eye, denies decreased vision, denies diplopia, denies discharge, denies dry eye, denies irritation, denies itching, denies pain, denies photophobia, denies loss of peripheral vision, denies loss of vision, denies tunnel vision/blind spots Ears: deny: decreased hearing, ear discharge, earache, tinnitus Ears, nose, mouth and throat: Reports as per HPI Breasts: absent: as per HPI, change in shape, gynecomastia, masses, nipple discharge, pain, skin changes, swelling Cardiovascular: Reports as per HPI Respiratory: Reports cough, Reports dyspnea Gastrointestinal: Reports as per HPI Genitourinary: Reports as per HPI Menstruation: Reports as per HPI Musculoskeletal: Reports as per HPI Musculoskeletal: absent: ankle pain, ankle stiffness, ankle swelling, as per HPI, elbow pain, elbow stiffness, elbow swelling, foot pain, foot stiffness, gold t swelling, hand pain, hand stiffness, hand swelling, hip pain, hip stiffness, hip swelling, knee pain, knee stiffness, knee swelling, shoulder pain, shoulder stiffness, shoulder swelling, wrist pain, wrist stiffness, wrist swelling Integumentary: Reports as per HPI Neurological: Reports as per HPI Psychiatric: Reports as per HPI Endocrine: Reports as per HPI Hematologic/Lymphatic: Reports as per HPI Allergic/Immunologic: Reports as per HPI Past Medical History Past Medical History: Coronary Artery Disease (CAD), Hyperlipidemia, Hypertension, Osteoarthritis (OA), Pneumonia Additional Past Medical History / Comment(s): Neuropathy in feet, sciatica.seaonal allergies History of Any Multi-Drug Resistant Organisms: None Reported Past Surgical History: Heart Catheterization With Stent, Joint Replacement, Orthopedic Surgery Additional Past Surgical History / Comment(s): Bilateral shoulder surgeries, left knee replacement, lt eye cataract surgery, removal of uterine polyps, pilonidal cyst, right knee replacement- dr white, Past Anesthesia/Blood Transfusion Reactions: No Reported Reaction Date of Last Stent Placement:: 1998 Past Psychological History: Anxiety Smoking Status: Never smoker Past Alcohol Use History: Rare Additional Past Alcohol Use History / Comment(s): Quit smoking 10+ yrs ago. Past Drug Use History: None Reported - Past Family History Mother Family Medical History: No Reported History Medications and Allergies Home Medications Medication Instructions Recorded Confirmed Type Aspirin [Adult Low Dose Aspirin EC] 81 mg PO DAILY 06/25/15 05/31/21 History Gabapentin [Neurontin] 300 mg PO TID 06/25/15 05/31/21 History Multivit-Min/FA/Lycopen/Lutein 1 tab PO DAILY 06/25/15 05/31/21 History [Centrum Silver Tablet] Zinc Gluconate [Zinc] 50 mg PO DAILY 01/21/16 05/31/21 History ALPRAZolam [Xanax] 2 mg PO BID PRN 02/24/17 05/31/21 History Calcium Carbonate/Vitamin D3 1 tab PO DAILY 05/05/19 05/31/21 History [Calcium 500-Vit D3 5 Mcg (200 Iu)] Enalapril Maleate [Vasotec] 20 mg PO BID 05/05/19 05/31/21 History Tetrahydrozoline HCl/Zinc Sulf 1 drop BOTH EYES DAILY PRN 05/05/19 05/31/21 History [Visine Allergy Relief Drop] atenoloL [Tenormin] 50 mg PO DAILY 05/05/19 05/31/21 History Atorvastatin [Lipitor] 10 mg PO DAILY 08/04/20 05/31/21 History DULoxetine HCL [Cymbalta] 60 mg PO DAILY 08/04/20 05/31/21 History Magnesium 250 mg PO DAILY 08/04/20 05/31/21 History Cholecalciferol [Vitamin D3 (25 25 mcg PO DAILY 12/26/20 05/31/21 History Mcg = 1000 Iu)] Albuterol Sulfate [Albuterol 2 puff PO RT-Q6H PRN 05/31/21 05/31/21 History Sulfate Hfa] Allergies Allergy/AdvReac Type Severity Reaction Status Date / Time Penicillins Allergy Swelling Verified 05/31/21 11:33 silver Allergy blister Verified 05/31/21 11:33 Sulfa (Sulfonamide Allergy Rash/Hives Verified 05/31/21 11:33 Antibiotics) sulfamethoxazole Allergy Rash/Hives Verified 05/31/21 11:33 [From Bactrim] trimethoprim [From Bactrim] Allergy Rash/Hives Verified 05/31/21 11:33 adhesive AdvReac pulls skin Verified 05/31/21 11:33 off gold Allergy blister Uncoded 05/31/21 11:33 metal Allergy blister Uncoded 05/31/21 11:33 Physical Exam Vitals: Vital Signs Temp Pulse Pulse Resp BP BP Pulse Ox 05/31/21 11:00 98.7 F 72 18 111/84 99 05/31/21 08:00 134 H 17 134/42 96 05/31/21 06:18 97 F L 24 134/82 98 05/31/21 05:12 97.9 F 18 141/63 97 05/31/21 02:00 18 124/70 97 05/31/21 01:36 100.7 F H 16 115/61 97 05/31/21 00:50 99.4 F 20 124/55 97 05/31/21 00:39 99 F 87 24 120/53 96 05/30/21 23:17 100 24 155/71 90 L 05/30/21 21:28 100.2 F H 95 20 143/105 99 Intake and Output 05/30/21 05/31/21 05/31/21 22:59 06:59 14:59 Intake Total 750 Balance 750 Intake: Intake, IV Titration 650 Amount Sodium Chloride 0.9% 1, 650 000 ml @ 130 mls/hr IV . Q7H42M STA Rx#:[id number] Oral 100 Other: # Voids 2 Weight 111.13 kg 111.13 kg Gen: This is a morbidly obese female patient. Ill appearance, resting in bed in no acute distress Head exam was generally normal. There was no scleral icterus or corneal arcus. Mucous membranes were moist. HEENT: Head is atraumatic, normocephalic. Pupils equal, round. Sclerae is anicteric. NECK: Supple. No JVD. No lymphadenopathy. No thyromegaly. LUNGS: Increased congestion and wheezing noted on the right more than the left. HEART: Regular rate and rhythm. Systolic murmur. ABDOMEN: Soft. Bowel sounds are present. No masses. No tenderness. EXTREMITIES: No pedal edema. No calf tenderness. Dressing in place to the right knee. NEUROLOGICAL: Patient is awake, alert and oriented x3. Cranial nerves 2 through 12 are grossly intact. Examination of the skin revealed no evidence of significant rashes, suspicious appearing nevi or other concerning lesions. Results - Laboratory Findings CBC and BMP: 05/30/21 22:30 05/30/21 22:30 PT/INR, D-dimer PT 12.0 sec (9.0-12.0) 05/31/21 01:06 INR 1.1 (<1.2) 05/31/21 01:06 Abnormal lab findings: Abnormal Labs 05/30/21 05/30/21 05/30/21 22:30 22:30 23:03 Plt Count 132 L Glucose 136 H AST 39 H Lactate Dehydrogenase 637 H C-Reactive Protein 5.8 H Coronavirus (PCR) Detected A - Diagnostic Findings Chest x-ray: image reviewed Assessment and Plan Plan: 1 acute COVID 19 related pneumonia in a 71-year-old female patient who has been vaccinated with messenger on a vaccine back in August 2020. The patient is coming in with 48 hours symptoms of increased dyspnea cough and some mild hypox emia currently on 2 L approximately nasal cannula. Chest x-ray is consistent with bilateral pneumonia, interstitial, likely secondary to the Vitas 2 mild elevation of the primary marker secondary to above 3 morbid obesity with a BMI of 42 4 coronary artery disease 5 hypertension 6 hyperlipidemia 7 peripheral neuropathy 8 osteoarthritis of the patient has undergone bilateral knee replacement Plan We'll supplement this patient with O2 to maintain a saturation above 90% currently on 2 L We'll start the patient Decadron 6 mg IV every 24 hours We'll start the patient on Remdesivir per protocol We'll continue to treatment with multivitamins regarding COVID 19 Resume home medications Lovenox for DVT prophylaxis 40 mg subcu Monitor inflammatory markers. Obtain a baseline d-dimer. Obtain a baseline pro-calcitonin level. We'll continue to follow
[2021-05-31] MEDS ORDERED: REMDESIVIR 200 MG in SODIUM CHLORIDE 0.9% 250 ML IVPB ONE (13:09)
[2021-05-31] MEDS ORDERED: ATORVASTATIN 10 MG TAB PO SCH (17:00)
[2021-05-31] MEDS: INSULIN ASPART (NovoLOG) 100 UNIT/ML VIAL SQ SCH ×2 (17:35→22:06)
[2021-05-31] MEDS: ASPIRIN 81 MG PO SCH (17:45)
[2021-05-31] MEDS: DULoxetine HCL 60 MG CAPSULE.DR PO SCH (17:45)
[2021-05-31] MEDS: atenoloL 50 MG TAB PO SCH (17:45)
[2021-05-31] MEDS: lisinopriL 20 MG TAB PO SCH (17:45)
[2021-05-31] MEDS: GABAPENTIN 300 MG CAP PO SCH ×2 (17:45→22:07)
[2021-05-31 21:10] LABS: Glucose,Whole Blood 149 mg/dL (75-99)
[2021-05-31] MEDS: ALPRAZolam 1 MG TAB PO PRN (22:06)
[2021-05-31] MEDS: ATORVASTATIN 10 MG TAB PO SCH (22:09)
[2021-06-01] MEDS: lisinopriL 20 MG TAB PO SCH ×3 (01:02→20:37)
[2021-06-01 07:28] LABS: Glucose,Whole Blood 142 mg/dL (75-99)
[2021-06-01 09:00] LABS: ALT 21 U/L (4-34); AST 32 U/L (14-36); African American GFR (CKD) >90 (>60 ml/min/1.73 sqM); Albumin 3.7 g/dL (3.5-5.0); Albumin/Globulin Ratio 1.1; Alkaline Phosphatase 74 U/L (38-126); Anion Gap 9 mmol/L; Blood Urea Nitrogen 17 mg/dL (7-17); Calcium 9.2 mg/dL (8.4-10.2); Carbon Dioxide 30 mmol/L (22-30); Chloride 103 mmol/L (98-107); Globulin 3.3 g/dL; Glucose 217 mg/dL (74-99); LDH 472 U/L (313-618); Non-African American GFR(CKD) >90 (>60 ml/min/1.73 sqM); Sodium 142 mmol/L (137-145); Total Bilirubin 0.7 mg/dL (0.2-1.3)
[2021-06-01] MEDS: CHOLECALCIFEROL 25 MCG (1000 IU) TABLET PO SCH (09:09)
[2021-06-01] MEDS: ZINC SULFATE 220 MG CAP PO SCH (09:09)
[2021-06-01] MEDS: atenoloL 50 MG TAB PO SCH (09:09)
[2021-06-01] MEDS: MAGNESIUM OXIDE 400 MG TAB PO SCH (09:09)
[2021-06-01] MEDS: GABAPENTIN 300 MG CAP PO SCH ×3 (09:09→21:50)
[2021-06-01] MEDS: DULoxetine HCL 60 MG CAPSULE.DR PO SCH (09:09)
[2021-06-01] MEDS: INSULIN ASPART (NovoLOG) 100 UNIT/ML VIAL SQ SCH ×4 (09:09→20:53)
[2021-06-01] MEDS: ASCORBIC ACID 500 MG TAB PO SCH (09:09)
[2021-06-01] MEDS: ASPIRIN 81 MG PO SCH (09:09)
[2021-06-01] MEDS: PANTOPRAZOLE 40 MG TABLET PO SCH (09:09)
[2021-06-01] MEDS: REMDESIVIR 100 MG in SODIUM CHLORIDE 0.9% 250 ML IVPB SCH (09:10)
[2021-06-01] MEDS: DEXAMETHASONE SOD PHOSPHATE 10 MG/ML 1 ML VIAL IVP SCH ×2 (09:10→20:36)
[2021-06-01] MEDS: ENOXAPARIN 40 MG/0.4 ML SYRINGE SQ SCH (09:10)
[2021-06-01] MEDS: ALBUTEROL HFA INHALER INHALATION SCH ×4 (09:44→21:07)
[2021-06-01 11:35] LABS: Glucose,Whole Blood 112 mg/dL (75-99)
[2021-06-01 13:12] LABS: Basophils # (A) 0.01 X 10*3/uL (0.00-0.10); Basophils % (A) 0.2 %; Eosinophils # (A) 0 X 10*3/uL (0.04-0.35); Eosinophils % (A) 0 %; HCT 41.6 % (37.2-46.3); HGB 13.4 g/dL (12.0-15.0); Lymphocytes # (A) 0.92 X 10*3/uL (0.90-5.00); Lymphocytes % (A) 22.8 %; MCH 29.8 pg (27.0-32.0); MCHC 32.2 g/dL (32.0-37.0); MCV 92.7 fL (80.0-97.0); Mean Platelet Volume 10.7 fL (9.5-12.2); Monocytes # (A) 0.08 X 10*3/uL (0.20-1.00); Neutrophils % (A) 74.5 %; Platelet Count 156 X 10*3/uL (140-440); RBC 4.49 X 10*6/uL (4.10-5.20); RDW 12.4 % (11.5-14.5); WBC 4.03 X 10*3/uL (4.50-10.00)
--- NOTE | 2021-06-01 15:54 | P.PN ---
Subjective Progress Note Date: 06/01/21 HISTORY OF PRESENT ILLNESS This is a 71-year-old female of Dr. Bansal with a past medical history of coronary artery disease status post 2 stents, hypertension, hyperlipidemia, mild intermittent asthma, bilateral lower extremity neuropathy, sciatica, seasonal ALLERGIES. Who presented to the emergency room with increased shortness of breath and difficulty breathing. Patient states that she started to feel poorly on Tuesday night with coughing sneezing. However she worsened yesterday with increased shortness of breath aching and chills. Patient states that she had a fever. She did have a cold that and August with 2 doses. Patient unsure who she seen that was positive for comfort prior to her becoming sick. She does live at home with her boyfriend who is also ill. At this time patient in the emergency room resting comfortably in bed with no acute distress. Patient has no complaints or concerns. Patient states that she does continue to have congestion and cough with wheezing. She previously had a knee surgery approximately 4 months ago. Patient is complaining of shortness of breath and cough. Denies any chest pain. No history of CVA or diabetes. 06/01: Patient states that she is feeling much better today, she is off oxygen. Repeat blood work reveals WBC of or 0.0. Creatinine 0.51. Blood sugars running between 112 149. C-reactive protein 5.6, LDH 472. Patient is followed by pulmonary medicine. REVIEW OF SYSTEMS Constitutional: No fever, reports chills, no night sweats. No weight change. No weakness, fatigue or lethargy. No daytime sleepiness. Reports body ache EENT: No headache. No blurred vision or double vision, no loss of vision. No loss of Hearing, no ringing in the ears, no dizziness. No nasal drainage or congestion. No epistaxis. No sore throat. Lungs: Reports shortness of breath improved, reports cough, no sputum production. No wheezing. Cardiovascular: No chest pain, no lower extremity edema. No palpitations. No paroxysmal nocturnal dyspnea. No orthopnea. No lightheadedness or dizziness. No syncopal episodes. Abdominal: No abdominal pain. No nausea, vomiting. No diarrhea. No constipation. No bloody or tarry stools.. No loss of appetite. Genitourinary: No dysuria, increased frequency, urgency. No urinary retention. Musculoskeletal: No myalgias. No muscle weakness, no gait dysfunction, no frequent falls. No back pain. No neck pain. Integumentary: No wounds, no lesions. No rash or pruritus. No unusual bruising. No change in hair or nails. Neurologic: No aphasia. No facial droop. No change in mentation. No head injury. No headache. No paralysis. No paresthesia. Psychiatric: No depression. No anxiety. No mood swings. Endocrine: No abnormal blood sugars. PHYSICAL EXAMINATION Gen: This is a morbidly obese female patient. Ill appearance, resting in bed in no acute distress HEENT: Head is atraumatic, normocephalic. Pupils equal, round. Sclerae is anicteric. NECK: Supple. No JVD. No lymphadenopathy. No thyromegaly. LUNGS: Increased congestion and wheezing noted on the right more than the left. HEART: Regular rate and rhythm. Systolic murmur. ABDOMEN: Soft. Bowel sounds are present. No masses. No tenderness. EXTREMITIES: No pedal edema. No calf tenderness. Dressing in place to the right knee. NEUROLOGICAL: Patient is awake, alert and oriented x3. Cranial nerves 2 through 12 are grossly intact. ASSESSMENT AND PLAN 1. Acute hypoxic respiratory failure secondary to COVID-19 pneumonitis. Consult pulmonology appreciated, continue zinc, vitamin C, vitamin D, dexamethasone, Lovenox, albuterol. Patient is off oxygen therapy 2. Coronary artery disease status post stents. Continue atenolol 50 mg daily, Lipitor 10 mg daily, aspirin 81 mg daily. 3. Hyperlipidemia. Continue statin. 4. Mild intermittent asthma. Continue albuterol nebulizer treatment every 6 hours as needed. 5. Lower extremity neuropathy. Continue gabapentin 300 mg 3 times daily 6. Seasonal ALLERGIES. Continue ALLERGY drops. 7. Recurrent depression and generalized anxiety disorder. Continue Cymbalta 60 mg daily, Xanax 2 mg at bedtime. 8. Hypertension. Continue atenolol and Vasotec 20 mg twice daily. 9. Insomnia. Patient has seen Dr. Shrestha with plan for sleep study. 10. DVT prophylaxis. Lovenox 40 mg subcu 11. GI prophylaxis. Protonix CODE STATUS: Full code DISCHARGE PLAN Probably home on Tuesday or Tuesday. Impression and plan of care have been directed as dictated by the signing physician. Jackie Devries nurse practitioner acting as scribe for signing physician. Objective - Vital Signs Vital signs: Vital Signs Temp 98.2 F 06/01/21 09:18 Pulse 81 06/01/21 09:18 Resp 17 06/01/21 09:18 BP 136/73 06/01/21 09:18 Pulse Ox 94 L 06/01/21 09:18 Intake & Output 05/31/21 06/01/21 06/01/21 18:59 06:59 18:59 Other: # Voids 2 - Labs CBC & Chem 7: 06/01/21 08:27 06/01/21 08:27 Labs: Abnormal Lab Results - Last 24 Hours (Table) 05/31/21 06/01/21 06/01/21 Range/Units 21:08 06:49 08:27 Creatinine 0.51 L (0.52-1.04) mg/dL Glucose 217 H (74-99) mg/dL POC Glucose (mg/dL) 149 H 142 H (75-99) mg/dL
[2021-06-01 17:03] LABS: Glucose,Whole Blood 138 mg/dL (75-99)
--- NOTE | 2021-06-01 17:11 | P.PN ---
Subjective Progress Note Date: 06/01/21 Principal diagnosis: Dyspnea, hypoxia, COVID-19 pneumonia 71-year-old female patient hospitalized for COVID 19 related pneumonia. The patient came into the hospital because of worsening shortness of breath. She has multiple medical problems and comorbidities. The patient apparently started up feeling poorly last Tuesday night and she was having coughing and sneezing. Her condition got worse and she developed also diffuse body aches. She also stated that she was having fever. She has completed COVID 19 vaccination back in August 2020 and the patient has taken 2 doses of messenger RNA. Her COVID 19 test that came back positive. LDH is mildly elevated at this point in time. Chest x-ray showing diffuse bilateral pulmonary infiltrates and the patient is currently on 2 L of oxygen by nasal cannula. On 06/01/2021 patient seen in follow-up on medical surgical floor, she is resting comfortably in bed, in no distress, today is day 2 of Remdesivir treatment, she is also on Decadron 6 mg twice daily. She is on IV hydration with point and will sign a rate of 1:30 ML per hour, overall she states she is feeling better, no acute events overnight, her marrow pulse ox 94%, no fever or chills. Blood pressure stable, no altered mentation, no couplets or chest pain. His labs have been noted, with blood cell count is 4.03, hemoglobin is 13.4, lymphocyte, 0.08, electrodes and renal profile are unremarkable. CRP was 5.6, LDH was 472. Objective - Vital Signs Vital signs: Vital Signs Temp 98.4 F 06/01/21 14:51 Pulse 65 06/01/21 14:51 Resp 18 06/01/21 14:51 BP 136/77 06/01/21 14:51 Pulse Ox 94 L 06/01/21 14:51 Intake & Output 05/31/21 06/01/21 06/01/21 18:59 06:59 18:59 Other: # Voids 2 2 - Exam GENERAL EXAM: Alert, very pleasant, 71-year-old white female, on room air, with a pulse ox of 94% comfortable in no apparent distress. HEAD: Normocephalic/atraumatic. EYES: Normal reaction of pupils, equal size. Conjunctiva pink, sclera white. NOSE: Clear with pink turbinates. THROAT: No erythema or exudates. NECK: No masses, no JVD, no thyroid enlargement, no adenopathy. CHEST: No chest wall deformity. Symmetrical expansion. LUNGS: Equal air entry with bibasilar crackles CVS: Regular rate and rhythm, normal S1 and S2, no gallops, no murmurs, no rubs ABDOMEN: Soft, nontender. No hepatosplenomegaly, normal bowel sounds, no guarding or rigidity. EXTREMITIES: No clubbing, no edema, no cyanosis, 2+ pulses and upper and lower extremities. MUSCULOSKELETAL: Muscle strength and tone normal. SPINE: No scoliosis or deformity SKIN: No rashes CENTRAL NERVOUS SYSTEM: Alert and oriented -3. No focal deficits, tone is normal in all 4 extremities. PSYCHIATRIC: Alert and oriented -3. Appropriate affect. Intact judgment and insight. - Labs CBC & Chem 7: 06/01/21 08:27 06/01/21 08:27 Labs: Abnormal Lab Results - Last 24 Hours (Table) 05/31/21 06/01/21 06/01/21 Range/Units 21:08 06:49 08:27 WBC 4.03 L (4.50-10.00) X 10*3/uL Monocytes # 0.08 L (0.20-1.00) X 10*3/uL Eosinophils # 0 L (0.04-0.35) X 10*3/uL Creatinine (0.52-1.04) mg/dL Glucose (74-99) mg/dL POC Glucose (mg/dL) 149 H 142 H (75-99) mg/dL C-Reactive Protein (<1.0) mg/dL 06/01/21 06/01/21 06/01/21 Range/Units 08:27 08:27 11:32 WBC (4.50-10.00) X 10*3/uL Monocytes # (0.20-1.00) X 10*3/uL Eosinophils # (0.04-0.35) X 10*3/uL Creatinine 0.51 L (0.52-1.04) mg/dL Glucose 217 H (74-99) mg/dL POC Glucose (mg/dL) 112 H (75-99) mg/dL C-Reactive Protein 5.6 H (<1.0) mg/dL 06/01/21 Range/Units 17:01 WBC (4.50-10.00) X 10*3/uL Monocytes # (0.20-1.00) X 10*3/uL Eosinophils # (0.04-0.35) X 10*3/uL Creatinine (0.52-1.04) mg/dL Glucose (74-99) mg/dL POC Glucose (mg/dL) 138 H (75-99) mg/dL C-Reactive Protein (<1.0) mg/dL Assessment and Plan Plan: Assessment: #1. Acute COVID-19 related pneumonia. Patient has completed her vaccination back in favor 2020. Patient presented within 48 hours of symptom onset with increased dyspnea, cough and mild hypoxia, currently on room air, but initially was on 2 L of oxygen. Chest x-ray showed a little pneumonia, interstitial. Patient has been started on Remdesivir on 05/31/2021 and Decadron #2. Mild elevation of inflammatory markers #3. Morbid obesity with BMI 42 #4. Coronary artery disease #5. Hypertension #6. Hyperlipidemia #7. Peripheral neuropathy #8. Osteoarthritis, with history of bilateral knee replacement Plan: Continue current medical treatment Continue Decadron, Patient is on day 2 of Remdesivir Continue Lovenox Today's labs have been noted Clinically patient slightly improved, she is off the supplemental oxygen We'll continue to follow, if remains stable and continues to improve may consider stopping the Remdesivir early as long as she is improving I performed a history & physical examination of the patient and discussed their management with my nurse practitioner, Tammi Patino. I reviewed the nurse practitioner's note and agree with the documented findings and plan of care. Lung sounds are positive for diminished breath sounds with bibasilar crackles throughout the lung sanchez. The findings and the impression was discussed with the patient. I attest to the documentation by the nurse practitioner. Time with Patient: Less than 30
[2021-06-01 19:55] LABS: Glucose,Whole Blood 121 mg/dL (75-99)
[2021-06-01] MEDS: ATORVASTATIN 10 MG TAB PO SCH (20:37)
[2021-06-01] MEDS: ALPRAZolam 1 MG TAB PO PRN (20:37)
[2021-06-02 07:11] LABS: Glucose,Whole Blood 123 mg/dL (75-99)
[2021-06-02] MEDS: INSULIN ASPART (NovoLOG) 100 UNIT/ML VIAL SQ SCH ×2 (07:31→11:29)
[2021-06-02] MEDS: DULoxetine HCL 60 MG CAPSULE.DR PO SCH (07:47)
[2021-06-02] MEDS: GABAPENTIN 300 MG CAP PO SCH (07:47)
[2021-06-02] MEDS: DEXAMETHASONE SOD PHOSPHATE 10 MG/ML 1 ML VIAL IVP SCH (07:47)
[2021-06-02] MEDS: ENOXAPARIN 40 MG/0.4 ML SYRINGE SQ SCH (07:47)
[2021-06-02] MEDS: PANTOPRAZOLE 40 MG TABLET PO SCH (07:47)
[2021-06-02] MEDS: REMDESIVIR 100 MG in SODIUM CHLORIDE 0.9% 250 ML IVPB SCH (07:47)
[2021-06-02] MEDS: ASPIRIN 81 MG PO SCH (07:48)
[2021-06-02] MEDS: ASCORBIC ACID 500 MG TAB PO SCH (07:48)
[2021-06-02] MEDS: CHOLECALCIFEROL 25 MCG (1000 IU) TABLET PO SCH (07:48)
[2021-06-02] MEDS: ZINC SULFATE 220 MG CAP PO SCH (07:48)
[2021-06-02] MEDS: MAGNESIUM OXIDE 400 MG TAB PO SCH (07:48)
[2021-06-02] MEDS: lisinopriL 20 MG TAB PO SCH (07:48)
[2021-06-02] MEDS: atenoloL 50 MG TAB PO SCH (07:48)
[2021-06-02] MEDS: ALBUTEROL HFA INHALER INHALATION SCH ×2 (09:29→12:19)
--- NOTE | 2021-06-02 10:11 | P.DS ---
Providers Date of admission: 05/31/21 00:30 Expected date of discharge: 06/02/21 Attending physician: Camden De Jesus Consults: 05/31/21 09:04 Consult Physician Routine Consulting Provider: Elaine Shrestha Consult Reason/Comments: Covid+ Do you want consulting provider notified?: Yes Primary care physician: Daniel SagastumeRolf [facility] Course: HISTORY OF PRESENT ILLNESS This is a 71-year-old female of Dr. Bansal with a past medical history of coronary artery disease status post 2 stents, hypertension, hyperlipidemia, mild intermittent asthma, bilateral lower extremity neuropathy, sciatica, seasonal ALLERGIES. Who presented to the emergency room with increased shortness of breath and difficulty breathing. Patient states that she started to feel poorly on Tuesday night with coughing sneezing. However she worsened yesterday with increased shortness of breath aching and chills. Patient states that she had a fever. She did have a cold that and August with 2 doses. Patient unsure who she seen that was positive for comfort prior to her becoming sick. She does live at home with her boyfriend who is also ill. At this time patient in the emergency room resting comfortably in bed with no acute distress. Patient has no complaints or concerns. Patient states that she does continue to have congestion and cough with wheezing. She previously had a knee surgery approximately 4 months ago. Patient is complaining of shortness of breath and cough. Denies any chest pain. No history of CVA or diabetes. 06/01: Patient states that she is feeling much better today, she is off oxygen. Repeat blood work reveals WBC of or 0.0. Creatinine 0.51. Blood sugars running between 112 149. C-reactive protein 5.6, LDH 472. Patient is followed by pulmonary medicine. 06/02: Patient is currently not requiring oxygen with pulse ox at 96%. She's been afebrile. Patient has completed 3 doses of Remdesivir. Patient is cleared by pulmonary medicine. Patient will be discharged home today in stable condition. DISCHARGE DIAGNOSES 1. Acute hypoxic respiratory failure secondary to COVID-19 pneumonitis. 2. Coronary artery disease status post stents. 3. Hyperlipidemia. 4. Mild intermittent asthma. 5. Lower extremity neuropathy. 6. Seasonal ALLERGIES. 7. Recurrent depression and generalized anxiety disorder. 8. Hypertension. 9. Insomnia. DISCHARGE PLAN Home Greater than 35 minutes was utilized and coordinating patient's discharge. Impression and plan of care have been directed as dictated by the signing physician. Jackie Devries nurse practitioner acting as scribe for signing ph ysician. Patient Condition at Discharge: Stable Plan - Discharge Summary Discharge Rx Participant: No New Discharge Prescriptions: New Ascorbic Acid [Vitamin C] 500 mg PO DAILY tab Dexamethasone [Decadron] 6 mg PO DAILY #5 tablet Pantoprazole [Protonix] 40 mg PO AC-BRKFST #5 tab Continue Gabapentin [Neurontin] 300 mg PO TID Multivit-Min/FA/Lycopen/Lutein [Centrum Silver Tablet] 1 tab PO DAILY Aspirin [Adult Low Dose Aspirin EC] 81 mg PO DAILY Zinc Gluconate [Zinc] 50 mg PO DAILY ALPRAZolam [Xanax] 2 mg PO BID PRN PRN Reason: Anxiety Tetrahydrozoline HCl/Zinc Sulf [Visine Allergy Relief Drop] 1 drop BOTH EYES DAILY PRN PRN Reason: ITCHY EYES Enalapril Maleate [Vasotec] 20 mg PO BID Calcium Carbonate/Vitamin D3 [Calcium 500-Vit D3 5 Mcg (200 Iu)] 1 tab PO DAILY atenoloL [Tenormin] 50 mg PO DAILY Magnesium 250 mg PO DAILY DULoxetine HCL [Cymbalta] 60 mg PO DAILY Atorvastatin [Lipitor] 10 mg PO DAILY Albuterol Sulfate [Albuterol Sulfate Hfa] 2 puff PO RT-Q6H PRN PRN Reason: Shortness Of Breath Cholecalciferol [Vitamin D3 (25 Mcg = 1000 Iu)] 25 mcg PO DAILY Discharge Medication List Aspirin [Adult Low Dose Aspirin EC] 81 mg PO DAILY 06/25/15 [History] Gabapentin [Neurontin] 300 mg PO TID 06/25/15 [History] Multivit-Min/FA/Lycopen/Lutein [Centrum Silver Tablet] 1 tab PO DAILY 06/25/15 [History] Zinc Gluconate [Zinc] 50 mg PO DAILY 01/21/16 [History] ALPRAZolam [Xanax] 2 mg PO BID PRN 02/24/17 [History] Calcium Carbonate/Vitamin D3 [Calcium 500-Vit D3 5 Mcg (200 Iu)] 1 tab PO DAILY 05/05/19 [History] Enalapril Maleate [Vasotec] 20 mg PO BID 05/05/19 [History] Tetrahydrozoline HCl/Zinc Sulf [Visine Allergy Relief Drop] 1 drop BOTH EYES DAILY PRN 05/05/19 [History] atenoloL [Tenormin] 50 mg PO DAILY 05/05/19 [History] Atorvastatin [Lipitor] 10 mg PO DAILY 08/04/20 [History] DULoxetine HCL [Cymbalta] 60 mg PO DAILY 08/04/20 [History] Magnesium 250 mg PO DAILY 08/04/20 [History] Cholecalciferol [Vitamin D3 (25 Mcg = 1000 Iu)] 25 mcg PO DAILY 12/26/20 [History] Albuterol Sulfate [Albuterol Sulfate Hfa] 2 puff PO RT-Q6H PRN 05/31/21 [History] Ascorbic Acid [Vitamin C] 500 mg PO DAILY tab 06/02/21 [Rx] Dexamethasone [Decadron] 6 mg PO DAILY #5 tablet 06/02/21 [Rx] Pantoprazole [Protonix] 40 mg PO AC-BRKFST #5 tab 06/02/21 [Rx] Follow up Appointment(s)/Referral(s): Erica Peña MD [STAFF PHYSICIAN] - 07/07/21 2:30 pm (with Kathy Rde) Daniel Bansal DO [Primary Care Provider] - 1 Week (Office not answering Please call to make appointment ) Patient Instructions/Handouts: Dexamethasone (By mouth), Coronavirus Disease 2019 (COVID-19) Discharge Disposition: HOME SELF-CARE
[2021-06-02 10:34] VITALS: BP 162/76; PULSE 63; RESP 18; TEMP 98.1
--- NOTE | 2021-06-02 11:27 | P.PN ---
Subjective Progress Note Date: 06/02/21 Principal diagnosis: Dyspnea, hypoxia, COVID-19 pneumonia 71-year-old female patient hospitalized for COVID 19 related pneumonia. The patient came into the hospital because of worsening shortness of breath. She has multiple medical problems and comorbidities. The patient apparently started up feeling poorly last Tuesday night and she was having coughing and sneezing. Her condition got worse and she developed also diffuse body aches. She also stated that she was having fever. She has completed COVID 19 vaccination back in August 2020 and the patient has taken 2 doses of messenger RNA. Her COVID 19 test that came back positive. LDH is mildly elevated at this point in time. Chest x-ray showing diffuse bilateral pulmonary infiltrates and the patient is currently on 2 L of oxygen by nasal cannula. On 06/01/2021 patient seen in follow-up on medical surgical floor, she is resting comfortably in bed, in no distress, today is day 2 of Remdesivir treatment, she is also on Decadron 6 mg twice daily. She is on IV hydration with point and will sign a rate of 1:30 ML per hour, overall she states she is feeling better, no acute events overnight, her marrow pulse ox 94%, no fever or chills. Blood pressure stable, no altered mentation, no couplets or chest pain. His labs have been noted, with blood cell count is 4.03, hemoglobin is 13.4, lymphocyte, 0.08, electrodes and renal profile are unremarkable. CRP was 5.6, LDH was 472. On 06/02/2021 patient is seen in follow-up on medical surgical floor. Patient is resting comfortably in bed, she is currently on room air, 96%, vital signs have been stable, no fever or chills, she has completed her third dose of Remdesivir today, she continues on Decadron and COVID-19 vitamins, she's had no acute events overnight, overall she states she is feeling much better, no chest discomfort, there is no cough, no fever or chills. No nausea vomiting or diarrhea. no acute events overnight. She is anxious to go home Objective - Vital Signs Vital signs: Vital Signs Temp 98.1 F 06/02/21 10:00 Pulse 63 06/02/21 10:00 Resp 18 06/02/21 10:00 BP 162/76 06/02/21 10:00 Pulse Ox 96 06/02/21 10:00 Intake & Output 06/01/21 06/02/21 06/02/21 18:59 06:59 18:59 Intake Total 160 250 Balance 160 250 Intake: Intake, IV Titration 250 Amount Remdesivir 100 mg In 250 Sodium Chloride 0.9% 250 ml @ 250 mls/hr IVPB DAILY VIKY Rx#:[id number] Oral 160 Other: Voiding Method Toilet # Voids 2 2 - Exam GENERAL EXAM: Alert, very pleasant, 71-year-old white female, on room air, with a pulse ox of 94% comfortable in no apparent distress. HEAD: Normocephalic/atraumatic. EYES: Normal reaction of pupils, equal size. Conjunctiva pink, sclera white. NOSE: Clear with pink turbinates. THROAT: No erythema or exudates. NECK: No masses, no JVD, no thyroid enlargement, no adenopathy. CHEST: No chest wall deformity. Symmetrical expansion. LUNGS: Equal air entry with very minimal end expiratory wheezing on forced exhale maneuver CVS: Regular rate and rhythm, normal S1 and S2, no gallops, no murmurs, no rubs ABDOMEN: Soft, nontender. No hepatosplenomegaly, normal bowel sounds, no guarding or rigidity. EXTREMITIES: No clubbing, no edema, no cyanosis, 2+ pulses and upper and lower extremities. MUSCULOSKELETAL: Muscle strength and tone normal. SPINE: No scoliosis or deformity SKIN: No rashes CENTRAL NERVOUS SYSTEM: Alert and oriented -3. No focal deficits, tone is normal in all 4 extremities. PSYCHIATRIC: Alert and oriented -3. Appropriate affect. Intact judgment and insight. - Labs CBC & Chem 7: 06/01/21 08:27 06/01/21 08:27 Labs: Abnormal Lab Results - Last 24 Hours (Table) 06/01/21 06/01/21 06/01/21 Range/Units 08:27 08:27 11:32 WBC 4.03 L (4.50-10.00) X 10*3/uL Monocytes # 0.08 L (0.20-1.00) X 10*3/uL Eosinophils # 0 L (0.04-0.35) X 10*3/uL POC Glucose (mg/dL) 112 H (75-99) mg/dL C-Reactive Protein 5.6 H (<1.0) mg/dL 06/01/21 06/01/21 06/02/21 Range/Units 17:01 19:53 07:02 WBC (4.50-10.00) X 10*3/uL Monocytes # (0.20-1.00) X 10*3/uL Eosinophils # (0.04-0.35) X 10*3/uL POC Glucose (mg/dL) 138 H 121 H 123 H (75-99) mg/dL C-Reactive Protein (<1.0) mg/dL Assessment and Plan Plan: Assessment: #1. Acute COVID-19 related pneumonia. Patient has completed her vaccination back in favor 2020. Patient presented within 48 hours of symptom onset with increased dyspnea, cough and mild hypoxia, currently on room air, but initially was on 2 L of oxygen. Chest x-ray showed a little pneumonia, interstitial. Patient has been started on Remdesivir on 05/31/2021 and Decadron #2. Mild elevation of inflammatory markers #3. Morbid obesity with BMI 42 #4. Coronary artery disease #5. Hypertension #6. Hyperlipidemia #7. Peripheral neuropathy #8. Osteoarthritis, with history of bilateral knee replacement Plan: Patient reports feeling better, No worsening dyspnea, she remains on room air No fever or chills She has completed 3 doses of Remdesivir, no need to continue on Remdesivir, in view of patient remaining stable and improving No acute events overnight Stable for discharge home from pulmonary perspective She can complete a total 10 days of Decadron, continue on COVID-19 vitamins including vitamin C, D and zinc She has albuterol inhaler at home that she can resume Outpatient follow-up with Dr. Shaw in the office in 2 weeks I performed a history & physical examination of the patient and discussed their management with my nurse practitioner, Tammi Patino. I reviewed the nurse practitioner's note and agree with the documented findings and plan of care. Lung sounds are positive for diminished breath sounds with bibasilar crackles throughout the lung sanchez. The findings and the impression was discussed with the patient. I attest to the documentation by the nurse practitioner. Time with Patient: Less than 30
[2021-06-02 11:28] LABS: Glucose,Whole Blood 130 mg/dL (75-99)
== END 2021-06-02 13:10 | disposition home or self-care (01) | DRG 177 ==
LOC: EC 21:17 → 4SSUR 05-31 00:30
PROVIDERS: ADMIT Internal Medicine Geriatric Medicine; ATTEND Internal Medicine Geriatric Medicine
PROC: XW033E5 Introduction of Remdesivir Anti-infective into Peripheral Vein, Percutaneous Approach, New Technology Group 5 (ICD-10-PCS; principal; 2021-05-31)
PROC: 3E0333Z Introduction of Anti-inflammatory into Peripheral Vein, Percutaneous Approach (ICD-10-PCS; 2021-05-31)
DX: U07.1 COVID-19 (principal); J12.82 Pneumonia due to coronavirus disease 2019; J96.01 Acute respiratory failure with hypoxia; Z68.41 Body mass index [BMI] 40.0-44.9, adult; F33.9 Major depressive disorder, recurrent, unspecified; E66.01 Morbid (severe) obesity due to excess calories; E78.5 Hyperlipidemia, unspecified; F41.1 Generalized anxiety disorder; G47.00 Insomnia, unspecified; G57.90 Unspecified mononeuropathy of unspecified lower limb; I10 Essential (primary) hypertension; I25.10 Atherosclerotic heart disease of native coronary artery without angina pectoris; J45.20 Mild intermittent asthma, uncomplicated; M19.90 Unspecified osteoarthritis, unspecified site; Z79.01 Long term (current) use of anticoagulants; Z79.82 Long term (current) use of aspirin; Z79.899 Other long term (current) drug therapy; Z82.49 Family history of ischemic heart disease and other diseases of the circulatory system; Z87.891 Personal history of nicotine dependence; Z95.5 Presence of coronary angioplasty implant and graft; Z96.653 Presence of artificial knee joint, bilateral; Z88.0 Allergy status to penicillin; Z88.2 Allergy status to sulfonamides; Z88.1 Allergy status to other antibiotic agents; Z88.8 Allergy status to other drugs, medicaments and biological substances
CPT/HCPCS: 36415; 71045; 80053; 83605; 83615; 83735; 83880; 84484; 85025; 85610; 85730; 86140; 87635; 93005; 94640; 94760; 96374; 96375; 99285

== ENCOUNTER → 2021-07-06 | Outpatient (CLI) | payer MEDICARE ==
[2021-07-06 22:04] LABS: Anion Gap 15.9 mmol/L (10.00-18.00); Carbon Dioxide 21.1 mmol/L (20.0-27.5); Potassium 4.3 mmol/L (3.5-5.5)
== END | disposition home or self-care (01) ==
LOC: LABWHC1 13:38
PROVIDERS: ATTEND Family Medicine
DX: I10 Essential (primary) hypertension (principal)
CPT/HCPCS: 36415; 80051

== ENCOUNTER → 2021-07-06 | Outpatient (CLI) | payer MEDICARE ==
--- NOTE | 2021-07-06 14:25 | XR ---
EXAMINATION TYPE: XR chest 2V DATE OF EXAM: 07/06/2021 COMPARISON: Chest x-ray May 30 2021 HISTORY: Recent COVID pneumonia. TECHNIQUE: Frontal and lateral views of the chest are obtained. FINDINGS: There are chronic parenchymal changes bilaterally without suspicious focal airspace opacit y, pleural effusion, or pneumothorax seen. The cardiac silhouette size is stable and upper limits of normal. Exaggerated thoracic kyphosis is present. IMPRESSION: No acute pulmonary process. No significant change from prior.
== END | disposition home or self-care (01) ==
LOC: RADXRMAIN 14:06
PROVIDERS: ATTEND Family Medicine
DX: Z09 Encounter for follow-up examination after completed treatment for conditions other than malignant neoplasm (principal); Z86.16 Personal history of COVID-19
CPT/HCPCS: 71046

== ENCOUNTER 2021-10-12 17:24 | Emergency (ER) | payer SELFPAY ==
[2021-10-12 17:33] VITALS: BP 192/95; PULSE 67; RESP 20; TEMP 97
--- NOTE | 2021-10-12 18:55 | XR ---
EXAMINATION TYPE: XR Hip Complete LT DATE OF EXAM: 10/12/2021 COMPARISON: NONE HISTORY: Hip pain TECHNIQUE: 2 views FINDINGS: There is no fracture nor dislocation. Hip joint space is normal. Acetabulum is intact. IMPRESSION: Negative left hip exam.
--- NOTE | 2021-10-12 19:06 | XR ---
EXAMINATION TYPE: XR knee complete RT DATE OF EXAM: 10/12/2021 COMPARISON: 02/02/2021 HISTORY: Fall TECHNIQUE: 3 views FINDINGS: There is right knee prosthesis. Components are in anatomic position. No fracture seen. No e vidence of joint effusion. IMPRESSION: No fracture seen. No change
== END 2021-10-12 19:00 | disposition left against medical advice (07) ==
LOC: MERGE 17:24 → EC 17:24
DX: Z53.21 Procedure and treatment not carried out due to patient leaving prior to being seen by health care provider (principal)
CPT/HCPCS: 73502; 99499

== ENCOUNTER → 2021-10-12 | Outpatient (CLI) | payer MEDICARE ==
--- NOTE | 2021-10-12 20:58 | MR ---
MR brain without contrast HISTORY: E888.9,R42,W19 Multiplanar multisequence imaging through the brain. Correlation to prior CT brain 05/05/2019 There is motion on the exam. Confluent and scattered periventricular, pericallosal, subcortical hyper intensities are present on inversion recovery T2-weighted sequences, increased signal also noted with in the kiran. There is no restricted diffusion to suggest subacute ischemia. No evident hemorrhage or hydrocephalus. There is cortical atrophy. There are normal vascular flow voids. Hyperintensities pres ent within the mastoid air cells right greater than left, within the ethmoid air cells and frontal si nus. The corpus callosum, pituitary, cervical medullary junction, cerebellopontine angles are within normal limits. The orbits show symmetric appearance. IMPRESSION: Age-related changes of atrophy and probable chronic small vessel ischemia. Sinus disease, correlate for mastoiditis.
== END | disposition home or self-care (01) ==
LOC: RADMRIMAIN 15:36
PROVIDERS: ATTEND Psychiatry & Neurology Neurology
DX: G31.89 Other specified degenerative diseases of nervous system (principal); E88.89 Other specified metabolic disorders
CPT/HCPCS: 70551

== ENCOUNTER → 2021-11-28 | Outpatient (CLI) | payer MEDICARE ==
--- NOTE | 2021-11-28 16:11 | MR ---
EXAMINATION TYPE: MR lumbar spine wo con DATE OF EXAM: 11/28/2021 COMPARISON: None HISTORY: Low back pain, left leg pain/weakness, frequent falls Multiplanar multiecho imaging of the lumbar spine without contrast. The lumbar vertebrae have fairly normal alignment. There is a minimal L4-5 degenerative subluxation. There is moderate facet arthropathy at L4-5. There is moderate L4-5 spinal stenosis. No compression f racture. No evidence of any significant lumbar disc herniation. There is no lumbar paraspinal mass. T here is degenerative disc space narrowing throughout the lumbar spine. No evidence of focal bone dest ruction. There is mild right-sided L4-5 neural foraminal narrowing due to disc space narrowing and fa cet arthropathy. IMPRESSION: There is a moderate L4-5 spinal stenosis related to degenerative first-degree spondylolisthesis and f acet arthropathy.
== END | disposition home or self-care (01) ==
LOC: RADMRIMAIN 12:23
PROVIDERS: ATTEND Psychiatry & Neurology Neurology
DX: M48.061 Spinal stenosis, lumbar region without neurogenic claudication (principal); M43.16 Spondylolisthesis, lumbar region; M47.816 Spondylosis without myelopathy or radiculopathy, lumbar region
CPT/HCPCS: 72148

== ENCOUNTER 2022-03-29 13:48 | Emergency (ER) | payer MEDICARE ==
[2022-03-29 14:44] VITALS: RESP 18
--- NOTE | 2022-03-29 15:33 | XR ---
EXAMINATION TYPE: XR tibia fibula LT, XR knee complete LT DATE OF EXAM: 03/29/2022 3:28 PM INDICATION: Patient age:Female; 71 years old; Reason for study: fall pain; COMPARISON: 10/12/2021. TECHNIQUE: The left tibia/fibula was examined in AP and lateral projections. The left knee was examined in frontal, oblique and lateral projections. FINDINGS: Total left knee arthroplasty changes. The hardware appears intact. There is no evidence of periprosthetic lucency or periprosthetic fracture. There is mild calcaneal Achilles enthesophyte form ation and plantar spurring present. Dystrophic calcifications are seen within the soft tissues anteri jen and are likely postsurgical. IMPRESSION: 1. No evidence of acute fracture. 2. Post left knee total arthroplasty changes without evidence of fracture. Hardware appears in appro priate alignment.
--- NOTE | 2022-03-29 16:28 | ED ---
Fall HPI - General Chief Complaint: Fall Stated Complaint: Fall, Left leg injury Time Seen by Provider: 03/29/22 16:00 Source: patient, family, RN notes reviewed Mode of arrival: ambulatory - History of Present Illness Initial Comments: This is a 71-year-old female who presents to the emergency department for left leg pain after a fall. She was dropping her son off at urgent care for a urine drug test as required for work. She realized that she had to use the bathroom, and when she walked inside, she tripped over the carpet with her walker and fell on her left knee. She is concerned that she may have damaged her prosthetic knee. Currently reports a lot of bruising and swelling to the leg, Denies hitting her head or any loss of consciousness. Denies any fevers, chills, sore throat, cough, dyspnea, chest pain, palpitations, abdominal pain, nausea, vomiting, diarrhea, back pain, or headaches. MD Complaint: fall Fall From: standing Fall Witnessed: yes, by bystander Loss of Consciousness: none Location - Extremities: Left: Knee, Leg Context: tripped/slipped - Related Data Home Medications Medication Instructions Recorded Confirmed Aspirin [Adult Low Dose Aspirin EC] 81 mg PO DAILY 06/25/15 05/31/21 Gabapentin [Neurontin] 300 mg PO TID 06/25/15 05/31/21 Multivit-Min/FA/Lycopen/Lutein 1 tab PO DAILY 06/25/15 05/31/21 [Centrum Silver Tablet] Zinc Gluconate [Zinc] 50 mg PO DAILY 01/21/16 05/31/21 ALPRAZolam [Xanax] 2 mg PO BID PRN 02/24/17 05/31/21 Calcium Carbonate/Vitamin D3 1 tab PO DAILY 05/05/19 05/31/21 [Calcium 500-Vit D3 5 Mcg (200 Iu)] Enalapril Maleate [Vasotec] 20 mg PO BID 05/05/19 05/31/21 Tetrahydrozoline HCl/Zinc Sulf 1 drop BOTH EYES DAILY PRN 05/05/19 05/31/21 [Visine Allergy Relief Drop] atenoloL [Tenormin] 50 mg PO DAILY 05/05/19 05/31/21 Atorvastatin [Lipitor] 10 mg PO DAILY 08/04/20 05/31/21 DULoxetine HCL [Cymbalta] 60 mg PO DAILY 08/04/20 05/31/21 Magnesium 250 mg PO DAILY 08/04/20 05/31/21 Cholecalciferol [Vitamin D3 (25 25 mcg PO DAILY 12/26/20 05/31/21 Mcg = 1000 Iu)] Albuterol Sulfate [Albuterol 2 puff PO RT-Q6H PRN 05/31/21 05/31/21 Sulfate Hfa] Previous Rx's Medication Instructions Recorded Ascorbic Acid [Vitamin C] 500 mg PO DAILY tab 06/02/21 Pantoprazole [Protonix] 40 mg PO AC-BRKFST #5 tab 06/02/21 dexAMETHasone [Decadron] 6 mg PO DAILY #5 tablet 06/02/21 Allergies Allergy/AdvReac Type Severity Reaction Status Date / Time Penicillins Allergy Swelling Verified 03/29/22 14:44 silver Allergy blister Verified 03/29/22 14:44 Sulfa (Sulfonamide Allergy Rash/Hives Verified 03/29/22 14:44 Antibiotics) sulfamethoxazole Allergy Rash/Hives Verified 03/29/22 14:44 [From Bactrim] trimethoprim [From Bactrim] Allergy Rash/Hives Verified 03/29/22 14:44 adhesive AdvReac pulls skin Verified 03/29/22 14:44 off gold Allergy blister Uncoded 03/29/22 14:44 metal Allergy blister Uncoded 03/29/22 14:44 Review of Systems ROS Statement: Those systems with pertinent positive or pertinent negative responses have been documented in the HPI. ROS Other: All systems not noted in ROS Statement are negative. Past Medical History Past Medical History: Coronary Artery Disease (CAD), Hyperlipidemia, Hypertension, Osteoarthritis (OA), Pneumonia Additional Past Medical History / Comment(s): Neuropathy in feet, sciatica.seaonal allergies . recent falls History of Any Multi-Drug Resistant Organisms: None Reported Past Surgical History: Heart Catheterization With Stent, Joint Replacement, Orthopedic Surgery Additional Past Surgical History / Comment(s): Bilateral shoulder surgeries, left knee replacement, lt eye cataract surgery, removal of uterine polyps, pilonidal cyst, right knee replacement- dr white, Past Anesthesia/Blood Transfusion Reactions: No Reported Reaction Date of Last Stent Placement:: 1998 Past Psychological History: Anxiety, No Psychological Hx Reported Smoking Status: Former smoker Past Alcohol Use History: None Reported, Rare - Past Family History Mother Family Medical History: No Reported History General Exam Limitations: no limitations General appearance: alert, in no apparent distress Head exam: Present: atraumatic, normocephalic, normal inspection Respiratory exam: Present: normal lung sounds bilaterally. Absent: respiratory distress, wheezes, rales, rhonchi, stridor Cardiovascular Exam: Present: regular rate, normal rhythm, normal heart sounds. Absent: systolic murmur, diastolic murmur, rubs, gallop, clicks Extremities exam: Present: other (Ecchymosis and swelling just inferior to the left patella. No obvious deformities.) Neurological exam: Present: alert, oriented X3, CN II-XII intact Psychiatric exam: Present: normal affect, normal mood Skin exam: Present: warm, dry, intact, normal color. Absent: rash Course Vital Signs 03/29/22 03/29/22 14:42 16:42 Temperature 98 F 98.9 F Pulse Rate 70 88 Respiratory 18 18 Rate Blood Pressure 142/62 118/78 O2 Sat by Pulse 95 96 Oximetry Medical Decision Making - Medical Decision Making This is a 71-year-old female who presents to the emergency department for left knee and hart pain after a fall. X-rays obtained revealing no acute irregularities. Symptoms likely related to a contusion. Instructed her to apply ice for 15-20 minutes every 2-3 hours and to keep the leg elevated. Her knee was wrapped with an Kwasi bandage prior to discharge. Advise she use this as needed for additional relief. Instructed her to take Tylenol and Ibuprofen as needed for additional pain relief. Return precautions reviewed in depth, the patient is instructed to return to the emergency department with any new, worsening, or concerning symptoms. Patient verbalized understanding. This case was discussed in detail with the attending ED physician. Presentation, findings, and treatment plan discussed in detail as well. - Radiology Data Radiology results: report reviewed, image reviewed Disposition Clinical Impression: Contusion of left lower leg Disposition: HOME SELF-CARE Instructions (If sedation given, give patient instructions): Fall Prevention for Older Adults (ED), Knee Pain (ED), Hematoma (ED) Additional Instructions: Return to the emergency department with any new, worsening, or concerning symptoms. Apply ice for 15-20 minutes every 2-3 hours and keep the leg elevated. Use the Kwasi wrap as needed. Alternate with ibuprofen and Tylenol as needed for pain relief. Is patient prescribed a controlled substance at d/c from ED?: No Referrals: Nonstaff,Physician [Primary Care Provider] - 1-2 days
[2022-03-29 16:43] VITALS: BP 118/78; PULSE 88; TEMP 98.9
== END 2022-03-29 16:42 | disposition home or self-care (01) ==
LOC: EC 13:48
DX: S80.12XA Contusion of left lower leg, initial encounter (principal); I25.10 Atherosclerotic heart disease of native coronary artery without angina pectoris; E78.5 Hyperlipidemia, unspecified; I10 Essential (primary) hypertension; M19.90 Unspecified osteoarthritis, unspecified site; Z87.891 Personal history of nicotine dependence; Z88.0 Allergy status to penicillin; Z91.048 Other nonmedicinal substance allergy status; Z88.2 Allergy status to sulfonamides; Z88.8 Allergy status to other drugs, medicaments and biological substances; W01.0XXA Fall on same level from slipping, tripping and stumbling without subsequent striking against object, initial encounter; Y92.091 Bathroom in other non-institutional residence as the place of occurrence of the external cause
CPT/HCPCS: 99284

== ENCOUNTER 2022-04-07 11:06 | Emergency (ER) | payer MEDICARE ==
[2022-04-07 11:32] VITALS: RESP 16; TEMP 98
[2022-04-07] MEDS ORDERED: HYDROcodone/APAP 5-325MG 1 EACH TAB PO STA (12:04)
--- NOTE | 2022-04-07 12:45 | US ---
EXAMINATION TYPE: US venous doppler duplex LE LT DATE OF EXAM: 04/07/2022 12:37 PM COMPARISON: NONE CLINICAL HISTORY: pain. Left calf pain SIDE PERFORMED: Left TECHNIQUE: The lower extremity deep venous system is examined utilizing real time linear array sonog elbert with graded compression, doppler sonography and color-flow sonography. VESSELS IMAGED: Common Femoral Vein Deep Femoral Vein Greater Saphenous Vein * Femoral Vein Popliteal Vein Small Saphenous Vein * Proximal Calf Veins (* superficial vessels) Difficult and limited study due to patient body habitus and motion Left Leg: Appears negative for DVT 12.1 x 1.7 x 7.9cm complex area seen lateral left calf at patient's area of concern IMPRESSION: No evidence for DVT.
--- NOTE | 2022-04-07 13:30 | XR ---
EXAMINATION TYPE: XR tibia fibula LT DATE OF EXAM: 04/07/2022 CLINICAL HISTORY: pain TECHNIQUE: AP and lateral images of the left tibia and fibula are obtained. COMPARISON: None. FINDINGS: There is no acute fracture/dislocation evident. Total knee arthroplasty appears to be well seated. The overlying soft tissue appears unremarkable. IMPRESSION: There is no acute fracture or dislocation seen. ICD 10 NO FRACTURE, INITIAL EVALUATION
--- NOTE | 2022-04-07 13:47 | ED ---
Lower Extremity Injury HPI - General Chief Complaint: Extremity Injury, Lower Stated Complaint: leg swelling & redness Time Seen by Provider: 04/07/22 11:40 Source: patient, RN notes reviewed Mode of arrival: wheelchair Limitations: no limitations - History of Present Illness Initial Comments: 71-year-old female sent emergency Department chief complaint left leg pain and swelling. Patient states she fell week ago was seen. Patient had x-rays which were negative at that time. She felt her PCP, urgent care and was advised that there is wrong. Patient presents today for repeat imaging and complains of increasing pain, redness. Patient states is redness to her distal leg which was not present. Patient is very warm to touch increasing left calf pain the lateral portion states that this is over the area of bruising. - Related Data Home Medications Medication Instructions Recorded Confirmed Aspirin [Adult Low Dose Aspirin EC] 81 mg PO DAILY 06/25/15 05/31/21 Gabapentin [Neurontin] 300 mg PO TID 06/25/15 05/31/21 Multivit-Min/FA/Lycopen/Lutein 1 tab PO DAILY 06/25/15 05/31/21 [Centrum Silver Tablet] Zinc Gluconate [Zinc] 50 mg PO DAILY 01/21/16 05/31/21 ALPRAZolam [Xanax] 2 mg PO BID PRN 02/24/17 05/31/21 Calcium Carbonate/Vitamin D3 1 tab PO DAILY 05/05/19 05/31/21 [Calcium 500-Vit D3 5 Mcg (200 Iu)] Enalapril Maleate [Vasotec] 20 mg PO BID 05/05/19 05/31/21 Tetrahydrozoline HCl/Zinc Sulf 1 drop BOTH EYES DAILY PRN 05/05/19 05/31/21 [Visine Allergy Relief Drop] atenoloL [Tenormin] 50 mg PO DAILY 05/05/19 05/31/21 Atorvastatin [Lipitor] 10 mg PO DAILY 08/04/20 05/31/21 DULoxetine HCL [Cymbalta] 60 mg PO DAILY 08/04/20 05/31/21 Magnesium 250 mg PO DAILY 08/04/20 05/31/21 Cholecalciferol [Vitamin D3 (25 25 mcg PO DAILY 12/26/20 05/31/21 Mcg = 1000 Iu)] Albuterol Sulfate [Albuterol 2 puff PO RT-Q6H PRN 05/31/21 05/31/21 Sulfate Hfa] Previous Rx's Medication Instructions Recorded Ascorbic Acid [Vitamin C] 500 mg PO DAILY tab 06/02/21 Pantoprazole [Protonix] 40 mg PO AC-BRKFST #5 tab 06/02/21 dexAMETHasone [Decadron] 6 mg PO DAILY #5 tablet 06/02/21 HYDROcodone/APAP 5-325MG [Minong 5] 1 each PO Q6HR PRN #12 tab 04/07/22 Allergies Allergy/AdvReac Type Severity Reaction Status Date / Time Penicillins Allergy Swelling Verified 04/07/22 11:31 silver Allergy blister Verified 04/07/22 11:31 Sulfa (Sulfonamide Allergy Rash/Hives Verified 04/07/22 11:31 Antibiotics) sulfamethoxazole Allergy Rash/Hives Verified 04/07/22 11:31 [From Bactrim] trimethoprim [From Bactrim] Allergy Rash/Hives Verified 04/07/22 11:31 adhesive AdvReac pulls skin Verified 04/07/22 11:31 off gold Allergy blister Uncoded 03/29/22 14:44 metal Allergy blister Uncoded 03/29/22 14:44 Review of Systems ROS Statement: Those systems with pertinent positive or pertinent negative responses have been documented in the HPI. ROS Other: All systems not noted in ROS Statement are negative. Past Medical History Past Medical History: Coronary Artery Disease (CAD), Hyperlipidemia, Hypertension, Osteoarthritis (OA), Pneumonia Additional Past Medical History / Comment(s): Neuropathy in feet, sciatica.seaonal allergies . recent falls History of Any Multi-Drug Resistant Organisms: None Reported Past Surgical History: Heart Catheterization With Stent, Joint Replacement, Orthopedic Surgery Additional Past Surgical History / Comment(s): Bilateral shoulder surgeries, left knee replacement, lt eye cataract surgery, removal of uterine polyps, pilonidal cyst, right knee replacement- dr white, Past Anesthesia/Blood Transfusion Reactions: No Reported Reaction Date of Last Stent Placement:: 1998 Past Psychological History: Anxiety, No Psychological Hx Reported Smoking Status: Former smoker Past Alcohol Use History: None Reported, Rare - Past Family History Mother Family Medical History: No Reported History General Exam Limitations: no limitations General appearance: alert, in no apparent distress Head exam: Present: atraumatic, normocephalic, normal inspection Eye exam: Present: normal appearance, PERRL, EOMI. Absent: scleral icterus, conjunctival injection, periorbital swelling ENT exam: Present: normal exam, normal oropharynx, mucous membranes moist Neck exam: Present: normal inspection, full ROM. Absent: tenderness, meningismus, lymphadenopathy Respiratory exam: Present: normal lung sounds bilaterally. Absent: respiratory distress, wheezes, rales, rhonchi, stridor Cardiovascular Exam: Present: regular rate, normal rhythm, normal heart sounds. Absent: systolic murmur, diastolic murmur, rubs, gallop, clicks Extremities exam: Present: other (Left lower leg there is an abrasion over the left knee, old surgical scar noted, swelling, bruising. Palpation the lower calf on the lateral portion there is distal erythema noted an increase in warmth with palpation.) Neurological exam: Present: alert Skin exam: Present: warm, dry, intact, normal color. Absent: rash Course Vital Signs 04/07/22 11:27 Temperature 98.0 F Pulse Rate 69 Respiratory 16 Rate Blood Pressure 132/79 O2 Sat by Pulse 96 Oximetry Medical Decision Making - Medical Decision Making 71-year-old presented for left leg pain patient has large hematoma noted co nfirmed on ultrasound no DVT x-rays were. No acute findings. Patient provided pain control will be followed up with orthopedics, vascular. Disposition Clinical Impression: Hematoma of left lower leg Disposition: HOME SELF-CARE Condition: Stable Instructions (If sedation given, give patient instructions): Hematoma (ED) Additional Instructions: Please return to the Emergency Department if symptoms worsen or any other concerns. Prescriptions: HYDROcodone/APAP 5-325MG [Minong 5] 1 each PO Q6HR PRN #12 tab PRN Reason: Pain Is patient prescribed a controlled substance at d/c from ED?: Yes When asked, does pt state using other controlled substances?: No If prescribed controlled substance>3 days was MAPS reviewed?: Prescribed <3 Days If opioid is for acute pain is fill amount 7 days or less?: Yes If Rx opioid, was Start Talking consent form obtained?: Yes Referrals: Min Guerrero DO [Doctor of Osteopathic Medicine] - 1-2 days Les Olmstead DO [STAFF PHYSICIAN] - 1-2 days Time of Disposition: 13:45
[2022-04-07 14:07] VITALS: BP 131/89; PULSE 71
== END 2022-04-07 14:07 | disposition home or self-care (01) ==
LOC: EC 11:06
DX: S80.12XA Contusion of left lower leg, initial encounter (principal); I25.10 Atherosclerotic heart disease of native coronary artery without angina pectoris; E78.5 Hyperlipidemia, unspecified; I10 Essential (primary) hypertension; Z96.653 Presence of artificial knee joint, bilateral; Z88.0 Allergy status to penicillin; Z88.8 Allergy status to other drugs, medicaments and biological substances; Z88.2 Allergy status to sulfonamides; Z88.1 Allergy status to other antibiotic agents; Z91.048 Other nonmedicinal substance allergy status; Z79.82 Long term (current) use of aspirin; Z79.899 Other long term (current) drug therapy; Z87.891 Personal history of nicotine dependence; W19.XXXA Unspecified fall, initial encounter
CPT/HCPCS: 99284

== ENCOUNTER 2022-07-14 07:14 | Day surgery (SDC) | payer MEDICARE ==
[2022-07-12 09:52] VITALS: BMI 41.1
[~2022-07-14 07:14] MED LIST changes: -ACETAMINOPHEN TAB 500 MG TAB PO PRN; -DEXAMETHASONE SOD PHOSPHATE 4 MG/ML 1 ML VIAL IV ONE; +LACTATED RINGERS 1,000 ML IV SCH; -LIDOCAINE 1% (10MG/ML) FOR IV START INTRADERMA PRN; -MELOXICAM 7.5 MG TAB PO PRN; -ONDANSETRON 4 MG/2 ML VIAL IVP ONE; -ROPIVACAINE/EPI/CLONIDINE/KET 50 ML SYRINGE MISCELLANE PRN; -TRANEXAMIC ACID 1,000 MG in SODIUM CHLORIDE 0.9% 100 ML IVPB PRN
[2022-07-14 07:42] VITALS: TEMP 97.4
[2022-07-14] MEDS ORDERED: LIDOCAINE 1% (10MG/ML) FOR IV START INTRADERMA ONE (08:00)
[2022-07-14] MEDS ORDERED: LIDOCAINE 2% INJ 20 MG/ML (2 ML VIAL) ONE (08:35)
[2022-07-14] MEDS ORDERED: PROPOFOL 10 MG/ML 20 ML VIAL IV ONE (08:35)
--- NOTE | 2022-07-14 08:49 | P.PCN ---
Date of Procedure: 07/14/22 Procedure(s) Performed: BRIEF HISTORY: Patient is a 72-year-old, pleasant, white female scheduled for an upper endoscopy as a part of evaluation of intermittent dysphagia to solids for the last 2 months. Usually with meat and bread. Denies any heartburn. No odynophagia.. PROCEDURE PERFORMED: Esophagogastroduodenoscopy with biopsy and dilation. PREOPERATIVE DIAGNOSIS: Intermittent dysphagia to solids of 2 months IV sedation per anesthesia. PROCEDURE: After informed consent was obtained, the patient was brought into the endoscopy unit. IV sedation was administered by Anesthesia under continuous monitoring. Initially the Olympus GIF-140 video endoscope was inserted into the mouth. Esophagus intubated without any difficulty. It was gradually advanced into the stomach and duodenum and carefully examined. The bulb and the second part of the duodenum appeared normal. The scope at this time was withdrawn to the stomach, adequately insufflated with air, and upon careful examination, mucosa of the antrum, body, cardia and the fundus appeared normal. The scope was then withdrawn into the esophagus. The GE junction was located at 39 cm from the incisors. There was a distal esophageal widely patent Schatzki's ring identified that was dilated using 18-20 mm TTS balloon in a sequential fashion for 30 seconds. The esophagus appeared normal. There were no erosions or ulcerations seen , multiple biopsies were done from the mid and distal esophagus to evaluate for eosinophilic esophagitis and the patient tolerated the procedure well. IMPRESSION: 1. Mild antral Gastritis. 2. Distal esophageal Schatzki's ring status post balloon dilation using 18-20 mm TTS balloon as described above. 3. Small hiatal hernia RECOMMENDATIONS: The findings of this examination were discussed with the patient as well as a family.. She was advised to follow with the biopsy results. Educated about antireflux measures and diet modification. Follow up in the office in 2-3 months if she has persistent dysphagia
[2022-07-14 09:09] VITALS: RESP 16
[2022-07-14 09:11] VITALS: BP 148/71; PULSE 56
== END 2022-07-14 09:54 | disposition home or self-care (01) ==
LOC: ORWHC2ENDO 07:14
PROVIDERS: ATTEND Internal Medicine Gastroenterology
DX: K29.70 Gastritis, unspecified, without bleeding (principal); K31.9 Disease of stomach and duodenum, unspecified; K22.2 Esophageal obstruction; K21.9 Gastro-esophageal reflux disease without esophagitis; K44.9 Diaphragmatic hernia without obstruction or gangrene; I25.10 Atherosclerotic heart disease of native coronary artery without angina pectoris; E66.01 Morbid (severe) obesity due to excess calories; I10 Essential (primary) hypertension; Z88.0 Allergy status to penicillin; Z88.2 Allergy status to sulfonamides; Z88.5 Allergy status to narcotic agent; Z79.899 Other long term (current) drug therapy; Z68.38 Body mass index [BMI] 38.0-38.9, adult
CPT/HCPCS: 88305; 43239; 43249; J2704; J2001; C1726

== ENCOUNTER 2022-12-23 12:46 | Emergency (ER) | payer MEDICARE ==
[2022-12-23] MEDS ORDERED: KETOROLAC 15 MG/ML 1 ML VIAL IM STA (13:51)
--- NOTE | 2022-12-23 14:11 | XR ---
EXAMINATION TYPE: XR hand complete RT DATE OF EXAM: 12/23/2022 COMPARISON: 12/05/2018 HISTORY: 72-year-old female pain after injury TECHNIQUE: 3 views FINDINGS: Moderate osteoarthritic change with joint space narrowing first MCP joint. Severe joint spa ce narrowing with subchondral sclerosis and marginal spurring at the first CMC joint. There is jude widening of the scapholunate interval demonstrated up to nearly 4 mm. Osteopenia. Scattered osteoarth ritic change at the DIP joints, particularly second and third. No acute fracture, subluxation or disl ocation is seen. IMPRESSION: 1. Scattered osteoarthritic change, severe at the base of the thumb and moderate at the second MCP eve int. 2. 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
--- NOTE | 2022-12-23 14:36 | ED ---
Upper Extremity HPI - General Chief Complaint: Extremity Injury, Upper Stated Complaint: R Finger Injury Time Seen by Provider: 12/23/22 13:37 Source: patient Mode of arrival: wheelchair Limitations: no limitations - History of Present Illness Initial Comments: Patient is a 72-year-old female presents to the emergency department for right hand pain. Patient states she has bad arthritis in the knuckles of her hand states last night her second finger knuckle popped out of place and since then she has had pain with some swelling. She took a Motrin with significant relief wanted to make sure it wasn't broken. She denies any numbness and tingling. Denies issues with range of motion. - Related Data Home Medications Medication Instructions Recorded Confirmed Aspirin [Adult Low Dose Aspirin EC] 81 mg PO DAILY 06/25/15 07/14/22 Gabapentin [Neurontin] 300 mg PO TID 06/25/15 07/14/22 Multivit-Min/FA/Lycopen/Lutein 1 tab PO DAILY 06/25/15 07/14/22 [Centrum Silver Tablet] Zinc Gluconate [Zinc] 50 mg PO DAILY 01/21/16 07/14/22 ALPRAZolam [Xanax] 0.5 mg PO BID PRN 02/24/17 07/14/22 Calcium Carbonate/Vitamin D3 1 tab PO DAILY 05/05/19 07/14/22 [Calcium 500-Vit D3 5 Mcg (200 Iu)] Enalapril Maleate [Vasotec] 20 mg PO BID 05/05/19 07/14/22 Tetrahydrozoline HCl/Zinc Sulf 1 drop BOTH EYES DAILY PRN 05/05/19 07/14/22 [Visine Allergy Relief Drop] atenoloL [Tenormin] 50 mg PO DAILY 05/05/19 07/14/22 Atorvastatin [Lipitor] 10 mg PO HS 08/04/20 07/14/22 DULoxetine HCL [Cymbalta] 60 mg PO DAILY 08/04/20 07/14/22 Magnesium 250 mg PO DAILY 08/04/20 07/14/22 Cholecalciferol [Vitamin D3 (25 25 mcg PO DAILY 12/26/20 07/14/22 Mcg = 1000 Iu)] Albuterol Sulfate [Albuterol 2 puff PO RT-Q6H PRN 05/31/21 07/14/22 Sulfate Hfa] Sertraline [Zoloft] 50 mg PO HS 07/12/22 07/14/22 Allergies Allergy/AdvReac Type Severity Reaction Status Date / Time Penicillins Allergy Swelling Verified 12/23/22 13:35 silver Allergy blister Verified 12/23/22 13:35 Sulfa (Sulfonamide Allergy Rash/Hives Verified 12/23/22 13:35 Antibiotics) sulfamethoxazole Allergy Rash/Hives Verified 12/23/22 13:35 [From Bactrim] trimethoprim [From Bactrim] Allergy Rash/Hives Verified 12/23/22 13:35 adhesive AdvReac pulls skin Verified 12/23/22 13:35 off metal Allergy blister Uncoded 12/23/22 13:35 Review of Systems ROS Statement: Those systems with pertinent positive or pertinent negative responses have been documented in the HPI. ROS Other: All systems not noted in ROS Statement are negative. Past Medical History Past Medical History: Coronary Artery Disease (CAD), Hyperlipidemia, Hypertension, Osteoarthritis (OA), Pneumonia Additional Past Medical History / Comment(s): Neuropathy in feet, sc iatica.seaonal allergies . past history of falls, "states she has had some difficulty swallowing and a choking feeling" History of Any Multi-Drug Resistant Organisms: None Reported Past Surgical History: Heart Catheterization With Stent, Joint Replacement, Orthopedic Surgery Additional Past Surgical History / Comment(s): Bilateral shoulder surgeries, left knee replacement, lt eye cataract surgery, removal of uterine polyps, pilonidal cyst, right knee replacement- cataract Past Anesthesia/Blood Transfusion Reactions: No Reported Reaction Date of Last Stent Placement:: 1998 Past Psychological History: Anxiety Smoking Status: Former smoker Past Alcohol Use History: None Reported Past Drug Use History: None Reported - Past Family History Mother Family Medical History: No Reported History General Exam Limitations: no limitations General appearance: alert, in no apparent distress Head exam: Present: atraumatic, normocephalic, normal inspection Respiratory exam: Present: normal lung sounds bilaterally. Absent: respiratory distress, wheezes, rales, rhonchi, stridor Cardiovascular Exam: Present: regular rate, normal rhythm, normal heart sounds. Absent: systolic murmur, diastolic murmur, rubs, gallop, clicks Extremities exam: Present: other (mild swelling and erythema of second MCP joint. Neurovascularly intact. Full range of motion. No anatomical snuffbox tenderness) Neurological exam: Present: alert, oriented X3, CN II-XII intact Psychiatric exam: Present: normal affect, normal mood Skin exam: Present: warm, dry, intact, normal color. Absent: rash Course Vital Signs 12/23/22 12/23/22 13:32 15:05 Temperature 98.3 F 98.1 F Pulse Rate 65 61 Respiratory 20 18 Rate Blood Pressure 125/57 139/75 O2 Sat by Pulse 96 98 Oximetry Medical Decision Making - Medical Decision Making Was pt. sent in by a medical professional or institution (, [facility], CIVIL SERVICE WORKER, urgent care, hospital, or fci...) When possible be specific @ -No Did you speak to anyone other than the patient for history (EMS, parent, family, police, friend...)? What history was obtained from this source @ -No Did you review nursing and triage notes (agree or disagree)? Why? @ -I reviewed and agree with nursing and triage notes Were old charts reviewed (outside hosp., previous admission, EMS record, old EKG, old radiological studies, urgent care reports/EKG's, fci records)? Report findings @ -No old charts were reviewed Differential Diagnosis (chest pain, altered mental status, abdominal pain women, abdominal pain men, vaginal bleeding, weakness, fever, dyspnea, syncope, headache, dizziness, GI bleed, back pain, seizure, CVA, palpatations, mental health)? @ -Fracture, sprain, arthritis. This list is not meant to be all-inclusive EKG interpreted by me (3pts min.). @ -None X-rays interpreted by me (1pt min.). @ -Scattered osteoarthritic change, severe at the base of the thumb ans moderate at the second MCP joint, chronic tear of the scapholunate ligament with interval widening, no evidence of fracture CT interpreted by me (1pt min.). @ -None done U/S interpreted by me (1pt. min.). @ -None done What testing was considered but not performed or refused? (CT, X-rays, U/S, labs)? Why? @ -None What meds were considered but not given or refused? Why? @ -None Did you discuss the management of the patient with other professionals (professionals i.e. , PA, CIVIL SERVICE WORKER, lab, RT, psych nurse, manager social responsibility, tool setter, teacher, risk officer, case assembler)? Give summary @ -No Was smoking cessation discussed for >3mins.? @ -No Was critical care preformed (if so, how long)? @ -No Were there social determinants of health that impacted care today? How? (Homelessness, low income, unemployed, alcoholism, drug addiction, transportation, low edu. Level, literacy, decrease access to med. care, [facility], rehab)? @ -No Was there de-escalation of care discussed even if they declined (Discuss DNR or withdrawal of care, Hospice)? DNR status @ -No What co-morbidities impacted this encounter? (DM, HTN, Smoking, COPD, CAD, Cancer, CVA, ARF, Chemo, Hep., AIDS, mental health diagnosis, sleep apnea, morbid obesity)? @ -None Was patient admitted / discharged? Hospital course, mention meds given and route, prescriptions, significant lab abnormalities, going to OR and other pertinent info. @ -Discharged. X-ray shows arthritic changes without evidence of fracture. Pain improved after Toradol. Hand was wrapped in Kwasi wrap. There is no anatomical snuffbox tenderness patient will provide symptomatic treatment at home and follow up with her primary care provider Undiagnosed new problem with uncertain prognosis? @ -No Drug Therapy requiring intensive monitoring for toxicity (Heparin, Nitro, Insulin, Cardizem)? @ -No Were any procedures done? @ -No Diagnosis/symptom? @ -right hand pain Acute, or Chronic, or Acute on Chronic? @ -acute Uncomplicated (without systemic symptoms) or Complicated (systemic symptoms)? @ -uncomplicated Side effects of treatment? @ -No Exacerbation, Progression, or Severe Exacerbation? @ -No Poses a threat to life or bodily function? How? (Chest pain, [place], [place], pneumonia, PE, COPD, DKA, ARF, appy, cholecystitis, CVA, Diverticulitis, Homicidal, Suicidal, threat to staff... and all critical care pts) @ -No Dr. Donahue is my attending Disposition Clinical Impression: Right hand pain Disposition: HOME SELF-CARE Condition: Good Instructions (If sedation given, give patient instructions): Hand Sprain (ED) Additional Instructions: Rest and elevate the joint as much as possible. Ice the injury for the next 24- 48 hours. If symptoms continue after, apply warm compress. Take Tylenol or Motrin as needed for pain. Follow-up with primary care provider in 1 to 2 days. Return to the emergency department if you experience new, concerning, or worsening symptoms. Is patient prescribed a controlled substance at d/c from ED?: No Referrals: Tucker Meza MD [Primary Care Provider] - 1-2 days
[2022-12-23 15:07] VITALS: BP 139/75; PULSE 61; RESP 18; TEMP 98.1
== END 2022-12-23 15:29 | disposition home or self-care (01) ==
LOC: EC 12:46
DX: M79.641 Pain in right hand (principal); I25.10 Atherosclerotic heart disease of native coronary artery without angina pectoris; E78.5 Hyperlipidemia, unspecified; I10 Essential (primary) hypertension; M19.90 Unspecified osteoarthritis, unspecified site; F41.9 Anxiety disorder, unspecified; Z87.891 Personal history of nicotine dependence; Z79.82 Long term (current) use of aspirin; Z79.1 Long term (current) use of non-steroidal anti-inflammatories (NSAID); Z79.899 Other long term (current) drug therapy; Z88.0 Allergy status to penicillin; Z88.2 Allergy status to sulfonamides; Z88.1 Allergy status to other antibiotic agents; Z91.09 Other allergy status, other than to drugs and biological substances; Z88.8 Allergy status to other drugs, medicaments and biological substances
CPT/HCPCS: 73130; 99283; 96372; J1885

== ENCOUNTER → 2023-09-27 | Outpatient (CLI) | payer MEDICARE ==
--- NOTE | 2023-09-27 14:57 | MM ---
Reason for Exam: Screening (asymptomatic). Last mammogram was performed 1 year(s) and 5 month(s) ago. Patient History: Menarche at age 12. First Full-Term at age 21. Postmenopausal. Risk Values: Gaviota 5 year model risk: 1.6%. NCI Lifetime model risk: 3.9%. Prior Study Comparison: 02/21/2018 Bilateral Screening Mammogram, [facility]. 04/13/2019 Bilateral Screening Mammogram, [facility]. 08/26/2020 Bilateral Screening Mammogram, [facility]. 04/23/2022 Bilateral Screening Mammogram, [facility]. Tissue Density: The breasts are almost entirely fatty. Findings: Analyzed By CAD. There is no suspicious group of microcalcifications or new suspicious mass. Benign-appearing calcifications bilaterally. Overall Assessment: Benign, BI-RAD 2 Management: Screening Mammogram of both breasts in [address] [facility] will attempt to contact patient to return for supplemental views and ultrasound if indicated. Patient should continue monthly self-breast exams. A clinical breast exam by your physician is recommended on an annual basis. This exam should not preclude additional follow-up of suspicious palpable abnormalities. Note on Gaviota scores and lifetime risk: 1. A Gaviota score greater than 3% is considered moderate risk. If this is the case, consider specialist referral to assess eligibility for a risk reducing agent. 2. If overall lifetime risk for the development of breast cancer is 20% or higher, the patient may qualify for future screening with alternating mammogram and breast MRI. Electronically signed and approved by: Alejo Trejo DO
== END | disposition home or self-care (01) ==
LOC: RADMAMWWP 13:50
PROVIDERS: ATTEND Internal Medicine
DX: Z12.31 Encounter for screening mammogram for malignant neoplasm of breast (principal); Z78.0 Asymptomatic menopausal state
CPT/HCPCS: 77063; 77067

== ENCOUNTER 2023-10-03 09:19 | Day surgery (SDC) | payer MEDICARE ==
[~2023-10-03 09:19] MED LIST changes: +ALPRAZolam 0.25 MG TAB PO PRN; +ASPIRIN 325 MG TAB PO PRN; +EMPTY BAG 1 BAG with SODIUM CHLORIDE 0.9% 1,000 ML IV SCH; +HEPARIN SODIUM,PORCINE (1 ML) 2,500 UNIT in SODIUM CHLORIDE 0.9% 250 ML IRRIGATION PRN; +HEPARIN SODIUM,PORCINE 10,000 UNIT in SODIUM CHLORIDE 0.9% 1,000 ML IRRIGATION PRN; -LACTATED RINGERS 1,000 ML IV SCH; +ZOLPIDEM 5 MG TAB PO PRN
[2023-10-03] MEDS: SODIUM CHLORIDE 0.9% 1,000 ML IV ONE (09:33)
[2023-10-03] MEDS: ALPRAZolam 0.5 MG TAB PO PRN (09:38)
[2023-10-03 10:01] VITALS: TEMP 98.1
[2023-10-03] MEDS ORDERED: fentaNYL (PF) 50 MCG/ML 2 ML AMP ONE (10:09)
[2023-10-03] MEDS: fentaNYL (PF) 50 MCG/ML 2 ML AMP IVP ONE (10:12)
[2023-10-03] MEDS: MIDAZOLAM 2 MG/2 ML VIAL IVP ONE (10:12)
[2023-10-03 10:13] LABS: Basophils # (A) 0.1 k/uL (0-0.2); Basophils % (A) 1 %; Eosinophils # (A) 0.2 k/uL (0-0.7); Eosinophils % (A) 3 %; HCT 43.8 % (34.0-46.0); HGB 14.4 gm/dL (11.4-16.0); Lymphocytes # (A) 2.2 k/uL (1.0-4.8); Lymphocytes % (A) 32 %; MCH 30.3 pg (25.0-35.0); MCHC 32.9 g/dL (31.0-37.0); MCV 92.1 fL (80.0-100.0); Mean Platelet Volume 7.5; Monocytes # (A) 0.5 k/uL (0-1.0); Monocytes % (A) 6 %; Neutrophils # (A) 3.9 k/uL (1.3-7.7); Neutrophils % (A) 56 %; Platelet Count 252 k/uL (150-450); RBC 4.76 m/uL (3.80-5.40); RDW 12.1 % (11.5-15.5); WBC 6.9 k/uL (3.8-10.6)
[2023-10-03] MEDS: LIDOCAINE 1% INJ 10MG/ML (20 ML MDV) SQ ONE (10:13)
[2023-10-03] MEDS: VERAPAMIL 2.5 MG/ML 2 ML AMP INTRAARTER ONE (10:18)
[2023-10-03 10:20] LABS: African American GFR (CKD) 88 (>60 ml/min/1.73 sqM); Anion Gap 9 mmol/L; Blood Urea Nitrogen 21 mg/dL (7-17); Calcium 9.7 mg/dL (8.4-10.2); Carbon Dioxide 25 mmol/L (22-30); Chloride 106 mmol/L (98-107); Glucose 112 mg/dL (74-99); Non-African American GFR(CKD) 76 (>60 ml/min/1.73 sqM); Potassium 4.1 mmol/L (3.5-5.1); Sodium 140 mmol/L (137-145)
[2023-10-03] MEDS: IOPAMIDOL-250 100ML BTL INTRAARTER ONE (10:32)
--- NOTE | 2023-10-03 10:44 | P.OP ---
Date of Procedure: 10/03/23 Preoperative Diagnosis: Disabling claudication [place] classification 3 Postoperative Diagnosis: Disabling claudication [place] classification 3 Right superficial femoral artery multiple areas of stenosis with mid SFA occlusion and reconstitution above-knee popliteal Left superficial femoral artery stenosis 40% Two-vessel runoff bilaterally Procedure(s) Performed: Aortogram with bilateral lower extremity runoff via the left radial artery access Ultrasound-guided access of the left radial artery Indications for Procedure: 73-year-old female with history of lower extremity disabling claudication, numbness in her feet presents to the hospital after workup with arterial Doppler demonstrating significant disease in the right lower extremity with mild atherosclerotic occlusive disease in the left for diagnostic angiogram. She states she can not ambulate without significant pain in her feet and calves bilaterally. She states her numbness is constant. Operative Findings: Aorta: Patent with bilateral renal artery patency without any significant stenosis or atherosclerotic disease Iliacs: Bilateral common, internal and external iliac arteries are patent with minimal atherosclerotic disease and no evidence of stenosis Femorals: Bilateral common femoral arteries are patent without any significant stenosis or atherosclerotic disease. Profundus femoris arteries are widely patent without any stenosis or disease. Right SFA at the takeoff demonstrates greater than 80% stenosis with multiple areas of stenosis extending down to the midportion of the SFA where it occludes and reconstitutes at the above-knee popliteal artery. Left SFA demonstrated some mild stenosis 20 to 30% at multiple areas of the SFA without any occlusions. Popliteal: Patent without any significant stenosis or atherosclerotic disease. Tibials: Difficult to see the takeoff due to hardware in the knee. Two-vessel runoff bilaterally to the ankle. Description of Procedure: Operative narrative: After written informed consent was obtained the patient all risks benefits competitions were described the patient is brought to the [employer] Administrator and laid in a supine position. The area of the left wrist was prepped and draped in the usual sterile fashion. Local anesthesia with moderate sedation was performed with continuous pulse ox monitoring and EKG monitoring. Utilizing ultrasound the left radial artery was visualized and shown to be patent without any significant plaque. Utilizing a multipurpose needle under ultrasound guidance the artery was accessed. Guidewire was placed followed by 4/5 [place]e slender sheath. 035 Glidewire was then placed into the aorta followed by pigtail catheter. Angiogram was then obtained of the aorta. Catheter was then placed at the bifurcation and lower extremity runoffs were obtained. Once completed all guidewires, catheters and sheaths were removed and pressure was placed for hemostasis. Patient tolerated procedure well was sent to PACU for recovery Plan - Discharge Summary Discharge Rx Participant: Yes New Discharge Prescriptions: No Action Gabapentin [Neurontin] 300 mg PO TID Multivit-Min/FA/Lycopen/Lutein [Centrum Silver Tablet] 1 tab PO DAILY Aspirin [Adult Low Dose Aspirin EC] 81 mg PO DAILY Zinc Gluconate [Zinc] 50 mg PO DAILY atenoloL [Tenormin] 50 mg PO DAILY Magnesium 250 mg PO HS DULoxetine HCL [Cymbalta] 60 mg PO DAILY Atorvastatin [Lipitor] 10 mg PO HS Albuterol Sulfate [Albuterol Sulfate Hfa] 2 puff PO RT-Q6H PRN PRN Reason: Shortness Of Breath Ascorbic Acid [Vitamin C] 500 mg PO DAILY diphenhydrAMINE [Benadryl] 25 mg PO BID PRN PRN Reason: allergies Furosemide [Lasix] 40 mg PO DAILY Losartan Potassium 25 mg PO DAILY Cyanocobalamin (Vitamin B-12) [Vitamin B-12] 1,000 mcg PO DAILY Cholecalciferol [Vitamin D3 (25 Mcg = 1000 Iu)] 25 mcg PO DAILY amLODIPine 10 mg PO HS Vitamin B Complex 1 each PO DAILY Calcium Carbonate/Vitamin D3 [Calcium 500 mg Chewable Tablet] 1 tab PO DAILY Discharge Medication List Aspirin [Adult Low Dose Aspirin EC] 81 mg PO DAILY 06/25/15 [History] Gabapentin [Neurontin] 300 mg PO TID 06/25/15 [History] Multivit-Min/FA/Lycopen/Lutein [Centrum Silver Tablet] 1 tab PO DAILY 06/25/15 [History] Zinc Gluconate [Zinc] 50 mg PO DAILY 01/21/16 [History] atenoloL [Tenormin] 50 mg PO DAILY 05/05/19 [History] Atorvastatin [Lipitor] 10 mg PO HS 08/04/20 [History] DULoxetine HCL [Cymbalta] 60 mg PO DAILY 08/04/20 [History] Magnesium 250 mg PO HS 08/04/20 [History] Cholecalciferol [Vitamin D3 (25 Mcg = 1000 Iu)] 25 mcg PO DAILY 12/26/20 [History] Albuterol Sulfate [Albuterol Sulfate Hfa] 2 puff PO RT-Q6H PRN 05/31/21 [History] Ascorbic Acid [Vitamin C] 500 mg PO DAILY 09/27/23 [History] Calcium Carbonate/Vitamin D3 [Calcium 500 mg Chewable Tablet] 1 tab PO DAILY 09/27/23 [History] Cyanocobalamin (Vitamin B-12) [Vitamin B-12] 1,000 mcg PO DAILY 09/27/23 [History] Furosemide [Lasix] 40 mg PO DAILY 09/27/23 [History] Losartan Potassium 25 mg PO DAILY 09/27/23 [History] Vitamin B Complex 1 each PO DAILY 09/27/23 [History] amLODIPine 10 mg PO HS 09/27/23 [History] diphenhydrAMINE [Benadryl] 25 mg PO BID PRN 09/27/23 [History] Follow up Appointment(s)/Referral(s): Les Olmstead DO [STAFF PHYSICIAN] - 1 Week Discharge Disposition: HOME SELF-CARE
--- NOTE | 2023-10-03 11:46 | IR ---
EXAMINATION TYPE: IR angio abdominal w runoff Intraoperative/procedural fluoroscopic services were pr ovided. CLINICAL INDICATION:Female, 73 years old with history of BILATERAL LEG PAIN, 2.6M/86.4DAP/LEFT RADIAL TR BAND 8CC; , [facility] Total fluoroscopy time is 2.6 min. DAP: 86.4 Gycm2 uGym2 Please see the operative/procedural note for further details.
[2023-10-03 12:18] VITALS: RESP 16
[2023-10-03 14:37] VITALS: BP 131/63; PULSE 62
== END 2023-10-03 13:54 | disposition home or self-care (01) ==
LOC: CATHCVL 09:19
PROVIDERS: ATTEND Surgery
DX: I73.9 Peripheral vascular disease, unspecified (principal); G89.29 Other chronic pain; Z79.82 Long term (current) use of aspirin; Z79.899 Other long term (current) drug therapy; Z87.891 Personal history of nicotine dependence
CPT/HCPCS: 36200; 75625; 75716; 76937; 80048; 85025; C1769 ×3; C1894; J2250; J2001; J3010; Q9966

== ENCOUNTER → 2023-10-06 | Outpatient (CLI) | payer MEDICARE ==
--- NOTE | 2023-10-06 18:10 | XR ---
EXAMINATION TYPE: XR chest 2V DATE OF EXAM: 10/06/2023 3:36 PM CLINICAL INDICATION:Female, 73 years old with history of R05.9 COUGH; [facility] COMPARISON: Chest radiographs from 07/06/2021 TECHNIQUE: XR chest 2V Frontal and lateral views of the chest. FINDINGS: Lungs/Pleura: There is no evidence of pleural effusion, focal consolidation, or pneumothorax. Pulmonary vascularity: Unremarkable. Heart/mediastinum: Cardiomediastinal silhouette is enlarged and stable. Musculoskeletal: No acute osseous pathology. Other findings: None IMPRESSION: No acute cardiopulmonary disease/process.
[2023-10-07 02:58] LABS: Basophils # (A) 0.07 X 10*3/uL (0.00-0.10); Eosinophils # (A) 0.19 X 10*3/uL (0.04-0.35); Eosinophils % (A) 2.8 %; HCT 42.3 % (37.2-46.3); HGB 13.7 g/dL (12.0-15.0); Lymphocytes # (A) 1.88 X 10*3/uL (0.90-5.00); Lymphocytes % (A) 27.9 %; MCHC 32.4 g/dL (32.0-37.0); MCV 92.8 FL (80.0-97.0); Mean Platelet Volume 10.5 FL (9.5-12.2); Monocytes # (A) 0.68 X 10*3/uL (0.20-1.00); Monocytes % (A) 10.1 %; NRBC Per 100 WBC 0 X 10*3/uL (0.00-0.01); Neutrophils # (A) 3.89 X 10*3/uL (1.80-7.70); Neutrophils % (A) 57.9 %; Platelet Count 261 X 10*3/uL (140-440); RBC 4.56 X 10*6/uL (4.10-5.20); RDW 12.3 % (11.5-14.5); WBC 6.73 X 10*3/uL (4.50-10.00)
[2023-10-07 03:02] LABS: BUN/Creat Ratio 21.11 Ratio (12.00-20.00); Carbon Dioxide 22.7 mmol/L (21.6-31.8); Chloride 104 mmol/L (96-109); Glucose 112 mg/dL (70-110); Potassium 4.4 mmol/L (3.5-5.5); Sodium 141 mmol/L (135-145)
[2023-10-07 03:03] LABS: Calcium 9.9 mg/dL (8.7-10.3)
== END | disposition home or self-care (01) ==
LOC: LABWHC1 15:01
PROVIDERS: ATTEND Internal Medicine
DX: I10 Essential (primary) hypertension (principal); R05.9 Cough, unspecified
CPT/HCPCS: 36415; 71046; 80048; 85025

== ENCOUNTER → 2023-11-15 | Outpatient (CLI) | payer MEDICARE ==
[2023-11-15 20:05] LABS: Appearance,Urine Cloudy (Clear); Bilirubin,Urine Negative (Negative); Blood,Urine Negative (Negative); Color,Urine Dark Yellow (Yellow); Ketones,Urine Negative (Negative); Nitrite,Urine Negative (Negative); PH, Urine 5.5; Specific Gravity,Urine 1.018 (1.001-1.030); Urobilinogen,Urine 0.2 E.U./DL
[2023-11-15 20:35] LABS: Bacteria,Urine 1+ (None Seen)
[2023-11-15 22:55] LABS: Phosphorus 4.9 mg/dL (2.4-5.1); Uric Acid 5.6 mg/dL (2.9-7.7)
[2023-11-15 23:19] LABS: Blood Urea Nitrogen 18.6 mg/dL (9.0-27.0); Calcium 10.2 mg/dL (8.7-10.3); Carbon Dioxide 20.2 mmol/L (21.6-31.8); Chloride 102 mmol/L (96-109); Glucose 104 mg/dL (70-110); Potassium 4.8 mmol/L (3.5-5.5); Sodium 139 mmol/L (135-145)
== END | disposition home or self-care (01) ==
LOC: LABWHC1 13:02
PROVIDERS: ATTEND Surgery
DX: N17.9 Acute kidney failure, unspecified (principal); R80.9 Proteinuria, unspecified
CPT/HCPCS: 36415; 80048; 81001; 82043; 82570; 83735; 83970; 84100; 84550; 85652

== ENCOUNTER → 2023-12-23 | Outpatient (CLI) | payer MEDICARE ==
[2023-12-23 17:05] LABS: Appearance,Urine Clear (Clear); Bilirubin,Urine Negative (Negative); Blood,Urine Negative (Negative); Color,Urine Dark Yellow (Yellow); Ketones,Urine Negative (Negative); Nitrite,Urine Negative (Negative); PH, Urine 5.5; Specific Gravity,Urine 1.018 (1.001-1.030); Urobilinogen,Urine 0.2 E.U./DL
[2023-12-23 17:11] LABS: Bacteria,Urine 1+ (None Seen)
[2023-12-23 17:12] LABS: BUN/Creat Ratio 21.88 Ratio (12.00-20.00); Blood Urea Nitrogen 17.5 mg/dL (9.0-27.0); Calcium 9.3 mg/dL (8.7-10.3); Carbon Dioxide 22.2 mmol/L (21.6-31.8); Chloride 102 mmol/L (96-109); Glucose 102 mg/dL (70-110); Magnesium 2.2 mg/dL (1.5-2.4); Potassium 4.3 mmol/L (3.5-5.5); Sodium 139 mmol/L (135-145)
== END | disposition home or self-care (01) ==
LOC: LABWHC1 13:25
PROVIDERS: ATTEND Internal Medicine
DX: Z00.00 Encounter for general adult medical examination without abnormal findings (principal)
CPT/HCPCS: 36415; 80048; 81001; 83735; 87086

== ENCOUNTER → 2024-01-26 | Outpatient (CLI) | payer MEDICARE ==
--- NOTE | 2024-01-28 14:14 | XR ---
EXAMINATION TYPE: XR mandible complete DATE OF EXAM: 01/26/2024 COMPARISON: None HISTORY: Fall, pain TECHNIQUE: 5 view and verbal FINDINGS: No acute fractures evident. The patient is a dentulous. No acute fractures or dislocations evident. Temporomandibular junctions appear unremarkable IMPRESSION: 1. Unremarkable mandible. No acute osseous abnormality evident.
== END | disposition home or self-care (01) ==
LOC: RADXRMAIN 13:16
PROVIDERS: ATTEND Internal Medicine
DX: S09.93XA Unspecified injury of face, initial encounter (principal)
CPT/HCPCS: 70110

== ENCOUNTER → 2024-05-10 | Outpatient (CLI) | payer MEDICARE ==
--- NOTE | 2024-05-10 15:17 | MR ---
EXAMINATION TYPE: MR lumbar spine wo con DATE OF EXAM: 05/10/2024 12:04 PM COMPARISON: NONE HISTORY: Lower back pain, LLE radiculopathy. Multiplanar, MultiSpin echo imaging of the lumbar spine was performed. L1-L2: Moderate disc desiccation posterior disc bulge. Mild effacement of the ventral thecal sac with out central stenosis or jude disc herniation. Mild bilateral foraminal encroachment. L2-L3: Moderate disc desiccation seen. No herniation, protrusion or disc bulging. No canal stenosis is present. Foramina are patent bilaterally. L3-L4: Moderate disc desiccation noted. No herniation, protrusion or disc bulging. No canal stenosis is present. Foramina are patent bilaterally. L4-L5: Grade 1 anterolisthesis L4 on L5 measuring 3 mm. Moderate disc desiccation moderate posterior disc bulge. Hypertrophy of the ligamentum flavum as well as facet joint arthropathy resulting in mode rate to severe central stenosis. Right greater than left foraminal encroachment. L5-S1: Normal disc appearance without desiccation. No herniation, protrusion or disc bulging. No ca nal stenosis is present. Foramina are patent bilaterally. Lumbar segments are intact. No paraspinal masses are identified. Conus medullaris has a normal appe arance. IMPRESSION: 1. Degenerative disc disease as discussed. 2. Central stenosis at L4-5 as outlined above [facility] Deyanira Feliz, , 05/10/2024 3:15 PM
== END | disposition home or self-care (01) ==
LOC: RADMRIMAIN 11:10
PROVIDERS: ATTEND Orthopaedic Surgery
CPT/HCPCS: 72148

== ENCOUNTER → 2024-06-12 | Outpatient (CLI) | payer MEDICARE ==
[2024-06-12 13:50] LABS: Creatinine,Urine Random 94.1 mg/dL; Protein/Creatinine Ratio,Urine 0.085
[2024-06-12 19:04] LABS: Basophils # (A) 0.05 X 10*3/uL (0.00-0.10); Basophils % (A) 0.6 %; Eosinophils # (A) 0.13 X 10*3/uL (0.04-0.35); Eosinophils % (A) 1.7 %; HCT 43.4 % (37.2-46.3); HGB 14.2 g/dL (12.0-15.0); Lymphocytes # (A) 1.77 X 10*3/uL (0.90-5.00); Lymphocytes % (A) 22.8 %; MCH 30.6 pg (27.0-32.0); MCHC 32.7 g/dL (32.0-37.0); MCV 93.5 FL (80.0-97.0); Mean Platelet Volume 10.4 FL (9.5-12.2); Monocytes # (A) 0.54 X 10*3/uL (0.20-1.00); NRBC Per 100 WBC 0 X 10*3/uL (0.00-0.01); Neutrophils # (A) 5.24 X 10*3/uL (1.80-7.70); Neutrophils % (A) 67.6 %; Platelet Count 275 X 10*3/uL (140-440); RBC 4.64 X 10*6/uL (4.10-5.20); RDW 11.8 % (11.5-14.5); WBC 7.75 X 10*3/uL (4.50-10.00)
[2024-06-12 19:47] LABS: Microalbumin Creatinine Ratio <13 mg/g Cr (0-30); Urine Creatinine 95.8 mg/dL (28.0-217.0)
[2024-06-12 20:03] LABS: % Iron Saturation 21.48 (12.00-45.00); ALT 24 U/L (8-44); AST 33 U/L (13-35); Albumin 4.4 g/dL (3.8-4.9); Albumin/Globulin Ratio 1.52 Ratio (1.60-3.17); Alkaline Phosphatase 91 U/L (41-126); BUN/Creat Ratio 18.56 Ratio (12.00-20.00); Blood Urea Nitrogen 16.7 mg/dL (9.0-27.0); C Reactive Protein <0.30 mg/dL (0.00-0.80); Calcium 9.7 mg/dL (8.7-10.3); Carbon Dioxide 23.6 mmol/L (21.6-31.8); Chloride 102 mmol/L (96-109); Chol/HDL Ratio 2.62 Ratio; Creatine Kinase 218 U/L (26-186); Globulin 2.9 g/dL (1.6-3.3); Glucose 111 mg/dL (70-110); Iron 90 UG/DL (50-170); LDL Cholesterol,Calculated 54.2 mg/dL (0.0-131.0); Magnesium 1.8 mg/dL (1.5-2.4); Phosphorus 3.4 mg/dL (2.4-5.1); Potassium 4.5 mmol/L (3.5-5.5); Sodium 140 mmol/L (135-145); Total Bilirubin 0.6 mg/dL (0.3-1.2); Total Iron Binding Capacity 419 UG/DL (228-460); Total Protein 7.3 g/dL (6.2-8.2)
[2024-06-12 20:29] LABS: Erythrocyte Sedimentation Rate 18 mm/Hr (0-30)
[2024-06-12 22:19] LABS: DNA Double-Stranded Negative (Negative)
== END | disposition home or self-care (01) ==
LOC: LABWHC1 12:51
PROVIDERS: ATTEND Internal Medicine
DX: D64.9 Anemia, unspecified (principal); J44.9 Chronic obstructive pulmonary disease, unspecified; I10 Essential (primary) hypertension; E87.8 Other disorders of electrolyte and fluid balance, not elsewhere classified; M10.00 Idiopathic gout, unspecified site; N18.30 Chronic kidney disease, stage 3 unspecified; E78.5 Hyperlipidemia, unspecified; E05.90 Thyrotoxicosis, unspecified without thyrotoxic crisis or storm; E66.9 Obesity, unspecified
CPT/HCPCS: 36415; 80053; 80061; 82043; 82306; 82550; 82570; 82728; 83036; 83540; 83550; 83735; 83970; 84100; 84156; 84443; 84550; 85025; 85652; 86038; 86140; 86225

== ENCOUNTER → 2024-07-19 | Outpatient (CLI) | payer MEDICARE ==
--- NOTE | 2024-07-19 14:58 | P.PAINPG ---
PQRS Measure Charge Sheet Comment: HISTORY OF PRESENT ILLNESS: A 74 yr old female w at side as a referral from [facility] presents today w severe and chronic LBP > 1 yr secondary to radiculopathy, spondylosis and facet arthropathy without myelopathy for evaluation. Pt states pain level is provoked at 8 /10 in intensity, constant, localized in the lumbar spine, predominantly axial, achy in character w occasional shooting pain towards the LEs, L> R. Pain is provoked by doing ADLs at home. Pain is alleviated by chiropractic treatments semi monthly x 5 mo which ended in 2020, physician guided exercises every other day at gym since 2021, physician guided home stretches daily since 2020, ice, medications (Neurontin, Ibu), topical BioFreeze & Icy-Hot, use of a cane for ambulatory assistance, repositioning and rest . Oswestry axial pain score at 26. PMH: OA, CAD, Hyperlipidemia, HTN, Anxiety PSH: R Femoral Artery Stent (2023), Heart Catheterization With Stent x2 (1998), BL Shoulder Surgeries, BL Knee Replacement, Orthopedic Surgery, L Cataract Resection, Uterine Polypectomy, EGD (2021) SH: Former tobacco user, No ETOH use, No illicit drug use FH: Mo- No Reported History All: See list Meds: See list including Plavix, Neurontin, Ibu REVIEW OF ORGAN SYSTEMS: CONSTITUTIONAL: No fevers or chills. No recent weight loss. NEUROLOGICAL: + numbness and tingling along the distal extremities. No seizure disorders or headaches. MUSCULOSKELETAL: + pain PSYCHIATRIC: Denies current depression or suicidal thoughts. Physical Examinations : Constitutional : Cooperative , not in acute distress . Neurologic : Cranial nerve II to XII intact. No focal eamon rological deficits. Psychiatric : alert & oriented x 3. Matching mood & appropriate affect. Judgment & insight intact. Musculoskeletal : Cervical Spine Motor strength in the deltoid and biceps: Normal right side. Normal Left side Motor strength biceps and the wrist extensors: Normal right side . Normal left side Motor strength in the triceps muscle: Normal right side. Normal left side Deep tendon reflexes: Normal at the biceps. Normal at Brachioradialis. Normal at triceps Vertebral body tenderness to deep pal pation over Cervical facet loading test: positive bilaterally Spurling test: positive bilaterally Neck distraction test: positive bilaterally Blaine sign: positive bilaterally Lumbar spine Motor strength lower extremities ,thigh and legs 5/5 Right side , 5/5 Left side Deep tendon reflexes : Normal Knee Jerk. Normal Ankle Jerk Vertebral body tenderness over L4 Mcgarry Test positive L4-L5 Lumbar facet Loading Test: positive Right / positive Left Range of motion of the lumbar spine Flexion 30 degrees, extension 10 degrees Straight Leg Raise test: Left/ Right positive at degrees Donya test: positive right / positive left. Severe tenderness over the Sacroiliac joint on the Right / Left sides Gaenslen test: positive bilaterally Seated flexion test: positive bilaterally. Sacral spine : Severe tenderness over the Sacroiliac joint: right side / left side Range of motion: Flexion of the lumbar spine <60 degrees Range of motion: Extension of the lumbar spine <20 degrees Gaenslen's Test positive Donya test: positive right side / left side Thigh Thrust Test Sacral Thrust Test Imaging: MRI non contrast lumbar spine form 05/10/24 reviewed Assessment/ Plan : L4-L5 anterolisthesis, lumbar radiculopathy Recommendation of KANDACE L4-L5 #1. Risks, benefits of procedure discussed and patient verbalized understanding. Admits to anti- coagulant use or medical history of diabetes. Protocol for discontinuation/ continuation of medications mariela procedure discussed. All questions answered. I have spent greater than 30 minutes on patient care today. Dr Carroll was available by phone for the evaluation of this patient. The time was used to review the medical records including relevant urine studies and Prescription history (MAPs), review of the available imaging, evaluation and examination of the patient, coordination of care with the medical staff and if applicable referring physicians, as well as creation of the medical record PQRS Narrative: Smoking Status Former smoker Home Medications: Ambulatory Orders Gabapentin [Neurontin] 300 mg PO TID 06/25/15 Multivit-Min/FA/Lycopen/Lutein [Centrum Silver Tablet] 1 tab PO DAILY 06/25/15 Zinc Gluconate [Zinc] 50 mg PO DAILY 01/21/16 atenoloL [Tenormin] 50 mg PO DAILY 05/05/19 Atorvastatin [Lipitor] 10 mg PO HS 08/04/20 DULoxetine HCL [Cymbalta] 60 mg PO DAILY 08/04/20 Magnesium 250 mg PO HS 08/04/20 Albuterol Sulfate [Albuterol Sulfate Hfa] 2 puff PO RT-Q6H PRN 05/31/21 Calcium Carbonate/Vitamin D3 [Calcium 500 mg Chewable Tablet] 1 tab PO DAILY 09/27/23 Cyanocobalamin (Vitamin B-12) [Vitamin B-12] 1,000 mcg PO DAILY 09/27/23 Furosemide [Lasix] 40 mg PO DAILY 09/27/23 Losartan Potassium 100 mg PO DAILY 09/27/23 Vitamin B Complex 1 each PO DAILY 09/27/23 Acetaminophen-Codeine 300-30mg [Tylenol w/codeine #3] 1 tab PO Q4H PRN 3 Days #18 tablet 07/19/24 Clopidogrel [Plavix] 1 tab PO DAILY 07/19/24 Ibuprofen [Motrin] 800 mg PO Q8H PRN 07/19/24 Solifenacin Succinate 5 mg PO HS 07/19/24 Controlled Substance Measures - Controlled Substance Measures Is patient prescribed a controlled substance at discharge?: Yes When asked, does pt state using other controlled substances?: No If prescribed controlled substance>3 days was MAPS reviewed?: Prescribed <3 Days
[2024-07-19 15:12] VITALS: BP 158/71; PULSE 63; RESP 16; TEMP 98.2
== END ==
LOC: PNWHC3 12:58
PROVIDERS: ATTEND Specialist
DX: M54.16 Radiculopathy, lumbar region (principal); M43.16 Spondylolisthesis, lumbar region; Z88.0 Allergy status to penicillin; Z88.2 Allergy status to sulfonamides; Z88.1 Allergy status to other antibiotic agents; Z91.09 Other allergy status, other than to drugs and biological substances; Z88.8 Allergy status to other drugs, medicaments and biological substances; Z87.891 Personal history of nicotine dependence
CPT/HCPCS: 99211

== ENCOUNTER → 2024-07-26 | Outpatient (CLI) | payer MEDICARE ==
[2024-07-26 15:03] LABS: HCT 42.6 % (37.2-46.3); HGB 13.8 g/dL (12.0-15.0); MCH 29.9 pg (27.0-32.0); MCHC 32.4 g/dL (32.0-37.0); MCV 92.2 FL (80.0-97.0); NRBC Per 100 WBC 0 X 10*3/uL (0.00-0.01); Platelet Count 275 X 10*3/uL (140-440); RBC 4.62 X 10*6/uL (4.10-5.20); WBC 8.77 X 10*3/uL (4.50-10.00)
[2024-07-26 15:14] LABS: Blood Urea Nitrogen 16.6 mg/dL (9.0-27.0); Carbon Dioxide 28.9 mmol/L (21.6-31.8); Chloride 102 mmol/L (96-109); Potassium 4.1 mmol/L (3.5-5.5); Sodium 143 mmol/L (135-145)
== END | disposition home or self-care (01) ==
LOC: LABPAT 10:14
PROVIDERS: ATTEND Internal Medicine
DX: Z01.812 Encounter for preprocedural laboratory examination (principal); R94.39 Abnormal result of other cardiovascular function study; R07.9 Chest pain, unspecified; R06.02 Shortness of breath
CPT/HCPCS: 80051; 82565; 84520; 85027

== ENCOUNTER 2024-08-01 08:34 | Day surgery (SDC) | payer MEDICARE ==
[~2024-08-01 08:34] MED LIST changes: +ALPRAZolam 0.5 MG TAB PO PRN; -ASPIRIN 325 MG TAB PO PRN; +ASPIRIN 325 MG TAB PO STA; +ATORVASTATIN 80 MG TAB PO STA; -EMPTY BAG 1 BAG with SODIUM CHLORIDE 0.9% 1,000 ML IV SCH; -HEPARIN SODIUM,PORCINE (1 ML) 2,500 UNIT in SODIUM CHLORIDE 0.9% 250 ML IRRIGATION PRN; -HEPARIN SODIUM,PORCINE 10,000 UNIT in SODIUM CHLORIDE 0.9% 1,000 ML IRRIGATION PRN; +NITROGLYCERIN SL TABS 0.4 MG TAB SUBLINGUAL PRN; -ZOLPIDEM 5 MG TAB PO PRN
[2024-08-01] MEDS: SODIUM CHLORIDE 0.9% 1,000 ML in EMPTY BAG 1 BAG IV SCH (08:46)
[2024-08-01 08:58] VITALS: RESP 18; TEMP 98.6
[2024-08-01] MEDS: IV FLUID CONTINUATION 1,000 ML IV ONE (08:58)
[2024-08-01] MEDS: LIDOCAINE 1% INJ 10MG/ML (20 ML MDV) SQ ONE (10:45)
[2024-08-01] MEDS: fentaNYL (PF) 50 MCG/1 ML VIAL IVP ONE ×2 (10:46→11:07)
[2024-08-01] MEDS: MIDAZOLAM 2 MG/2 ML VIAL IVP ONE ×2 (10:46→11:07)
[2024-08-01] MEDS: VERAPAMIL SYRINGE (5 MG/10 ML) INTRAARTER ONE ×2 (10:46→11:06)
[2024-08-01] MEDS: HEPARIN SODIUM 1,000 UN/ML (10ML VL) IVP ONE ×2 (10:50→11:36)
[2024-08-01] MEDS: HEPARIN SODIUM,PORCINE 10,000 UNIT in SODIUM CHLORIDE 0.9% 1,000 ML IRRIGATION PRN (10:51)
[2024-08-01] MEDS: HEPARIN SODIUM,PORCINE (1 ML) 2,500 UNIT in SODIUM CHLORIDE 0.9% 250 ML IRRIGATION PRN (10:51)
[2024-08-01] MEDS: NITROGLYCERIN 1000MCG/10ML SYRINGE INTRACORON ONE ×2 (11:24)
[2024-08-01] MEDS: CLOPIDOGREL 75 MG TAB PO ONE (11:45)
[2024-08-01] MEDS: IOPAMIDOL-370 100ML BTL INJ ONE (11:46)
[2024-08-01] MEDS ORDERED: RX INFO: IV CONTRAST WAS GIVEN 1 EACH MISC MISCELLANE PRN (13:33)
[2024-08-01] MEDS ORDERED: ATROPINE SULFATE 0.1 MG/ML 10ML SYRINGE IV PRN (13:33)
[2024-08-01] MEDS ORDERED: MAG HYDROX/AL HYDROX/SIMETH 30 ML CUP PO PRN (13:33)
[2024-08-01] MEDS ORDERED: ZOLPIDEM 5 MG TAB PO PRN (13:33)
[2024-08-01] MEDS ORDERED: SODIUM CHLORIDE 0.9% 1,000 ML in EMPTY BAG 1 BAG IV SCH (13:45)
[2024-08-01] MEDS: SODIUM CHLORIDE 0.9% 500 ML 500 ML IV ONE (14:00)
[2024-08-01 16:52] VITALS: BP 172/77; PULSE 62
--- NOTE | 2024-08-03 16:20 | P.PRCINT ---
Percutaneous Coronary Int. - Percutaneous Coronary Intervention Percutaneous Coronary Intervention: PROCEDURES PERFORMED: Left heart catheterization, bilateral coronary angiography, ultrasound guided arterial access, iFR LAD, IVUS LAD, PCI proximal to mid LAD with 3.5 x 23mm Xience AYAZ, post dilated with a 3.5mm NC balloon INDICATION: Abnormal stress test, dyspnea on exertion [place] Heart Association class IV symptoms, prior CAD and stenting of LAD CONSENT:The risks, benefits and alternative therapies for the above-mentioned procedure and for both sedation/analgesia as well as necessary blood product administration, if indicated, as they pertain to this patient were discussed with the patient. The patient has indicated understanding and acceptance of the risks and procedures discussed. PROCEDURE: After the risks, benefits and alternatives of the above mentioned procedure explained in detail with the patient, informed consent was obtained. Patient was taken to the catheterization lab and prepped and draped in usual fashion. Ultrasound guidance was used to assess for arterial access. 1% lidocaine was used to anesthetize the right radial artery. A 6-Macanese sheath was placed in the right radial artery using modified Seldinger technique and ultrasound guidance. Left coronary angiography was performed with a 5-Macanese JL 3.5 catheter and right coronary angiography was performed with a 5-Macanese FR5 catheter in various views. A 5-Macanese FR5 catheter was inserted into the left ventricle and pressure measurements were obtained. The decision was made to perform functional assessment of LAD. Heparin was given. A 6-Macanese CLS 3.5 guide was used to engage the left main. A 0.014 pressure wire was advanced into the left main and normalized. It was then advanced into the mid and then distal LAD. At the mid LAD it was significantly abnormal at 0.74 and then advanced past the 50-60% lesion with no significant stepdown going to 0.73. The majority of the pressure gradient was related to the in-stent stenosis. Therefore decision made to treat the in-stent stenosis. Predilation was performed with a 2.75 x 8 mm noncompliant balloon. Intravascular ultrasound showed reference vessel approximately 3.5 mm. Predilation was performed with a 3.5 mm noncompliant balloon. Next a 3.5 x 23 mm drug-eluting stent was placed overlapping somewhat more proximal of the stent as well as distally of the stent. The stent was then postdilated with a 3.5 mm noncompliant balloon. Final angiograms were performed. Pre intervention there was 80% stenosis and TANESHA-3 flow and post intervention there was less than 10% stenosis and TANESHA-3 flow The right radial sheath was removed and a TR band was placed with hemostasis achieved. The patient tolerated the procedure well. Patient was transported back to the post catheterization holding area in stable condition. Conscious Sedation: Patient was monitored under the direct supervision of myself for conscious sedation using Versed and fentanyl for a total duration of 57 minutes HEMODYNAMICS: Ao: 187/84 LV: 184/22, LVEDP 25 SELECTIVE CORONARY ARTERIOGRAPHY: LEFT MAIN: The left main is a large caliber vessel which bifurcates into the LAD and circumflex. There is no significant stenosis. LEFT ANTERIOR DESCENDING CORONARY ARTERY: LAD is a large caliber vessel which wraps around to the apex. There is a proximal LAD stent just after a moderate to large caliber septal branch with diffuse in-stent stenosis with more focal 80% distal edge stenosis. There is additional 50-60% mid to distal LAD stenosis. LEFT CIRCUMFLEX CORONARY ARTERY: Left circumflex is a moderate caliber vessel with 30% stenosis of the proximal circumflex. RIGHT CORONARY ARTERY: The right coronary artery is a large caliber vessel which gives off a PDA and PLV branch and is the dominant vessel. There is mild 20-30% stenosis of the mid RCA FINAL IMPRESSION: 1. CAD as described above including 80% proximal LAD in-stent stenosis, 50-60% mid to distal LAD stenosis, 20-30% circumflex and RCA stenosis 2. Elevated left sided filling pressures 3. Abnormal iFR of LAD 4. Status post PCI proximal to mid LAD with 3.5 x 23mm Xience AYAZ, post dilated with a 3.5mm NC balloon PLAN: 1. Aggressive risk factor modification per most recent ACC/AHA guidelines. 2. Continue dual antiplatelets with aspirin and Plavix for 12 months
== END 2024-08-01 16:51 | disposition home or self-care (01) ==
LOC: CATHCVL 08:34
PROVIDERS: ATTEND Internal Medicine
DX: I25.10 Atherosclerotic heart disease of native coronary artery without angina pectoris (principal); I11.0 Hypertensive heart disease with heart failure; I50.32 Chronic diastolic (congestive) heart failure; I44.7 Left bundle-branch block, unspecified; E78.5 Hyperlipidemia, unspecified; F17.210 Nicotine dependence, cigarettes, uncomplicated; E66.9 Obesity, unspecified; Z95.5 Presence of coronary angioplasty implant and graft; Z68.43 Body mass index [BMI] 50.0-59.9, adult; Z88.0 Allergy status to penicillin; Z88.2 Allergy status to sulfonamides; Z88.5 Allergy status to narcotic agent; Z79.02 Long term (current) use of antithrombotics/antiplatelets; Z79.899 Other long term (current) drug therapy
CPT/HCPCS: 92978; 93458; 93799; 99152; 99153; C9600; C1769 ×3; C1894; C1753; C1874; C1725 ×2; J2250; J1644 ×3; J2003; Q9967; J3010; J2305

== ENCOUNTER → 2025-01-09 | Outpatient (CLI) | payer MEDICARE ==
[2025-01-09 12:42] VITALS: PULSE 60; RESP 17
--- NOTE | 2025-01-09 16:16 | P.PAINPG ---
Objective - Vital Signs Vital signs: Vital Signs Temp Pulse 60 01/09/25 12:33 Resp 17 01/09/25 12:33 BP Pulse Ox 93 L 01/09/25 12:33 FiO2 Intake & Output 01/08/25 01/09/25 01/09/25 18:59 06:59 18:59 Weight 127.006 kg PQRS Measure Charge Sheet Mode of Arrival: Ambulatory Comment: HISTORY OF PRESENT ILLNESS: A 74 yr old female w at side presents today w severe and chronic LBP > 1 yr secondary to radiculopathy, spondylosis and facet arthropathy without myelopathy for evaluation. Pt states pain level is provoked at 8 /10 in intensity, constant, localized in the lumbar spine, predominantly axial, achy in character w occasional shooting pain towards the LEs, L> R. Pain is provoked by doing ADLs at home. Pain is alleviated by chiropractic treatments semi monthly x 5 mo which ended in 2020, physician guided exercises every other day at gym since 2021, physician guided home stretches daily since 2020, ice, medications (Neurontin, Ibu), topical BioFreeze & Icy-Hot, use of a cane for ambulatory assistance, repositioning and rest . Oswestry axial pain score at 26. Interventional procedures include Heart Catheterization With Stent x2 (1998, 2024), BL Shoulder Surgeries, BL Knee Replacement Medications include Plavix, Neurontin, Ibu, Plavix, ASA REVIEW OF ORGAN SYSTEMS: CONSTITUTIONAL: No fevers or chills. No recent weight loss. NEUROLOGICAL: + numbness and tingling along the distal extremities. No seizure disorders or headaches. MUSCULOSKELETAL: + pain PSYCHIATRIC: Denies current depression or suicidal thoughts. Physical Examinations : Constitutional : Cooperative , not in acute distress . Neurologic : Cranial nerve II to XII intact. No focal neurological deficits. Psychiatric : alert & oriented x 3. Matching mood & appropriate affect. Judgment & insight intact. Musculoskeletal : Cervical Spine Motor strength in the deltoid and biceps: Normal right side. Normal Left side Motor strength biceps and the wrist extensors: Normal right side . Normal left side Motor strength in the triceps muscle: Normal right side. Normal left side Deep tendon reflexes: Normal at the biceps. Normal at Brachioradialis. Normal at triceps Vertebral body tenderness to deep palpation over Cervical facet loading test: positive bilaterally Spurling test: positive bilaterally Neck distraction test: positive bilaterally Blaine sign: positive bilaterally Lumbar spine Motor strength lower extremities ,thigh and legs 5/5 Right side , 5/5 Left side Deep tendon reflexes : Normal Knee Jerk. Normal Ankle Jerk Vertebral body tenderness over L4 Mcgarry Test positive L4-L5 Lumbar facet Loading Test: positive Right / positive Left Range of motion of the lumbar spine Flexion 30 degrees, extension 10 degrees Straight Leg Raise test: Left/ Right positive at degrees Donya test: positive right / positive left. Severe tenderness over the Sacroiliac joint on the Right / Left sides Gaenslen test: positive bilaterally Seated flexion test: positive bilaterally. Sacral spine : Severe tenderness over the Sacroiliac joint: right side / left side Range of motion: Flexion of the lumbar spine <60 degrees Range of motion: Extension of the lumbar spine <20 degrees Gaenslen's Test positive Donya test: positive right side / left side Thigh Thrust Test Sacral Thrust Test Imaging: MRI non contrast lumbar spine form 05/10/24 reviewed Assessment/ Plan : L4-L5 anterolisthesis, lumbar radiculopathy Recommendation of KANDACE L4-L5 #1. Risks, benefits of procedure discussed and patient verbalized understanding. Admits to anti- coagulant use or medical history of diabetes. Protocol for discontinuation/ continuation of medications mariela procedure discussed. All questions answered. I have spent greater than 30 minutes on patient care today. Dr Carroll was available by phone for the evaluation of this patient. The time was used to review the medical records including relevant urine studies and Prescription history (MAPs), review of the available imaging, evaluation and examination of the patient, coordination of care with the medical staff and if applicable referring physicians, as well as creation of the medical record - Pain Location Lower Back Pharmacological Interventions: Medication PQRS Narrative: Smoking Status Former smoker Pain Intensity [Lower Back] 2 Scale Used Numeric (1 - 10) Hx Alcohol Use (MH) No Home Medications: Ambulatory Orders Gabapentin [Neurontin] 300 mg PO TID 06/25/15 Multivit-Min/FA/Lycopen/Lutein [Centrum Silver Tablet] 1 tab PO DAILY 06/25/15 Zinc Gluconate [Zinc] 50 mg PO DAILY 01/21/16 atenoloL [Tenormin] 50 mg PO DAILY 05/05/19 Atorvastatin [Lipitor] 10 mg PO HS 08/04/20 DULoxetine HCL [Cymbalta] 60 mg PO DAILY 08/04/20 Magnesium 250 mg PO HS 08/04/20 Albuterol Sulfate [Albuterol Sulfate Hfa] 2 puff PO RT-Q6H PRN 05/31/21 Calcium Carbonate/Vitamin D3 [Calcium 500 mg Chewable Tablet] 1 tab PO DAILY 09/27/23 Cyanocobalamin (Vitamin B-12) [Vitamin B-12] 1,000 mcg PO DAILY 09/27/23 Furosemide [Lasix] 40 mg PO DAILY 09/27/23 Losartan Potassium 100 mg PO DAILY 09/27/23 Vitamin B Complex 1 each PO DAILY 09/27/23 Acetaminophen-Codeine 300-30mg [Tylenol w/codeine #3] 1 tab PO Q4H PRN 3 Days #18 tablet 07/19/24 Clopidogrel [Plavix] 1 tab PO DAILY 07/19/24 Ibuprofen [Motrin] 800 mg PO Q8H PRN 07/19/24 Solifenacin Succinate 5 mg PO HS 07/19/24 Aspirin 81 mg PO DAILY 08/01/24 diazePAM [Valium] 5 mg PO DAILY 1 Days #2 tab 01/09/25 Controlled Substance Measures - Controlled Substance Measures Is patient prescribed a controlled substance at discharge?: Yes When asked, does pt state using other controlled substances?: No If prescribed controlled substance>3 days was MAPS reviewed?: Prescribed <3 Days
== END ==
LOC: PNWHC3 12:23
PROVIDERS: ATTEND Anesthesiology
DX: M47.26 Other spondylosis with radiculopathy, lumbar region (principal); M43.16 Spondylolisthesis, lumbar region; Z87.891 Personal history of nicotine dependence; Z88.0 Allergy status to penicillin; Z88.2 Allergy status to sulfonamides; Z88.1 Allergy status to other antibiotic agents; Z91.048 Other nonmedicinal substance allergy status
CPT/HCPCS: 99212

== ENCOUNTER → 2025-01-21 | Outpatient (CLI) | payer MEDICARE | END | disposition home or self-care (01) | LOC: LABWHC1 14:34 | PROVIDERS: ATTEND Psychiatry & Neurology Neurology | DX: G25.0 Essential tremor (principal); G62.9 Polyneuropathy, unspecified; R20.9 Unspecified disturbances of skin sensation; Z79.899 Other long term (current) drug therapy | CPT/HCPCS: 36415; 82607 ==